=== PATIENT | male | born 1950 | race Caucasian/White ===

== ENCOUNTER 2018-05-16 00:39 | Inpatient (IN) ==
[2018-05-16 01:00] LABS: ABG Base Excess 6.7 mmol/L (-2.4-2.3); ABG HCO3 32.4 mmhg (22.0-26.0); ABG Oxygen Saturation 97 % (90-100); ABG PH 7.35 mmol/L (7.35-7.45); ABG TCO2 34.2 mmhg (23-27)
[2018-05-16 01:01] LABS: ABG PCO2 60.7 mmhg (35.0-45.0)
[2018-05-16 01:14] LABS: Basophils % 0.6 % (0.1-2.0); Eosinophils # 0.1 K/mm3 (0.0-0.4); Eosinophils % 1.1 % (0.1-12.0); Hematocrit 45.2 % (42.0-52.0); Hemoglobin 14.6 g/dL (14.1-18.0); Lymphocytes # 0.7 K/mm3 (0.7-4.5); Lymphocytes % 9.7 K/mm3 (10-50); Mean Corpuscular HGB Conc 32.3 g/dL (31.8-35.4); Mean Corpuscular Hemoglobin 30.6 pg (27.0-31.2); Mean Corpuscular Volume 94.8 fl (80-94); Mean Platelet Volume 6.6 fl (7.4-10.4); Monocytes # 0.5 K/mm3 (0.1-1.0); Monocytes % 7.5 % (1.7-9.3); Neutrophils # 5.7 K/mm3 (1.8-7.8); Neutrophils % 81.2 % (37.0-80.0); Platelet Count 259 K/mm3 (142-424); Red Blood Count 4.76 M/mm3 (4.60-6.20); Red Cell Distribution Width 16.3 % (11.5-17.5)
[2018-05-16 01:33] LABS: Anion Gap 1.8 mEq/L (5-15); Calcium 8.7 mg/dL (8.5-10.1); Potassium 3.8 mmoL/L (3.5-5.1)
--- NOTE | 2018-05-16 02:26 | Emergency Department Note ---
ED Disposition Clinical Impression: Acute exacerbation of chronic obstructive airways disease, Bronchitis Disposition: Admitted as Observation Condition on Discharge: Good Referrals: Dami Finch MD [Primary Care Provider] - - Critical Care Critical Care Time: No Attestation: On 05/16/18, the high probability of a clinically significant, sudden or life threatening deterioration of the following system(s) required my full and direct attention, intervention and personal management. The time I documented below is in addition to time spent performing reported procedures but includes the following listed in this critical care notation. Medical Decision Making - Medical Records Medical records reviewed: Yes: I reviewed the patient's medical records. - Carlos Inquiry Pt receiving controlled substance: No Vital Signs: 05/16/18 00:41 05/16/18 01:00 05/16/18 01:10 Temperature 98.9 F Temperature Source Oral Pulse Rate 89 83 Pulse Rate [Right Brachial] 100 H Respiratory Rate 22 Blood Pressure [Right Arm] 166/109 Blood Pressure Mean [Right Arm] 128 Blood Pressure Source [Right Arm] Automatic Cuff Blood Pressure Position [Right Arm] Sitting 02 Sat by Pulse Oximetry 93 L 96 Oxygen Delivery Method Nasal Cannula Nasal Cannula Oxygen Flow Rate (LPM) 2 6 05/16/18 01:28 05/16/18 01:30 Temperature Temperature Source Pulse Rate Pulse Rate [Right Brachial] 90 92 H Respiratory Rate 20 16 Blood Pressure [Right Arm] 168/94 150/98 Blood Pressure Mean [Right Arm] 118 115 Blood Pressure Source [Right Arm] Automatic Cuff Blood Pressure Position [Right Arm] Sitting 02 Sat by Pulse Oximetry 96 92 L Oxygen Delivery Method Nasal Cannula Nasal Cannula Oxygen Flow Rate (LPM) 2 2 - Lab Data Lab results reviewed: Yes: I reviewed the patient's lab results. Lab Results 05/16/18 00:45: WBC 7.0, RBC 4.76, Hgb 14.6, Hct 45.2, MCV 94.8 H, MCH 30.6, MCHC 32.3, RDW 16.3, Plt Count 259, MPV 6.6 L, Neut % (Auto) 81.2 H, Lymph % (Auto) 9.7 L, [place] % (Auto) 7.5, Eos % (Auto) 1.1, Baso % (Auto) 0.6, Neut # (Auto) 5.7, Lymph # (Auto) 0.7, [place] # (Auto) 0.5, Eos # (Auto) 0.1, Baso # (Auto) 0.0 05/16/18 00:45: Sodium 143, Potassium 3.8, Chloride 105, Carbon Dioxide 40 H, Anion Gap 1.8 L, BUN 16, Creatinine 1.02, Estimated Creat Clear 137, Estimated GFR 73, Est GFR ( Amer) 88, Glucose 161 H, Calcium 8.7, Troponin I 0.03 05/16/18 00:45: Lactate 0.9 05/16/18 00:59: ABG pH 7.35, ABG pCO2 60.7 H, ABG pO2 85.0, ABG HCO3 32.4 H, ABG Total CO2 34.2 H, ABG O2 Saturation 97, ABG Base Excess 6.7 H Result diagrams: 05/16/18 00:45 05/16/18 00:45 Orders (Tests/Meds): ED MEDICATIONS Generic Name Dose Route Start Last Admin Trade Name Freq PRN Reason Stop Dose Admin Sodium Chloride 3 ml 05/16/18 00:57 Sodium Chloride 3% 15ml [facility] 06/15/18 00:56 ONCE PRN INDUCE SPUTUM COLLECTION Discontinued Medications Generic Name Dose Route Start Last Admin Trade Name Freq PRN Reason Stop Dose Admin Albuterol/Ipratropium 3 ml 05/16/18 00:56 05/16/18 00:58 Duoneb 3ml [facility] 05/16/18 00:57 3 ml ONCE ONE Administration Furosemide 40 mg 05/16/18 02:28 Lasix 40mg/4ml Vial IV 05/16/18 02:29 ONCE ONE Sodium Chloride 1,000 mls @ 999 mls/hr 05/16/18 01:00 05/16/18 00:58 Sod Chlor 0.9% 1000ml Bag IV 05/16/18 02:00 999 mls/hr .Q1H1M OFELIA Administration Methylprednisolone Sodium Succinate 125 mg 05/16/18 00:56 05/16/18 00:58 Solu-Medrol 125mg/2ml Vial IV 05/16/18 00:57 125 mg ONCE ONE Administration ORDERS Category Date Time Status XR chest 2V Stat Exams 05/16/18 00:56 Taken BNP [B-Type Natriuretic Peptide] Stat Lab 05/16/18 02:28 Ordered T4 (Thyroxine) Stat Lab 05/16/18 02:31 Ordered TSH [Thyroid Stimulating Hormone] Stat Lab 05/16/18 02:31 Ordered Urinalysis-Acute [Urinalysis and Microscopic] Stat Lab 05/16/18 01:00 Ordered Blood Culture Stat Micro 05/16/18 00:56 Ordered Sputum Culture & Gram Stain Stat Micro 05/16/18 00:57 Ordered Arterial Blood Gas Stat RT 05/16/18 00:56 Ordered ECG Request by /Zayda Stat Y 05/16/18 00:56 Ordered - Radiology Data #1 Image(s): Chest Image Reviewed: Yes I reviewed the patient's radiology image Preliminary Findings: Abnormal (chronic changes ) - ECG Data Tracing #1 Arrhythmias present: other (mat) Ischemic changes: non-specific ST-T wave changes Resp/SOB HPI - General Chief Complaint: Shortness of Breath/Dyspnea Stated Complaint: SHORT OF BREATH Time Seen by Provider: 05/16/18 00:55 Mode of Arrival: EMS Source of Information: Patient, EMS, Medical Record Limitations: Physical Limitations Description of Symptoms (Recalled from ER Triage Doc. by RN): HX OF COPD; DIFFICULTY WITH ADL'S BASELINE - History of Present Illness pt with sob with hx of o2 ep copd and cpap with no fever or chest pain MD Complaint: shortness of breath Onset (ago): day(s) Severity: moderate Consistency/Duration: constant Known history of: COPD Associated symptoms: denies other symptoms Treatment prior to arrival: none - Related Data Home oxygen amount: 2 liters Home Medications Medication Instructions Recorded Confirmed Unobtainable 05/16/18 05/16/18 Allergies Allergy/AdvReac Type Severity Reaction Status Date / Time morphine Allergy Unknown hallucinati Verified 05/16/18 00:58 ons [facility] History I have reviewed the patient's past medical history: Yes Medical History: Reports:: Cancer (SKIN), Diabetes Mellitus Type 2 Denies:: Internal Pacemaker, MRSA Laterality Cases: Left: Arthroscopy Shoulder Other Surgeries: No: Pacemaker Amputation: No Fractures: Yes - Social History Educational Level: Completed High School Smoking Status: Former smoker Tobacco Type: cigarettes #Yrs smoked (if former smoker): 1 Alcohol Intake: never - Psychiatric History Expresses thoughts of harming self/others: None Suicide Plan Description: No Plan ROS Obtained: Yes All systems reviewed & no additional complaints - Constitutional Constitutional: Denies fever(s) - Eyes Eyes: Denies change in vision - ENT Ears, Nose, Mouth, and Throat: Denies sinus pressure - Cardiovascular Cardiovascular: Denies chest pain, Reports dyspnea - Respiratory Respiratory: No cough, No dyspnea - Gastrointestinal Gastrointestingal: Denies: abdominal pain - Genitourinary Male Genitourinary: Denies hematuria - Musculoskeletal Musculoskeletal: Denies joint pain, Denies joint swelling - Integumentary/Breasts Skin/Breast: Denies rash - Neurologic Neurologic: Denies seizure-like activity Physical Exam - General General appearance: in no apparent distress, obese - Head Head exam: normocephalic - Eye Eye exam: Present: PERRL, EOMI - ENT ENT exam: Present: mucous membranes dry - Neck Neck exam: Present: trachea midline - Respiratory Respiratory exam: Present: wheezes, other (dec bs bilat ). Absent: respiratory distress - Cardiovascular Cardiovascular exam: Present: regular rate, systolic murmur, +S4 - Abdominal Exam Abdominal exam: Present: soft - Extremities Exam Extremities exam: Absent: calf tenderness - Neurological Exam Neurological exam: Present: alert, CN II-XII intact - Psychiatric Psychiatric exam: Present: normal affect - Skin Skin exam: Absent: rash
[2018-05-16 03:04] LABS: T4 (Thyroxine) 8.4 ug/dl (4.7-13.3); Thyroid Stimulating Hormone 0.5 uIU/ml (0.358-3.740)
[2018-05-16 03:09] LABS: Microscopic, Urine URINE MICROSCOPIC (MICROSCOPIC)
[2018-05-16 03:13] LABS: Appearance,Urine CLEAR (Clear); Bilirubin,Urine Negative (Negative); Blood, Urine Negative (Negative); Color,Urine YELLOW (Yellow); Glucose,Urine (UA) Negative (Negative); Ketones,Urine 1+ (Negative); Leukocyte Esterase,Urine Negative (Negative); PH,Urine 7.5 (5.0-8.5); Protein,Urine Negative (Negative); Specific Gravity, Urine 1.015 (1.005-1.030)
[2018-05-16 06:29] LABS: Basophils % 0.1 % (0.1-2.0); Eosinophils # 0.1 K/mm3 (0.0-0.4); Eosinophils % 0.7 % (0.1-12.0); Hematocrit 48.7 % (42.0-52.0); Hemoglobin 14.9 g/dL (14.1-18.0); Lymphocytes # 0.2 K/mm3 (0.7-4.5); Lymphocytes % 2.7 K/mm3 (10-50); Mean Corpuscular HGB Conc 30.6 g/dL (31.8-35.4); Mean Corpuscular Hemoglobin 28.9 pg (27.0-31.2); Mean Corpuscular Volume 94.5 fl (80-94); Mean Platelet Volume 6.8 fl (7.4-10.4); Monocytes # 0.3 K/mm3 (0.1-1.0); Monocytes % 4.3 % (1.7-9.3); Neutrophils # 6.2 K/mm3 (1.8-7.8); Neutrophils % 92.3 % (37.0-80.0); Platelet Count 303 K/mm3 (142-424); Red Blood Count 5.15 M/mm3 (4.60-6.20); Red Cell Distribution Width 16.5 % (11.5-17.5); White Blood Count 6.8 K/mm3 (4.8-10.8)
[2018-05-16 06:37] LABS: Calcium 9.1 mg/dL (8.5-10.1)
--- NOTE | 2018-05-16 07:20 | History & Physical Report ---
*Admission Date: 05/16/18 *Chief complaint: Shortness of air and fall *History of present illness: 67-year-old white male with long history of COPD that is oxygen requiring, as well as chronic systolic and diastolic congestive heart failure who is disabled from his disease and uses chronic CPAP at night because of chronic respiratory failure. He states that he awoke in the middle of the night and was very dyspneic, went to the bathroom and fell down. His found him with blood coming from his arms "I was agitated and scratched myself." He states that he still very "stressed" and points to his leg where he has some muscle fasciculations in the right calf that are currently ongoing. Reports that he has been increasingly afflicted with shortness of air and cough, reports that "I do not know what is wrong with me." He was brought to the emergency department, where workup showed evidence of COPD exacerbation with worsening hypercapnia-acute on chronic-he was admitted for COPD exacerbation, enhanced pulmonary toilet and further diagnostic testing. [facility] History I have reviewed the patient's past medical history: Yes Medical History: Reports:: Cancer (skin cancer - neck and nose), Cardiomyopathy, Congestive Heart Failure (Acute on chronic systolic and diastolic failure), Chronic Obstructive Pulmonary Disease (COPD) (Oxygen requiring, uses CPAP/BiPAP at night), Diabetes Mellitus Type 2, Hyperlipidemia, Hypertension Denies:: Internal Pacemaker, MRSA Laterality Cases: Left: Arthroscopy Shoulder Other Surgeries: Yes: Cancer Surgery (skin removal), Skin Cancer Excision. No: Pacemaker Amputation: No Fractures: Yes - *Social History Educational Level: Completed High School Smoking Status: Former smoker Tobacco Type: cigarettes # Packs/Day (cigarettes): 1 #Yrs smoked (if former smoker): 47 Smoking End Date: last year Alcohol Intake: former Alcohol Intake Frequency:: other Occupational Status: retired Housing: house Household Members: spouse, children - Psychiatric History Expresses thoughts of harming self/others: None Suicide Plan Description: No Plan *Family Hx:: Unable to obtain Review of Systems - Review of Systems Review of systems:: pertinent systems reviewed and negative unless documented below - Constitutional Reports fatigue, Reports lack of energy - Eyes Denies blind spots, Denies blurry vision, Denies change in vision - ENT Denies abnormal hearing, Denies bleeding gums - *Cardiovascular Reports shortness of breath, Reports shortness of breath with activity, Reports leg swelling, Reports shortness of breath when lying down, Denies chest pain, Denies rapid, pounding, or irregular heartbeat - *Respiratory Reports change in phlegm color, Reports chest congestion, Reports cough - *Gastrointestinal Denies abdominal pain, Denies belching - *Genitourinary Denies difficulty urinating - *Musculoskeletal Reports abnormal walking, Reports muscle cramps - *Neurologic Denies abnormal walking, Denies seizure-like activity Meds Home Medications Medication Instructions Recorded Confirmed Type Unobtainable 05/16/18 05/16/18 History Allergies Allergy/AdvReac Type Severity Reaction Status Date / Time morphine Allergy Unknown hallucinati Verified 05/16/18 00:58 ons Exam Vital signs and Labs for Last 24 Hours: Temp Pulse Resp BP Pulse Ox 98.5 F 84 42 H 164/101 93 L 05/16/18 03:14 05/16/18 06:16 05/16/18 05:42 05/16/18 05:42 05/16/18 06:16 Laboratory Results - last 24 hr 05/16/18 00:45: WBC 7.0, RBC 4.76, Hgb 14.6, Hct 45.2, MCV 94.8 H, MCH 30.6, MCHC 32.3, RDW 16.3, Plt Count 259, MPV 6.6 L, Neut % (Auto) 81.2 H, Lymph % (Auto) 9.7 L, [place] % (Auto) 7.5, Eos % (Auto) 1.1, Baso % (Auto) 0.6, Neut # (Auto) 5.7, Lymph # (Auto) 0.7, [place] # (Auto) 0.5, Eos # (Auto) 0.1, Baso # (Auto) 0.0 05/16/18 00:45: Sodium 143, Potassium 3.8, Chloride 105, Carbon Dioxide 40 H, Anion Gap 1.8 L, BUN 16, Creatinine 1.02, Estimated Creat Clear 137, Estimated GFR 73, Est GFR ( Amer) 88, Glucose 161 H, Calcium 8.7, Troponin I 0.03 05/16/18 00:45: Lactate 0.9 05/16/18 00:45: B-Natriuretic Peptide 32 05/16/18 00:45: TSH 0.50, Thyroxine (T4) 8.4 05/16/18 00:59: ABG pH 7.35, ABG pCO2 60.7 H, ABG pO2 85.0, ABG HCO3 32.4 H, ABG Total CO2 34.2 H, ABG O2 Saturation 97, ABG Base Excess 6.7 H 05/16/18 02:48: Urine Color Yellow, Urine Appearance Clear, Urine pH 7.5, Ur Specific [place] 1.015, Urine Protein Negative, Urine Glucose (UA) Negative, Urine Ketones 1+, Urine Blood Negative, Urine Nitrate Negative, Urine Bilirubin Negative, Urine Urobilinogen 4.0, Ur Leukocyte Esterase Negative, Urine WBC 3-5 05/16/18 06:05: WBC 6.8, RBC 5.15, Hgb 14.9, Hct 48.7, MCV 94.5 H, MCH 28.9, MCHC 30.6 L, RDW 16.5, Plt Count 303, MPV 6.8 L, Neut % (Auto) 92.3 H, Lymph % (Auto) 2.7 L, [place] % (Auto) 4.3, Eos % (Auto) 0.7, Baso % (Auto) 0.1, Neut # (Auto) 6.2, Lymph # (Auto) 0.2 L, [place] # (Auto) 0.3, Eos # (Auto) 0.1, Baso # (Auto) 0.0 05/16/18 06:05: Sodium 145, Potassium 4.0, Chloride 102, Carbon Dioxide 37 H, Anion Gap 10.0, BUN 18, Creatinine 1.14, Estimated Creat Clear 79, Estimated GFR 64, Est GFR ( Amer) 78, Glucose 205 H D, Calcium 9.1, Magnesium 2.2, Troponin I 0.02 05/16/18 06:15: POC Glucose 187 H I & O for Last 24 hours: Intake & Output 05/13/18 05/14/18 05/15/18 05/16/18 11:59 11:59 11:59 11:59 Intake Total 300 / 300 Balance 300 / 300 Weight 194 lb 3 oz Narrative: Patient is awake oriented 3. Patient is resting on oxygen, does have to take a breath after couple of sentences because of baseline dyspnea. Oropharynx clear. No JVD morning. Lungs have rhonchi throughout, fairly symmetric air entry. Heart regular. Exam compromised abnormal lung sounds. No edema in extremities. Does have muscle fasciculations in the right calf. Able to move all extremities well. Cranial nerves intact. Assessment and Plan (1) Acute on chronic respiratory failure with hypoxia Current visit: Yes Status: Acute Category: Medical Code(s): J96.21 - Acute and chronic respiratory failure with hypoxia Patient is alert. Seems more comfortable. Hold off on BiPAP at this point. Increased pulmonary toilet continue nebulizer treatment levofloxacin and steroids. (2) Diabetes mellitus type 2 in nonobese Current visit: Yes Status: Acute Category: Medical Code(s): E11.9 - Type 2 diabetes mellitus without complications Sliding scale insulin therapy. Try to obtain home medication list (3) Anxiety disorder Current visit: Yes Status: Acute Category: Medical Code(s): F41.9 - Anxiety disorder, unspecified Patient seems afflicted with significant anxiety disorder and this may have caused his fall and shortness of air last night. Low-dose Prn Ativan this morning. (4) Fasciculation of lower extremity Current visit: Yes Status: Acute Category: Medical Code(s): R25.3 - Fasciculation (5) Acute exacerbation of chronic obstructive airways disease Current visit: Yes Status: Acute Category: Medical Code(s): J44.1 - Chronic obstructive pulmonary disease with (acute) exacerbation (6) Bronchitis Current visit: Yes Status: Acute Category: Medical Code(s): J40 - Bronchitis, not specified as acute or chronic
--- NOTE | 2018-05-16 07:26 | Pharmacy Consult Notes ---
[facility] Pharmacy VTE Monitoring - Patient Demographics Admission date: 05/16/18 Report Date: 05/16/18 Time: 07:26 Allergies/Adverse Reactions: Patient Allergies morphine Allergy (Unknown, Verified 05/16/18 00:58) hallucinations Height: 1.83 m Weight: 88.082 kg Patient Problems: Current Active Problems Acute exacerbation of chronic obstructive airways disease (Acute) Bronchitis (Acute) Acute on chronic respiratory failure with hypoxia (Acute) Diabetes mellitus type 2 in nonobese (Acute) Anxiety disorder (Acute) Fasciculation of lower extremity (Acute) - VTE Risk Labs: VTE Related Lab Results Hgb 14.9 g/dL (14.1-18.0) 05/16/18 06:05 Hct 48.7 % (42.0-52.0) 05/16/18 06:05 Plt Count 303 K/mm3 (142-424) 05/16/18 06:05 BUN 18 mg/dL (7-18) 05/16/18 06:05 Creatinine 1.14 mg/dL (0.70-1.30) 05/16/18 06:05 Estimated Creat Clear 79 mL/min (0-300) 05/16/18 06:05 Was VTE Risk Assessment Performed: Yes VTE Score: 7 VTE Risk Level: Moderate Risk - Prophylaxis VTE Prophylaxis Ordered?: Yes Types of VTE Prophylaxis: TEDS Knee High Location of Applied Device: Bilateral Lower Extremeties - VTE Diagnosis Confirmed Treatment or plan recommended: Continue Current Treatment
[2018-05-16 09:30] LABS: Lymphocytes % 1 % (10-50); Monocytes % 1 % (2-9); Neutrophils % 98 % (42-76); Total Cells Counted 100
[2018-05-16 09:31] LABS: Hypochromasia 1+
--- NOTE | 2018-05-16 17:52 | Progress Note ---
Internal Medicine - PN: Subj *Date: 05/16/18 *Time: 17:50 Interval history: Through the day patient has made some progress with his breathing. Has been maintained on 3 L of nasal cannula. Seems a little bit less anxious this morning. Has had periods of some confusion although he does have some baseline aberrant behavior, such as urinating in his bed and dumping out his urinal. I discussed CT scan of chest with him today. Exam Vital signs and Labs for Last 24 Hours: Temp Pulse Resp BP Pulse Ox 98.4 F 115 H 32 H 146/86 94 L 05/16/18 15:29 05/16/18 15:29 05/16/18 15:29 05/16/18 15:29 05/16/18 15:29 Laboratory Results - last 24 hr 05/16/18 00:45: WBC 7.0, RBC 4.76, Hgb 14.6, Hct 45.2, MCV 94.8 H, MCH 30.6, MCHC 32.3, RDW 16.3, Plt Count 259, MPV 6.6 L, Neut % (Auto) 81.2 H, Lymph % (Auto) 9.7 L, [place] % (Auto) 7.5, Eos % (Auto) 1.1, Baso % (Auto) 0.6, Neut # (Auto) 5.7, Lymph # (Auto) 0.7, [place] # (Auto) 0.5, Eos # (Auto) 0.1, Baso # (Auto) 0.0 05/16/18 00:45: Sodium 143, Potassium 3.8, Chloride 105, Carbon Dioxide 40 H, Anion Gap 1.8 L, BUN 16, Creatinine 1.02, Estimated Creat Clear 137, Estimated GFR 73, Est GFR ( Amer) 88, Glucose 161 H, Calcium 8.7, Troponin I 0.03 05/16/18 00:45: Lactate 0.9 05/16/18 00:45: B-Natriuretic Peptide 32 05/16/18 00:45: TSH 0.50, Thyroxine (T4) 8.4 05/16/18 00:45: Magnesium 2.4 H 05/16/18 00:59: ABG pH 7.35, ABG pCO2 60.7 H, ABG pO2 85.0, ABG HCO3 32.4 H, ABG Total CO2 34.2 H, ABG O2 Saturation 97, ABG Base Excess 6.7 H 05/16/18 02:48: Urine Color Yellow, Urine Appearance Clear, Urine pH 7.5, Ur Specific [place] 1.015, Urine Protein Negative, Urine Glucose (UA) Negative, Urine Ketones 1+, Urine Blood Negative, Urine Nitrate Negative, Urine Bilirubin Negative, Urine Urobilinogen 4.0, Ur Leukocyte Esterase Negative, Urine WBC 3-5 05/16/18 06:05: WBC 6.8, RBC 5.15, Hgb 14.9, Hct 48.7, MCV 94.5 H, MCH 28.9, MCHC 30.6 L, RDW 16.5, Plt Count 303, MPV 6.8 L, Neut % (Auto) 92.3 H, Lymph % (Auto) 2.7 L, [place] % (Auto) 4.3, Eos % (Auto) 0.7, Baso % (Auto) 0.1, Neut # (Auto) 6.2, Lymph # (Auto) 0.2 L, [place] # (Auto) 0.3, Eos # (Auto) 0.1, Baso # (Auto) 0.0, Total Counted 100, Neutrophils % (Manual) 98 H, Lymphocytes % (Manual) 1 L, Monocytes % (Manual) 1 L, Platelet Estimate Normal, Hypochromasia 1+ 05/16/18 06:05: Sodium 145, Potassium 4.0, Chloride 102, Carbon Dioxide 37 H, Anion Gap 10.0, BUN 18, Creatinine 1.14, Estimated Creat Clear 79, Estimated GFR 64, Est GFR ( Amer) 78, Glucose 205 H D, Calcium 9.1, Magnesium 2.2, Troponin I 0.02 05/16/18 06:15: POC Glucose 187 H 05/16/18 08:35: Troponin I < 0.02 05/16/18 12:37: POC Glucose 146 H 05/16/18 17:20: POC Glucose 138 H I & O for Last 24 hours: Intake & Output 05/14/18 05/15/18 05/16/18 05/17/18 11:59 11:59 11:59 11:59 Intake Total 540 / 540 420 / 420 Output Total 300 / 300 Balance 240 / 240 420 / 420 Weight 194 lb 3 oz Narrative: ENT exam remains clear. Poor dentition. Lungs are slightly improved with rhonchorous sounds throughout. Symmetric air entry. No edema or clubbing. Assessment and Plan (1) Acute on chronic respiratory failure with hypoxia Current visit: Yes Status: Acute Category: Medical Code(s): J96.21 - Acute and chronic respiratory failure with hypoxia Respiratory status seems improving. Labs tomorrow morning. Patient does not really seem that far from his baseline in regards to his lung exam. (2) Diabetes mellitus type 2 in nonobese Current visit: Yes Status: Acute Category: Medical Code(s): E11.9 - Type 2 diabetes mellitus without complications (3) Anxiety disorder Current visit: Yes Status: Acute Category: Medical Code(s): F41.9 - Anxiety disorder, unspecified (4) Fasciculation of lower extremity Current visit: Yes Status: Acute Category: Medical Code(s): R25.3 - Fasciculation (5) Acute exacerbation of chronic obstructive airways disease Current visit: Yes Status: Acute Category: Medical Code(s): J44.1 - Chronic obstructive pulmonary disease with (acute) exacerbation (6) Bronchitis Current visit: Yes Status: Acute Category: Medical Code(s): J40 - Bronchitis, not specified as acute or chronic (7) Renal mass Current visit: Yes Status: Acute Category: Medical Code(s): N28.89 - Other specified disorders of kidney and ureter Given appearance on CT of chest we will image CT of abdomen today. Urology consult tomorrow. Patient does report lots of hematuria over the past 3 or 4 months although he states "my would know more about that and she keeps track of that."
[2018-05-17 06:14] LABS: Eosinophils # 0.1 K/mm3 (0.0-0.4); Eosinophils % 0.8 % (0.1-12.0); Hematocrit 46.9 % (42.0-52.0); Hemoglobin 14.6 g/dL (14.1-18.0); Lymphocytes # 0.3 K/mm3 (0.7-4.5); Lymphocytes % 2.1 K/mm3 (10-50); Mean Corpuscular HGB Conc 31.2 g/dL (31.8-35.4); Mean Corpuscular Hemoglobin 29.1 pg (27.0-31.2); Mean Corpuscular Volume 93.1 fl (80-94); Mean Platelet Volume 6.9 fl (7.4-10.4); Monocytes % 6.9 % (1.7-9.3); Neutrophils # 12.6 K/mm3 (1.8-7.8); Neutrophils % 90.2 % (37.0-80.0); Platelet Count 314 K/mm3 (142-424); Red Blood Count 5.04 M/mm3 (4.60-6.20); Red Cell Distribution Width 16.8 % (11.5-17.5)
[2018-05-17 06:18] LABS: Albumin Level 3.2 gm/dL (3.4-5.0); Albumin/Globulin Ratio 0.9 (1.1-1.8); Anion Gap 11.1 mEq/L (5-15); Bilirubin,Total 0.6 mg/dL (0.2-1.0); Calcium 8.8 mg/dL (8.5-10.1); Globulin 3.4 gm/dl (1.3-3.2); Potassium 4.1 mmoL/L (3.5-5.1); Total Protein,Serum 6.6 gm/dL (6.4-8.2)
[2018-05-17 08:37] LABS: Lymphocytes % 1 % (10-50); Monocytes % 3 % (2-9); Neutrophils % 94 % (42-76); Total Cells Counted 100
[2018-05-17 08:38] LABS: Stomatocytes 1+
[2018-05-17 08:42] LABS: Hypochromasia 1+
--- NOTE | 2018-05-17 16:29 | Consult Report ---
*Admission Date: 05/16/18 *History of present illness: 67-year-old white male with long history of COPD that is oxygen requiring, as we ll as chronic systolic and diastolic congestive heart failure who is disabled from his disease and uses chronic CPAP at night because of chronic respiratory failure. He states that he awoke in the middle of the night and was very dyspneic, went to the bathroom and fell down. His found him with blood coming from his arms "I was agitated and scratched myself." He states that he still very "stressed" and points to his leg where he has some muscle fasciculations in the right calf that are currently ongoing. Reports that he has been increasingly afflicted with shortness of air and cough, reports that "I do not know what is wrong with me." He was brought to the emergency department, where workup showed evidence of COPD exacerbation with worsening hypercapnia-acute on chronic-he was admitted for COPD exacerbation, enhanced pulmonary toilet and further diagnostic testing. I have been asked to see the above patient with above complaints with recently noted right upper pole renal mass as well as right renal hilar mass/renal vein thrombus. He was admitted with severe shortness of breath which has improved slightly but he is still on BiPAP. CT scan of the chest revealed a mass upper pole right kidney which look to be solid and enhancing. It was about 3-1/2 cm in diameter. He also had a mass in the hilum of the right kidney. Repeat CT scan of the kidney which showed no other lesions. It was difficult to discern whether this hilar mass was in fact a large dilated renal vein full of clot/tumor. He has had some gross hematuria. Reviewed all available images. I discussed the results with the patient. I also reviewed the CT scans with Dr. Reina the radiologist. I recommend that we obtain a MRI with and without contrast to try to determine whether there is thrombus within the renal vein. I did inform the patient that if he is a surgical candidate his best option would be to consider right total nephrectomy. He will follow-up with me in 1 week. Looks to be at this time a very poor surgical candidate but I believe we should further stage his renal anatomy. Review of Systems - *Neurologic Denies abnormal walking, Denies abnormal hearing, Denies seizure-like activity [facility] History Medical History: Reports:: Cancer (skin cancer - neck and nose), Cardiomyopathy, Congestive Heart Failure (Acute on chronic systolic and diastolic failure), Chronic Obstructive Pulmonary Disease (COPD) (Oxygen requiring, uses CPAP/BiPAP at night), Diabetes Mellitus Type 2, Hyperlipidemia, Hypertension Denies:: Internal Pacemaker, MRSA Laterality Cases: Left: Arthroscopy Shoulder Other Surgeries: Yes: Cancer Surgery (skin removal), Skin Cancer Excision. No: Pacemaker Amputation: No Fractures: Yes - *Social History Educational Level: Completed High School Smoking Status: Former smoker Tobacco Type: cigarettes # Packs/Day (cigarettes): 1 #Yrs smoked (if former smoker): 47 Smoking End Date: last year Alcohol Intake: former Alcohol Intake Frequency:: other Occupational Status: retired Housing: house Household Members: spouse, children - Psychiatric History Expresses thoughts of harming self/others: None Suicide Plan Description: No Plan *Family Hx:: Unable to obtain Meds Home Medications Medication Instructions Recorded Confirmed Type Aspirin [Aspirin 81mg EC Tab] 81 mg PO DAILY 05/16/18 05/16/18 History Furosemide [Furosemide 40MG tAB] 40 mg PO DAILY 05/16/18 05/16/18 History Lisinopril [Lisinopril 10mg Tab] 10 mg PO DAILY 05/16/18 05/16/18 History Metformin HCl [Glucophage] 1,000 mg PO BID 05/16/18 05/16/18 History Verapamil HCl [Calan SR 120mg 120 mg PO DAILY 05/16/18 05/16/18 History tablet] Allergies Allergy/AdvReac Type Severity Reaction Status Date / Time morphine Allergy Unknown hallucinati Verified 05/16/18 00:58 ons Exam Vital signs and Labs for Last 24 Hours: Temp Pulse Resp BP Pulse Ox 97.1 F L 130 H 22 106/63 99 05/17/18 12:00 05/17/18 15:41 05/17/18 12:00 05/17/18 12:00 05/17/18 12:00 Laboratory Results - last 24 hr 05/16/18 17:20: POC Glucose 138 H 05/16/18 20:09: POC Glucose 217 H 05/17/18 01:02: POC Glucose 128 H 05/17/18 05:50: WBC 14.0 H D, RBC 5.04, Hgb 14.6, Hct 46.9, MCV 93.1, MCH 29.1, MCHC 31.2 L, RDW 16.8, Plt Count 314, MPV 6.9 L, Neut % (Auto) 90.2 H, Lymph % (Auto) 2.1 L, [place] % (Auto) 6.9, Eos % (Auto) 0.8, Baso % (Auto) 0.0 L, Neut # (Auto) 12.6 H, Lymph # (Auto) 0.3 L, [place] # (Auto) 1.0, Eos # (Auto) 0.1, Baso # (Auto) 0.0, Total Counted 100, Neutrophils % (Manual) 94 H, Band Neutrophils % 2.0, Lymphocytes % (Manual) 1 L, Monocytes % (Manual) 3, Platelet Estimate Normal, Hypochromasia 1+, Stomatocytes 1+ 05/17/18 05:50: Sodium 144, Potassium 4.1, Chloride 102, Carbon Dioxide 35 H, Anion Gap 11.1, BUN 35 H D, Creatinine 2.37 H D, Estimated Creat Clear 49, Estimated GFR 28 L, Est GFR ( Amer) 33 L D, Glucose 153 H D, Calcium 8.8, Total Bilirubin 0.6, AST 18, ALT 22, Alkaline Phosphatase 106, Total Protein 6.6, Albumin 3.2 L, Globulin 3.4 H, Albumin/Globulin Ratio 0.9 L 05/17/18 05:57: POC Glucose 132 H 05/17/18 12:20: POC Glucose 124 H I & O for Last 24 hours: Intake & Output 05/14/18 05/15/18 05/16/18 05/17/18 23:59 23:59 23:59 23:59 Intake Total 1380 / 1380 600 / 600 Output Total 600 / 600 Balance 780 / 780 600 / 600 Weight 88.082 kg 112.066 kg Results - Labs 05/17/18 05:50 05/17/18 05:50 Laboratory Results - last 24 hr 05/16/18 17:20: POC Glucose 138 H 05/16/18 20:09: POC Glucose 217 H 05/17/18 01:02: POC Glucose 128 H 05/17/18 05:50: WBC 14.0 H D, RBC 5.04, Hgb 14.6, Hct 46.9, MCV 93.1, MCH 29.1, MCHC 31.2 L, RDW 16.8, Plt Count 314, MPV 6.9 L, Neut % (Auto) 90.2 H, Lymph % (Auto) 2.1 L, [place] % (Auto) 6.9, Eos % (Auto) 0.8, Baso % (Auto) 0.0 L, Neut # (Auto) 12.6 H, Lymph # (Auto) 0.3 L, [place] # (Auto) 1.0, Eos # (Auto) 0.1, Baso # (Auto) 0.0, Total Counted 100, Neutrophils % (Manual) 94 H, Band Neutrophils % 2.0, Lymphocytes % (Manual) 1 L, Monocytes % (Manual) 3, Platelet Estimate Normal, Hypochromasia 1+, Stomatocytes 1+ 05/17/18 05:50: Sodium 144, Potassium 4.1, Chloride 102, Carbon Dioxide 35 H, Anion Gap 11.1, BUN 35 H D, Creatinine 2.37 H D, Estimated Creat Clear 49, Estimated GFR 28 L, Est GFR ( Amer) 33 L D, Glucose 153 H D, Calcium 8.8, Total Bilirubin 0.6, AST 18, ALT 22, Alkaline Phosphatase 106, Total Protein 6.6, Albumin 3.2 L, Globulin 3.4 H, Albumin/Globulin Ratio 0.9 L 05/17/18 05:57: POC Glucose 132 H 05/17/18 12:20: POC Glucose 124 H Assessment and Plan (1) Acute on chronic respiratory failure with hypoxia Current visit: Yes Status: Acute Category: Medical Code(s): J96.21 - Acute and chronic respiratory failure with hypoxia (2) Diabetes mellitus type 2 in nonobese Current visit: Yes Status: Acute Category: Medical Code(s): E11.9 - Type 2 diabetes mellitus without complications (3) Anxiety disorder Current visit: Yes Status: Acute Category: Medical Code(s): F41.9 - Anxiety disorder, unspecified (4) Fasciculation of lower extremity Current visit: Yes Status: Acute Category: Medical Code(s): R25.3 - Fasciculation (5) Acute exacerbation of chronic obstructive airways disease Current visit: Yes Status: Acute Category: Medical Code(s): J44.1 - Chronic obstructive pulmonary disease with (acute) exacerbation (6) Bronchitis Current visit: Yes Status: Acute Category: Medical Code(s): J40 - Bronchitis, not specified as acute or chronic (7) Renal mass Current visit: Yes Status: Acute Category: Medical Code(s): N28.89 - Other specified disorders of kidney and ureter
--- NOTE | 2018-05-17 17:54 | Progress Note ---
Internal Medicine - PN: Subj *Date: 05/17/18 *Time: 08:45 Interval history: Patient continued to be dyspneic overnight. Did not wear BiPAP throughout the evening. Continues to be worried this morning getting up to go to the bathroom the patient was in atrial fibrillation and when he returned to his bed appeared to have transition to A. fib with RVR. EKG obtained this morning showing sustained rapid ventricular rhythm. Patient felt fatigued but was hemodynamically stable with blood pressures in the normal range. Denied nausea, vomiting, syncope, diarrhea. Worried about his grandkids this morning. Exam Vital signs and Labs for Last 24 Hours: Temp Pulse Resp BP Pulse Ox 97.9 F 96 H 24 128/58 97 05/17/18 16:00 05/17/18 16:00 05/17/18 16:00 05/17/18 16:00 05/17/18 16:00 Laboratory Results - last 24 hr 05/16/18 20:09: POC Glucose 217 H 05/17/18 01:02: POC Glucose 128 H 05/17/18 05:50: WBC 14.0 H D, RBC 5.04, Hgb 14.6, Hct 46.9, MCV 93.1, MCH 29.1, MCHC 31.2 L, RDW 16.8, Plt Count 314, MPV 6.9 L, Neut % (Auto) 90.2 H, Lymph % (Auto) 2.1 L, [place] % (Auto) 6.9, Eos % (Auto) 0.8, Baso % (Auto) 0.0 L, Neut # (Auto) 12.6 H, Lymph # (Auto) 0.3 L, [place] # (Auto) 1.0, Eos # (Auto) 0.1, Baso # (Auto) 0.0, Total Counted 100, Neutrophils % (Manual) 94 H, Band Neutrophils % 2.0, Lymphocytes % (Manual) 1 L, Monocytes % (Manual) 3, Platelet Estimate Normal, Hypochromasia 1+, Stomatocytes 1+ 05/17/18 05:50: Sodium 144, Potassium 4.1, Chloride 102, Carbon Dioxide 35 H, Anion Gap 11.1, BUN 35 H D, Creatinine 2.37 H D, Estimated Creat Clear 49, Estimated GFR 28 L, Est GFR ( Amer) 33 L D, Glucose 153 H D, Calcium 8.8, Total Bilirubin 0.6, AST 18, ALT 22, Alkaline Phosphatase 106, Total Protein 6.6, Albumin 3.2 L, Globulin 3.4 H, Albumin/Globulin Ratio 0.9 L 05/17/18 05:57: POC Glucose 132 H 05/17/18 12:20: POC Glucose 124 H 05/17/18 16:26: POC Glucose 126 H I & O for Last 24 hours: Intake & Output 05/14/18 05/15/18 05/16/18 05/17/18 23:59 23:59 23:59 23:59 Intake Total 1380 / 1380 840 / 840 Output Total 600 / 600 Balance 780 / 780 840 / 840 Weight 88.082 kg 112.066 kg - Constitutional mild distress, morbidly obese - *Routine HEENT Exam Head: Present: normocephalic, atraumatic Eye: Present: EOMI, PERRL ENT: Present: mucous membranes moist - *Routine Neck Exam Present: supple, full ROM, JVD. Absent: lymphadenopathy - *Routine Respiratory Exam Present: accessory muscle use, prolonged expiratory phase, wheezes, distant breath sounds. Absent: rales - *Routine Cardiovascular Exam Present: Normal S1, Normal S2, tachycardia, irregularly irregular - *Routine Abdominal Exam Present: soft, normoactive bowel sounds - *Routine Rectal Exam Patient deferred: visual exam - *Routine Exam Patient deferred: penile exam - *Routine Extremities Exam Present: edema (Trace). Absent: cyanosis, clubbing - *Routine Skin Exam Present: intact, ecchymosis. Absent: cyanosis, erythema - *Routine Neurological Exam Present: alert Poor historian, response to medical history questions is "my keeps track of that" Assessment and Plan (1) Acute on chronic respiratory failure with hypoxia Current visit: Yes Status: Acute Category: Medical Code(s): J96.21 - Acute and chronic respiratory failure with hypoxia Continue respiratory support with supplemental oxygen as needed goal greater than 92% while awake, greater than 88% while asleep -Patient benefits from BiPAP, use while asleep as long as he -Any breathing treatments as ordered (2) Diabetes mellitus type 2 in nonobese Current visit: Yes Status: Acute Category: Medical Code(s): E11.9 - Type 2 diabetes mellitus without complications (3) Anxiety disorder Current visit: Yes Status: Acute Category: Medical Code(s): F41.9 - Anxiety disorder, unspecified (4) Fasciculation of lower extremity Current visit: Yes Status: Acute Category: Medical Code(s): R25.3 - Fasciculation (5) Acute exacerbation of chronic obstructive airways disease Current visit: Yes Status: Acute Category: Medical Code(s): J44.1 - Chronic obstructive pulmonary disease with (acute) exacerbation Continue antibiotics and steroids -Wean oxygen as tolerated (6) Bronchitis Current visit: Yes Status: Acute Category: Medical Code(s): J40 - Bronchitis, not specified as acute or chronic (7) Renal mass Current visit: Yes Status: Acute Category: Medical Code(s): N28.89 - Other specified disorders of kidney and ureter (8) Atrial fibrillation with RVR Current visit: Yes Status: Acute Category: Medical Code(s): I48.91 - Unspecified atrial fibrillation A. fib appears to have been chronic, transition to RVR today -Initiated diltiazem IV 1 with subsequent oral initiation of diltiazem -Goal rate less than 110 bpm -Required one-time dose of 5 mg of metoprolol -Currently tolerating 60 mg diltiazem every 6 hours with rate between 90 and 110, if maintained hemodynamic stability transition to 240 mg extended release tomorrow -[id number] VASc: 5 giving 7.2% risk of Stroke yearly -Hasbled: 2 (ASA, Age >65) with 4.2% risk of bleed yearly - echo in the morning to assess for valvular etiology, no clear record of previous bleed, given chads vasc score patient would benefit from anticoagulation with either warfarin or a Noac. Consider initiation pending echo -Prophylactic heparin at this
[2018-05-18 05:14] LABS: Eosinophils # 0.1 K/mm3 (0.0-0.4); Eosinophils % 0.6 % (0.1-12.0); Hematocrit 42.5 % (42.0-52.0); Lymphocytes # 0.3 K/mm3 (0.7-4.5); Lymphocytes % 1.9 K/mm3 (10-50); Mean Corpuscular HGB Conc 30.8 g/dL (31.8-35.4); Mean Corpuscular Hemoglobin 28.8 pg (27.0-31.2); Mean Corpuscular Volume 93.6 fl (80-94); Mean Platelet Volume 7.1 fl (7.4-10.4); Monocytes # 0.8 K/mm3 (0.1-1.0); Monocytes % 5.4 % (1.7-9.3); Neutrophils # 13.3 K/mm3 (1.8-7.8); Neutrophils % 92.1 % (37.0-80.0); Platelet Count 321 K/mm3 (142-424); Red Blood Count 4.54 M/mm3 (4.60-6.20); Red Cell Distribution Width 17.3 % (11.5-17.5); White Blood Count 14.4 K/mm3 (4.8-10.8)
[2018-05-18 05:20] LABS: Hemoglobin 13.2 g/dL (14.1-18.0)
[2018-05-18 05:24] LABS: Anion Gap 10.6 mEq/L (5-15); Calcium 8.5 mg/dL (8.5-10.1); Potassium 4.6 mmoL/L (3.5-5.1)
[2018-05-18 06:19] LABS: Anisocytosis 1+; Neutrophils % 100 % (42-76); Stomatocytes 1+; Total Cells Counted 100
--- NOTE | 2018-05-18 08:05 | Progress Note ---
Internal Medicine - PN: Subj *Date: 05/18/18 *Time: 08:02 Interval history: Overnight patient has slept comfortably on BiPAP, nurses report no incidence of pain or significant dyspnea. Pulse rate has been in the low 70 range --tolerating diltiazem well. Blood pressure is been slightly lower. Urology consultation reviewed and appreciated. Exam Vital signs and Labs for Last 24 Hours: Temp Pulse Resp BP Pulse Ox 97.7 F 97 H 22 100/60 97 05/18/18 07:25 05/18/18 07:25 05/18/18 07:25 05/18/18 07:25 05/18/18 07:25 Laboratory Results - last 24 hr 05/17/18 05:50: Total Counted 100, Neutrophils % (Manual) 94 H, Band Neutrophils % 2.0, Lymphocytes % (Manual) 1 L, Monocytes % (Manual) 3, Platelet Estimate Normal, Hypochromasia 1+, Stomatocytes 1+ 05/17/18 12:20: POC Glucose 124 H 05/17/18 16:26: POC Glucose 126 H 05/17/18 21:10: POC Glucose 130 H 05/18/18 05:03: WBC 14.4 H, RBC 4.54 L, Hgb 13.2 L, Hct 42.5, MCV 93.6, MCH 28.8, MCHC 30.8 L, RDW 17.3, Plt Count 321, MPV 7.1 L, Neut % (Auto) 92.1 H, Lymph % (Auto) 1.9 L, [place] % (Auto) 5.4, Eos % (Auto) 0.6, Baso % (Auto) 0.0 L, Neut # (Auto) 13.3 H, Lymph # (Auto) 0.3 L, [place] # (Auto) 0.8, Eos # (Auto) 0.1, Baso # (Auto) 0.0, Total Counted 100, Neutrophils % (Manual) 100 H, Platelet Estimate Normal, RBC Morphology Not Reportable, Anisocytosis 1+, Stomatocytes 1+ 05/18/18 05:03: Sodium 141, Potassium 4.6, Chloride 102, Carbon Dioxide 33 H, Anion Gap 10.6, BUN 59 H D, Creatinine 4.46 H D, Estimated Creat Clear 27, Estimated GFR 13 L*, Est GFR ( Amer) 16 L* D, Glucose 176 H, Calcium 8.5, Magnesium 2.3 H I & O for Last 24 hours: Intake & Output 05/15/18 05/16/18 05/17/18 05/18/18 11:59 11:59 11:59 11:59 Intake Total 540 / 540 1200 / 1200 480 / 480 Output Total 300 / 300 300 / 300 Balance 240 / 240 900 / 900 480 / 480 Weight 194 lb 3 oz 247 lb 1 oz 255 lb 8 oz Microbiology Reports for the Last 24 Hours: Microbiology 05/16/18 00:56 Blood Blood Culture - Preliminary NO GROWTH AFTER 48 HOURS 05/16/18 00:56 Blood Blood Culture - Preliminary NO GROWTH AFTER 48 HOURS Narrative: Patient wearing BiPAP. Oropharynx otherwise clear and moist. No JVD. Lungs with diffuse rhonchi. Symmetric air entry. Heart rate irregular, exam is difficult because of lung sounds. Abdomen soft. Extremities are warm and well-perfused. Able to move all extremities well. Assessment and Plan (1) Acute on chronic respiratory failure with hypoxia Current visit: Yes Status: Acute Category: Medical Code(s): J96.21 - Acute and chronic respiratory failure with hypoxia Currently on BiPAP. Patient is stable from a respiratory standpoint. Given his significant COPD I do not see significant improvement in the next 12- 24 hours. Continue antibiotics and steroids. (2) Diabetes mellitus type 2 in nonobese Current visit: Yes Status: Acute Category: Medical Code(s): E11.9 - Type 2 diabetes mellitus without complications (3) Anxiety disorder Current visit: Yes Status: Acute Category: Medical Code(s): F41.9 - Anxiety disorder, unspecified (4) Fasciculation of lower extremity Current visit: Yes Status: Acute Category: Medical Code(s): R25.3 - Fasciculation (5) Acute exacerbation of chronic obstructive airways disease Current visit: Yes Status: Acute Category: Medical Code(s): J44.1 - Chronic obstructive pulmonary disease with (acute) exacerbation (6) Bronchitis Current visit: Yes Status: Acute Category: Medical Code(s): J40 - Bronchitis, not specified as acute or chronic (7) Renal mass Current visit: Yes Status: Acute Category: Medical Code(s): N28.89 - Other specified disorders of kidney and ureter Dr. Brooks consult reviewed. Patient is certainly not a surgical candidate at this point. At this point we will not be able to get MRI because of his reliance on BiPAP. This will be done when able (8) Atrial fibrillation with RVR Current visit: Yes Status: Acute Category: Medical Code(s): I48.91 - Unspecified atrial fibrillation Echo pending today. Start treatment dose Lovenox. Lower dose of diltiazem today because of hypotension. (9) Acute on chronic renal failure Current visit: Yes Status: Acute Category: Medical Code(s): N17.9 - Acute kidney failure, unspecified; N18.9 - Chronic kidney disease, unspecified Creatinine worsened overnight. Low-dose IV fluid bolus through the day. Check creatinine tomorrow.
[2018-05-18 16:03] LABS: Microscopic, Urine URINE MICROSCOPIC (MICROSCOPIC)
[2018-05-18 16:06] LABS: Appearance,Urine SL CLOUDY (Clear); Bilirubin,Urine Negative (Negative); Blood, Urine 3+ (Negative); Color,Urine DK YELLOW (Yellow); Glucose,Urine (UA) Negative (Negative); Ketones,Urine Negative (Negative); Leukocyte Esterase,Urine TRACE (Negative); PH,Urine 5.5 (5.0-8.5); Protein,Urine Negative (Negative); Urobilinogen,Urine 0.2 EU/dl (0.2)
[2018-05-18 16:37] LABS: Bacteria,Urine Trace /lpf; RBC,Urine TNTC #/hpf (0-3)
[2018-05-19 06:06] LABS: Eosinophils # 0.3 K/mm3 (0.0-0.4); Eosinophils % 1.6 % (0.1-12.0); Hematocrit 41.8 % (42.0-52.0); Hemoglobin 12.9 g/dL (14.1-18.0); Lymphocytes # 0.3 K/mm3 (0.7-4.5); Lymphocytes % 1.7 K/mm3 (10-50); Mean Corpuscular HGB Conc 30.8 g/dL (31.8-35.4); Mean Corpuscular Hemoglobin 28.8 pg (27.0-31.2); Mean Corpuscular Volume 93.4 fl (80-94); Mean Platelet Volume 7.8 fl (7.4-10.4); Monocytes # 0.7 K/mm3 (0.1-1.0); Monocytes % 4.4 % (1.7-9.3); Neutrophils # 15.5 K/mm3 (1.8-7.8); Neutrophils % 92.4 % (37.0-80.0); Platelet Count 291 K/mm3 (142-424); Red Blood Count 4.47 M/mm3 (4.60-6.20); Red Cell Distribution Width 17.5 % (11.5-17.5); White Blood Count 16.8 K/mm3 (4.8-10.8)
[2018-05-19 06:53] LABS: Albumin Level 2.7 gm/dL (3.4-5.0); Albumin/Globulin Ratio 0.9 (1.1-1.8); Anion Gap 13.7 mEq/L (5-15); Bilirubin,Total 0.5 mg/dL (0.2-1.0); Calcium 8.3 mg/dL (8.5-10.1); Globulin 3.1 gm/dl (1.3-3.2); Potassium 4.7 mmoL/L (3.5-5.1); Total Protein,Serum 5.8 gm/dL (6.4-8.2)
[2018-05-19 07:19] LABS: Lymphocytes % 2 % (10-50); Monocytes % 2 % (2-9); Neutrophils % 95 % (42-76); RBC Morphology Normal; Total Cells Counted 100
--- NOTE | 2018-05-19 08:13 | Progress Note ---
Internal Medicine - PN: Subj *Date: 05/19/18 *Time: 07:30 Interval history: Patient is resting in bed, on Bi-pap. Hematuria is less concentrated this morning. Alert and oriented x3. Lung sounds with diffuse rhonchi. Irregularly irregular, rate 70's. Abdomen soft and nontender. No LE edema Exam Vital signs and Labs for Last 24 Hours: Temp Pulse Resp BP Pulse Ox 97.9 F 93 H 24 122/67 97 05/19/18 07:53 05/19/18 07:53 05/19/18 07:53 05/19/18 07:53 05/19/18 07:53 Laboratory Results - last 24 hr 05/18/18 05:57: POC Glucose 170 H 05/18/18 11:10: POC Glucose 174 H 05/18/18 15:30: Urine Color Dk yellow, Urine Appearance Sl cloudy, Urine pH 5.5, Ur Specific [place] 1.020, Urine Protein Negative, Urine Glucose (UA) Negative, Urine Ketones Negative, Urine Blood 3+, Urine Nitrate Negative, Urine Bilirubin Negative, Urine Urobilinogen 0.2, Ur Leukocyte Esterase Trace, Urine RBC Tntc, Urine WBC None, Ur Squamous Epith Cells None, Urine Bacteria Trace 05/18/18 16:34: POC Glucose 158 H 05/18/18 20:26: POC Glucose 193 H 05/19/18 05:48: WBC 16.8 H, RBC 4.47 L, Hgb 12.9 L, Hct 41.8 L, MCV 93.4, MCH 28.8, MCHC 30.8 L, RDW 17.5, Plt Count 291, MPV 7.8, Neut % (Auto) 92.4 H, Lymph % (Auto) 1.7 L, [place] % (Auto) 4.4, Eos % (Auto) 1.6, Baso % (Auto) 0.0 L, Neut # (Auto) 15.5 H, Lymph # (Auto) 0.3 L, [place] # (Auto) 0.7, Eos # (Auto) 0.3, Baso # (Auto) 0.0, Total Counted 100, Neutrophils % (Manual) 95 H, Band Neutrophils % 1.0, Lymphocytes % (Manual) 2 L, Monocytes % (Manual) 2, Platelet Estimate N ormal, RBC Morphology Normal 05/19/18 05:48: Sodium 143, Potassium 4.7, Chloride 106, Carbon Dioxide 28, Anion Gap 13.7, BUN 72 H, Creatinine 2.77 H D, Estimated Creat Clear 43, Estimated GFR 23 L, Est GFR ( Amer) 28 L D, Glucose 149 H, Calcium 8.3 L, Total Bilirubin 0.5, AST 47 H D, ALT 20, Alkaline Phosphatase 81, Total Protein 5.8 L, Albumin 2.7 L, Globulin 3.1, Albumin/Globulin Ratio 0.9 L 05/19/18 06:04: POC Glucose 151 H I & O for Last 24 hours: Intake & Output 05/16/18 05/17/18 05/18/18 05/19/18 11:59 11:59 11:59 11:59 Intake Total 540 / 540 1200 / 1200 480 / 480 1575 / 1575 Output Total 300 / 300 300 / 300 1900 / 1900 Balance 240 / 240 900 / 900 480 / 480 -325 / -325 Weight 194 lb 3 oz 247 lb 1 oz 255 lb 8 oz 254 lb 4 oz Assessment and Plan (1) Acute on chronic respiratory failure with hypoxia Current visit: Yes Status: Acute Category: Medical Code(s): J96.21 - Acute and chronic respiratory failure with hypoxia (2) Diabetes mellitus type 2 in nonobese Current visit: Yes Status: Acute Category: Medical Code(s): E11.9 - Type 2 diabetes mellitus without complications (3) Anxiety disorder Current visit: Yes Status: Acute Category: Medical Code(s): F41.9 - Anxiety disorder, unspecified (4) Fasciculation of lower extremity Current visit: Yes Status: Acute Category: Medical Code(s): R25.3 - Fasciculation (5) Acute exacerbation of chronic obstructive airways disease Current visit: Yes Status: Acute Category: Medical Code(s): J44.1 - Chronic obstructive pulmonary disease with (acute) exacerbation (6) Bronchitis Current visit: Yes Status: Acute Category: Medical Code(s): J40 - Bronchitis, not specified as acute or chronic (7) Renal mass Current visit: Yes Status: Acute Category: Medical Code(s): N28.89 - Other specified disorders of kidney and ureter (8) Atrial fibrillation with RVR Current visit: Yes Status: Acute Category: Medical Code(s): I48.91 - Unspecified atrial fibrillation (9) Acute on chronic renal failure Current visit: Yes Status: Acute Category: Medical Code(s): N17.9 - Acute kidney failure, unspecified; N18.9 - Chronic kidney disease, unspecified - Assessment and plan all Dx Assessment and Plan for all problems:: Creatinine is improving, noted at 2.77 this morning. Rate remains controlled. Out of bed to chair today on nasal cannula. Aggressive pulmonary toilet. D/C steroids as air movement has improved and it is likely the cause of his leukocytosis. PT consult. Plan for MRI abdomen later this afternoon if patient patient is able to remain off bi-pap through the morning.
--- NOTE | 2018-05-19 15:59 | Cardiology Report ---
PROCEDURE: 2-D M-mode and color Doppler study INDICATIONS FOR THE TEST: Chest pain COPD Heart Murmur Tobacco Smoking Palpitations Fatigue Syncope Edema Hypertension+Diabetes Mellitus+ Rheumatic Fever SOB LOGAN Obesity+Hyperlipidemia+ Family History HD Additional History RENAL MASS, CM, CHF, LIMITED IMAGES D/T POOR ULTRASOUND WINDOWS HEIGHT: 72 WEIGHT:247 GENDER: Male B/P:106/63 2-D/M-MODE INTERPRETATION: 2-D MEASUREMENTS OBSERVED VALUES IN CMS Right Ventricular Dimension (RVDd) Interventricular Septum (Thickness)(IVsd) Left Ventricular Internal Dimensions(LVIDd) Left Ventricular Posterior Wall (Thickness)(LVPWd) Aortic Root 3.6 Aortic Cusp Separation 2.1 Left Atrial Dimensions (LAD) 4.8 2D 1. Technically difficult study because of the patient's factor and poor acoustic windows. 2. Left atrium is mildly enlarged, left ventricle is normal size, mild concentric left ventricular hypertrophy, visually estimated ejection fraction 55% with no regional wall motion abnormality. 3. The right atrium and right ventricle are mildly enlarged with normal contractility. 4. The aortic valve is minimally thickened fibrosed. 5. The mitral and tricuspid valve leaflets are minimally thickened. 6. The pulmonic valve is poorly visualized. 7. Small pericardial effusion noted. DOPPLER INTERROGATION: Doppler interrogation of the aortic, mitral and tricuspid valvular presence of mild mitral and tricuspid regurgitation, tricuspid regurgitation jet velocity is insufficient for calculation of the right ventricular systolic pressure, diastolic parameters are inconclusive. CONCLUSION: 1. Technically difficult study because of patient's factor and poor acoustic windows 2. Biatrial enlargement, normal left ventricular size, mild concentric left ventricular hypertrophy, visually estimated ejection fraction of 55% with no regional wall motion abnormality. Diastolic parameters are inconclusive. 3. Mildly enlarged right ventricle with normal contractility. 4. Mild mitral and tricuspid regurgitation 5. Small pericardial effusion noted.
[2018-05-20 06:27] LABS: Basophils % 0.1 % (0.1-2.0); Eosinophils # 0.2 K/mm3 (0.0-0.4); Eosinophils % 1.1 % (0.1-12.0); Hematocrit 41.7 % (42.0-52.0); Hemoglobin 12.9 g/dL (14.1-18.0); Lymphocytes # 0.3 K/mm3 (0.7-4.5); Lymphocytes % 2.3 K/mm3 (10-50); Mean Corpuscular Hemoglobin 29.2 pg (27.0-31.2); Mean Corpuscular Volume 94.2 fl (80-94); Mean Platelet Volume 7.3 fl (7.4-10.4); Monocytes # 0.9 K/mm3 (0.1-1.0); Monocytes % 5.9 % (1.7-9.3); Neutrophils # 13.5 K/mm3 (1.8-7.8); Neutrophils % 90.6 % (37.0-80.0); Platelet Count 279 K/mm3 (142-424); Red Blood Count 4.42 M/mm3 (4.60-6.20); Red Cell Distribution Width 17.4 % (11.5-17.5); White Blood Count 14.8 K/mm3 (4.8-10.8)
[2018-05-20 06:35] LABS: Calcium 8.3 mg/dL (8.5-10.1)
[2018-05-20 07:15] LABS: Lymphocytes % 2 % (10-50); Monocytes % 10 % (2-9); Neutrophils % 88 % (42-76); RBC Morphology Normal; Total Cells Counted 100
--- NOTE | 2018-05-20 08:41 | Progress Note ---
Internal Medicine - PN: Subj *Date: 05/20/18 *Time: 08:30 Interval history: Used BiPAP overnight. Continues to not want to be very mobile and ambulate. No acute events. Creatinine improved morning. Ordering regular diet, heart rate controlled at goal less than 110, afebrile, normotensive Exam Vital signs and Labs for Last 24 Hours: Temp Pulse Resp BP Pulse Ox 98.2 F 107 H 22 129/70 94 L 05/20/18 07:48 05/20/18 07:48 05/20/18 07:48 05/20/18 07:48 05/20/18 07:48 Laboratory Results - last 24 hr 05/19/18 18:02: POC Glucose 140 H 05/19/18 20:32: POC Glucose 200 H 05/20/18 05:20: POC Glucose 126 H 05/20/18 06:18: WBC 14.8 H, RBC 4.42 L, Hgb 12.9 L, Hct 41.7 L, MCV 94.2 H, MCH 29.2, MCHC 31.0 L, RDW 17.4, Plt Count 279, MPV 7.3 L, Neut % (Auto) 90.6 H, Lymph % (Auto) 2.3 L, [place] % (Auto) 5.9, Eos % (Auto) 1.1, Baso % (Auto) 0.1, Neut # (Auto) 13.5 H, Lymph # (Auto) 0.3 L, [place] # (Auto) 0.9, Eos # (Auto) 0.2, Baso # (Auto) 0.0, Total Counted 100, Neutrophils % (Manual) 88 H, Lymphocytes % (Manual) 2 L, Monocytes % (Manual) 10 H, Platelet Estimate Normal, RBC Morpho logy Normal 05/20/18 06:18: Sodium 146 H, Potassium 4.0, Chloride 108 H, Carbon Dioxide 33 H , Anion Gap 9.0, BUN 73 H, Creatinine 2.28 H, Estimated Creat Clear 51, Estimated GFR 29 L, Est GFR ( Amer) 35 L D, Glucose 118 H, Calcium 8.3 L I & O for Last 24 hours: Intake & Output 05/17/18 05/18/18 05/19/18 05/20/18 23:59 23:59 23:59 23:59 Intake Total 840 / 840 1455 / 1455 1742 / 1742 1455 / 1455 Output Total 900 / 900 1999 / 1999 600 / 600 Balance 840 / 840 555 / 555 -258 / -258 855 / 855 Weight 112.066 kg 115.893 kg 115.326 kg 113.058 kg Assessment and Plan (1) Acute on chronic respiratory failure with hypoxia Current visit: Yes Status: Acute Category: Medical Code(s): J96.21 - Acute and chronic respiratory failure with hypoxia (2) Diabetes mellitus type 2 in nonobese Current visit: Yes Status: Acute Category: Medical Code(s): E11.9 - Type 2 diabetes mellitus without complications (3) Anxiety disorder Current visit: Yes Status: Acute Category: Medical Code(s): F41.9 - Anxiety disorder, unspecified (4) Fasciculation of lower extremity Current visit: Yes Status: Acute Category: Medical Code(s): R25.3 - Fasciculation (5) Acute exacerbation of chronic obstructive airways disease Current visit: Yes Status: Acute Category: Medical Code(s): J44.1 - Chronic obstructive pulmonary disease with (acute) exacerbation (6) Bronchitis Current visit: Yes Status: Acute Category: Medical Code(s): J40 - Bronchitis, not specified as acute or chronic (7) Renal mass Current visit: Yes Status: Acute Category: Medical Code(s): N28.89 - Other specified disorders of kidney and ureter (8) Atrial fibrillation with RVR Current visit: Yes Status: Acute Category: Medical Code(s): I48.91 - Unspecified atrial fibrillation (9) Acute on chronic renal failure Current visit: Yes Status: Acute Category: Medical Code(s): N17.9 - Acute kidney failure, unspecified; N18.9 - Chronic kidney disease, unspecified
--- NOTE | 2018-05-20 10:56 | Discharge Summary ---
General - General Admission date:: 05/17/18 Discharge date: 05/20/18 HPI HPI: 67-year-old white male with long history of COPD that is oxygen requiring, as well as chronic systolic and diastolic congestive heart failure who is disabled from his disease and uses chronic CPAP at night because of chronic respiratory failure. He states that he awoke in the middle of the night and was very dyspneic, went to the bathroom and fell down. His found him with blood coming from his arms "I was agitated and scratched myself." He states that he still very "stressed" and points to his leg where he has some muscle fasciculations in the right calf that are currently ongoing. Reports that he has been increasingly afflicted with shortness of air and cough, reports that "I do not know what is wrong with me." He was brought to the emergency department, where workup showed evidence of COPD exacerbation with worsening hypercapnia-acute on chronic-he was admitted for COPD exacerbation, enhanced pulmonary toilet and further diagnostic testing. Hospital Course Hospital Course: Patient admitted for acute on chronic hypercarbic and hypoxemic respiratory failure. Found to have COPD exacerbation. Imaging performed during admission looking for pulmonary pathology did not show significant pneumonia or pulmonary logic findings however did find large renal mass necessitating further workup. Treated with course of antibiotics and steroids for COPD exacerbation. Patient underwent CT image and MRI imaging of abdominal mass. Urology was consulted for further recommendations. Plan to follow up in outpatient setting. Additionally, during admission patient developed atrial fibrillation with RVR necessitating treatment. He was initiated on diltiazem with goal rate control achieved with 30 mg every 6 hours of short acting. On day of just discharge transition to 120 mg daily extended for ease of dosing. Patient was not initiated on anticoagulant therapy as he was having bleeding from his renal mass , is a high risk for additional bleeding due to falls, and had worsening renal function due to TARN during admission complicating anticoagulation. Currently continuing aspirin therapy only even in setting of elevated CHADsVASc and HASBled scores. Patient returned to baseline respiratory function and oxygen requirement. Tolerating regular diet. Ambulating at baseline. Assessed by physical therapy. Plan to discharge home with home health for physical therapy, occupational therapy, and residential with plan for repeat labs in 3 days and follow-up in 4. Medically stable for discharge home with home health. Objective Vital signs: Temp Pulse Resp BP Pulse Ox 98.2 F 115 H 22 129/70 96 05/20/18 07:48 05/20/18 10:20 05/20/18 07:48 05/20/18 07:48 05/20/18 10:20 mild distress, morbidly obese, chronically ill appearing, disheveled - *Routine HEENT Exam Head: Present: normocephalic, atraumatic Eye: Present: EOMI, PERRL ENT: Present: mucous membranes moist. Absent: dentition normal Comments: Nasal cannula in place - *Routine Neck Exam Present: supple, full ROM. Absent: JVD, carotid bruit, lymphadenopathy, thyromegaly - *Routine Respiratory Exam Present: CTA bilaterally, prolonged expiratory phase, distant breath sounds, diminished air movement. Absent: rales, wheezes, crackles - *Routine Cardiovascular Exam Present: Normal S1, Normal S2, irregularly irregular. Absent: murmur, gallop - *Routine Abdominal Exam Present: soft, normoactive bowel sounds. Absent: tenderness - *Routine Rectal Exam Patient deferred: visual exam - *Routine Exam Patient deferred: penile exam - *Routine Extremities Exam Present: edema (Trace). Absent: cyanosis, clubbing - *Routine Skin Exam Present: intact. Absent: cyanosis, erythema - *Routine Neurological Exam Present: alert, oriented X3, CN II-XII intact - Routine Psychiatric Exam Present: normal affect, cooperative, unable to assess. Absent: good insight, good judgment Results Labs on day of discharge: Labs from last 24 hours 05/20/18 05/20/18 05/20/18 06:18 06:18 05:20 WBC 14.8 H RBC 4.42 L Hgb 12.9 L Hct 41.7 L MCV 94.2 H MCH 29.2 MCHC 31.0 L RDW 17.4 Plt Count 279 MPV 7.3 L Neut % (Auto) 90.6 H Lymph % (Auto) 2.3 L [place] % (Auto) 5.9 Eos % (Auto) 1.1 Baso % (Auto) 0.1 Neut # (Auto) 13.5 H Lymph # (Auto) 0.3 L [place] # (Auto) 0.9 Eos # (Auto) 0.2 Baso # (Auto) 0.0 Total Counted 100 Neutrophils % (Manual) 88 H Lymphocytes % (Manual) 2 L Monocytes % (Manual) 10 H Platelet Estimate Normal RBC Morphology Normal Sodium 146 H Potassium 4.0 Chloride 108 H Carbon Dioxide 33 H Anion Gap 9.0 BUN 73 H Creatinine 2.28 H Estimated Creat Clear 51 Estimated GFR 29 L Est GFR ( Amer) 35 L D Glucose 118 H POC Glucose 126 H Calcium 8.3 L 05/19/18 05/19/18 20:32 18:02 WBC RBC Hgb Hct MCV MCH MCHC RDW Plt Count MPV Neut % (Auto) Lymph % (Auto) [place] % (Auto) Eos % (Auto) Baso % (Auto) Neut # (Auto) Lymph # (Auto) [place] # (Auto) Eos # (Auto) Baso # (Auto) Total Counted Neutrophils % (Manual) Lymphocytes % (Manual) Monocytes % (Manual) Platelet Estimate RBC Morphology Sodium Potassium Chloride Carbon Dioxide Anion Gap BUN Creatinine Estimated Creat Clear Estimated GFR Est GFR ( Amer) Glucose POC Glucose 200 H 140 H Calcium Preliminary micro results at discharge 05/16/18 00:56 Blood Culture - Preliminary Blood NO GROWTH AFTER 48 HOURS 05/16/18 00:56 Blood Culture - Preliminary Blood NO GROWTH AFTER 48 HOURS DS: Diagnosis - Discharge Diagnosis (1) Acute on chronic respiratory failure with hypoxia Status: Acute Problem details: Due to renal impairment, finished antibiotics during admission, continue steroids for additional day (2) Diabetes mellitus type 2 in nonobese Status: Chronic Problem details: Resume home regimen at discharge (3) Anxiety disorder Status: Chronic Problem details: Continue home medications at discharge (4) Fasciculation of lower extremity Status: Chronic (5) Acute exacerbation of chronic obstructive airways disease Status: Acute (6) Bronchitis Status: Chronic (7) Renal mass Status: Acute Problem details: The diagnosis, follow-up with Dr. Brooks (8) Atrial fibrillation with RVR Status: Acute Problem details: Continue diltiazem transition to long-acting 120 mg daily -Reevaluate anticoagulation during follow-up (9) Acute on chronic renal failure Status: Acute Problem details: Labs in 3 days, avoid nephrotoxic's Discharge Plan - Patient Discharge Instructions ACTIVITY: Ambulate as tolerated DIET: continue same diet - Follow up Plan Follow up with: Dami Finch MD [Primary Care Provider] - 1 week Daniel Brooks MD [Staff Physician] - 2 weeks Disposition: Home Health Service Home Medications: Home Medications Medication Instructions Recorded Confirmed Type Aspirin [Aspirin 81mg EC Tab] 81 mg PO DAILY 05/16/18 05/16/18 History Furosemide [Furosemide 40MG tAB] 40 mg PO DAILY 05/16/18 05/16/18 History Lisinopril [Lisinopril 10mg Tab] 10 mg PO DAILY 05/16/18 05/16/18 History Metformin HCl [Glucophage] 1,000 mg PO BID 05/16/18 05/16/18 History Verapamil HCl [Calan SR 120mg 120 mg PO DAILY 05/16/18 05/16/18 History tablet] Prescriptions/Medication Reconciliation: New Tamsulosin HCl [Flomax 0.4mg capsule] 0.4 mg PO DAILY 30 Days #30 cap.er.24h LORazepam [Ativan 0.5mg tablet] 0.5 mg PO TIDP PRN tablet PRN Reason: Anxiety Pantoprazole Sodium [Protonix 40mg tablet] 40 mg PO HS tablet. predniSONE [Prednisone 20mg Tab] 40 mg PO DAILY 1 Days #2 tab dilTIAZem HCl [Diltiazem 24Hr ER] 120 mg PO DAILY 30 Days #30 cap.er.24h Ipratropium/Albuterol Sulfate [Duoneb 3mL neb] 3 ml QIDRT ampul.neb Continue Verapamil HCl [Calan SR 120mg tablet] 120 mg PO DAILY Metformin HCl [Glucophage] 1,000 mg PO BID Lisinopril [Lisinopril 10mg Tab] 10 mg PO DAILY Aspirin [Aspirin 81mg EC Tab] 81 mg PO DAILY Discontinued Furosemide [Furosemide 40MG tAB] 40 mg PO DAILY
== END 2018-05-20 18:00 | disposition home health service (06) ==
LOC: 2ND 00:39 → ER 00:39 → 2ND 03:04
PROVIDERS: ADMIT Internal Medicine Adolescent Medicine; ATTEND Internal Medicine Adolescent Medicine

== ENCOUNTER 2018-05-21 07:50 | Inpatient (IN) ==
--- NOTE | 2018-05-21 08:08 | Emergency Department Note ---
ED Disposition Clinical Impression: Atrial fibrillation with rapid ventricular response, Chronic kidney disease, stage III (moderate) Disposition: Admitted as Observation Condition on Discharge: Fair Additional Instructions: I discussed this patient with Dr. Malagon who is covering for Dr. Brooks he is being admitted to continue all of his home meds except for diltiazem and verapamil and continue his Cardizem drip Referrals: Dami Finch MD [Primary Care Provider] - Time of Disposition: 11:57 - Critical Care Critical Care Time: No Attestation: On 05/21/18, the high probability of a clinically significant, sudden or life threatening deterioration of the following system(s) required my full and direct attention, intervention and personal management. The time I documented below is in addition to time spent performing reported procedures but includes the following listed in this critical care notation. Medical Decision Making - Medical Records Medical records reviewed: Yes: I reviewed the patient's medical records. - Carlos Inquiry Pt receiving controlled substance: No Carlos was queried for this patient: No Vital Signs: 05/21/18 07:51 05/21/18 08:14 05/21/18 08:22 Temperature 97.1 F L Temperature Source Temporal Artery Scan Pulse Rate [Apical] 130 H 140 H 130 H Respiratory Rate 24 24 26 H Blood Pressure [Left Arm] 115/58 115/58 Blood Pressure [Right Arm] 120/91 Blood Pressure Mean [Left Arm] 77 77 Blood Pressure Mean [Right Arm] 100 Blood Pressure Source [Left Arm] Automatic Cuff Automatic Cuff Blood Pressure Source [Right Arm] Automatic Cuff Blood Pressure Position [Left Arm] Sitting Sitting Blood Pressure Position [Right Arm] Sitting 02 Sat by Pulse Oximetry 100 96 94 L Oxygen Delivery Method Non-Rebreather BiPAP BiPAP Oxygen Flow Rate (LPM) 05/21/18 08:38 05/21/18 09:01 05/21/18 09:08 Temperature Temperature Source Pulse Rate [Apical] 121 H 134 H 115 H Respiratory Rate 28 H 26 H 26 H Blood Pressure [Left Arm] 121/77 129/57 106/72 Blood Pressure [Right Arm] Blood Pressure Mean [Left Arm] 91 81 83 Blood Pressure Mean [Right Arm] Blood Pressure Source [Left Arm] Automatic Cuff Automatic Cuff Automatic Cuff Blood Pressure Source [Right Arm] Blood Pressure Position [Left Arm] Sitting Sitting Sitting Blood Pressure Position [Right Arm] 02 Sat by Pulse Oximetry 94 L 96 96 Oxygen Delivery Method BiPAP BiPAP BiPAP Oxygen Flow Rate (LPM) 05/21/18 09:35 05/21/18 10:07 05/21/18 10:26 Temperature Temperature Source Pulse Rate [Apical] 117 H 109 H 111 H Respiratory Rate 24 Blood Pressure [Left Arm] Blood Pressure [Right Arm] 114/67 141/78 116/79 Blood Pressure Mean [Left Arm] Blood Pressure Mean [Right Arm] 82 99 91 Blood Pressure Source [Left Arm] Blood Pressure Source [Right Arm] Automatic Cuff Automatic Cuff Automatic Cuff Blood Pressure Position [Left Arm] Blood Pressure Position [Right Arm] Sitting Sitting Sitting 02 Sat by Pulse Oximetry 96 Oxygen Delivery Method BiPAP Oxygen Flow Rate (LPM) 05/21/18 10:30 05/21/18 11:00 05/21/18 11:30 Temperature Temperature Source Pulse Rate [Apical] 107 H 113 H 114 H Respiratory Rate 24 26 H 24 Blood Pressure [Left Arm] Blood Pressure [Right Arm] 122/72 136/69 126/70 Blood Pressure Mean [Left Arm] Blood Pressure Mean [Right Arm] 88 91 88 Blood Pressure Source [Left Arm] Blood Pressure Source [Right Arm] Automatic Cuff Automatic Cuff Automatic Cuff Blood Pressure Position [Left Arm] Blood Pressure Position [Right Arm] Sitting Sitting Sitting 02 Sat by Pulse Oximetry 96 97 97 Oxygen Delivery Method BiPAP Room Air BiPAP Oxygen Flow Rate (LPM) 05/21/18 11:50 Temperature Temperature Source Pulse Rate [Apical] 115 H Respiratory Rate 26 H Blood Pressure [Left Arm] Blood Pressure [Right Arm] 130/70 Blood Pressure Mean [Left Arm] Blood Pressure Mean [Right Arm] 90 Blood Pressure Source [Left Arm] Blood Pressure Source [Right Arm] Automatic Cuff Blood Pressure Position [Left Arm] Blood Pressure Position [Right Arm] Sitting 02 Sat by Pulse Oximetry 97 Oxygen Delivery Method BiPAP Oxygen Flow Rate (LPM) - Lab Data Lab results reviewed: Yes: I reviewed the patient's lab results. Lab Results 05/21/18 07:58: ABG pH 7.42 05/21/18 08:07: WBC 14.6 H, RBC 4.82, Hgb 13.9 L, Hct 46.0, MCV 95.3 H, MCH 28.8, MCHC 30.3 L, RDW 17.5, Plt Count 273, MPV 7.3 L, Neut % (Auto) 90.9 H, Lymph % (Auto) 1.9 L, [place] % (Auto) 6.4, Eos % (Auto) 0.7, Baso % (Auto) 0.0 L, Neut # (Auto) 13.3 H, Lymph # (Auto) 0.3 L, [place] # (Auto) 0.9, Eos # (Auto) 0.1, Baso # (Auto) 0.0, Total Counted 100, Neutrophils % (Manual) 97 H, Lymphocytes % (Manual) 3 L, Platelet Estimate Normal, RBC Morphology Normal 05/21/18 08:07: Sodium 147 H, Potassium 4.3, Chloride 111 H, Carbon Dioxide 32, Anion Gap 8.3, BUN 65 H, Creatinine 2.36 H, Estimated Creat Clear 42, Estimated GFR 28 L, Est GFR ( Amer) 34 L, Glucose 107 H, Calcium 8.3 L, Total Bilirubin 0.6, AST 38 H, ALT 30 D, Alkaline Phosphatase 82, Troponin I 0.04, Total Protein 6.5, Albumin 3.0 L, Globulin 3.5 H, Albumin/Globulin Ratio 0.9 L 05/21/18 08:07: Lactate 0.6 05/21/18 08:07: D-Dimer 409 H* 05/21/18 08:07: B-Natriuretic Peptide 117 H 05/21/18 11:27: Urine Color Yellow, Urine Appearance Clear, Urine pH 6.0, Ur Specific [place] 1.010, Urine Protein Negative, Urine Glucose (UA) Negative, Urine Ketones Negative, Urine Blood 1+, Urine Nitrate Negative, Urine Bilirubin Negative, Urine Urobilinogen 0.2, Ur Leukocyte Esterase Negative, Urine RBC 3-5, Urine WBC Occasional, Ur Squamous Epith Cells None, Urine Bacteria Trace Result diagrams: 05/21/18 08:07 05/21/18 08:07 Orders (Tests/Meds): ED MEDICATIONS Generic Name Dose Route Start Last Admin Trade Name Freq PRN Reason Stop Dose Admin Diltiazem HCl 100 mg/ Sodium 100 mls @ 5 mls/hr 05/21/18 08:45 05/21/18 09:01 Chloride IV 06/20/18 08:44 5 mls/hr .Q20H OFELIA Administration Protocol Sodium Chloride 1,000 mls @ 150 mls/hr 05/21/18 10:00 Sod Chlor 0.9% 1000ml Bag IV 05/21/18 16:39 .Q6H40M OFELIA Discontinued Medications Generic Name Dose Route Start Last Admin Trade Name Alverto PRN Reason Stop Dose Admin Diltiazem HCl 20 mg 05/21/18 08:10 05/21/18 08:19 Cardizem 100mg Adv IV 05/21/18 08:11 20 mg ONCE ONE Administration Sodium Chloride 1,000 mls @ 999 mls/hr 05/21/18 09:15 05/21/18 09:22 Sod Chlor 0.9% 1000ml Bag IV 05/21/18 10:15 999 mls/hr .Q1H1M OFELIA Administration ORDERS Category Date Time Status Urinalysis and Microscopic Stat Lab 05/21/18 11:27 Ordered Blood Culture Stat Micro 05/21/18 08:07 Ordered - Radiology Data #1 Image(s): Chest Image Reviewed: Yes I reviewed the patient's radiology results, Yes I discussed the image results w/the radiologist, Yes I have reviewed radiologist's interpretation Preliminary Findings: Normal/NAD - ECG Data Tracing #1 I reviewed this ECG and interpreted as documented below: Atrial fibrillation with rapid ventricular response with rate of 140 Normal Sinus Rhythm: No (Atrial fibrillation long-standing but now with rapid ventricular response) Arrhythmias present: afib/aflutter Conduction abnormalities present: other (Atrial Fibrillation with RVR) Resp/SOB HPI - General Chief Complaint: Shortness of Breath/Dyspnea Stated Complaint: SOA Time Seen by Provider: 05/21/18 08:00 Mode of Arrival: EMS Limitations: No Limitations Description of Symptoms (Recalled from ER Triage Doc. by RN): Per report from EMS pt got up in the middle of the night and began feeling SOA, pt reports he wears CPAP at home at night. 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 He has a history of chronic atrial fibrillation but the only anticoagulant he is taking at this point in time is aspirin. The family says that he wants placed on subcu heparin while in the hospital. He is also been using a CPAP at home with only 36% oxygen and over the last couple of days he has become more short of breath got up in the middle of the night last night with shortness of breath and having some chest pain and leg pain he was brought to the emergency room by EMS on a CPAP with 10 L of oxygen and was converted to a 100% nonrebreather when he got to the emergency room he is currently on his CPAP with 30% oxygen and is satting 94-95%. He is also in atrial fibrillation with rapid ventricular response with a heart rate up around 140 times. He is scheduled to see Dr. Brooks to discuss treatment of this right renal tumor later this coming week. He came back to the emergency room today because he woke up in the middle the night feeling more short of breath and came back for further evaluation MD Complaint: shortness of breath, chest pain Onset (ago): hour(s) Context: recent illness Severity: moderate - Related Data Home Medications Medication Instructions Recorded Confirmed Lisinopril [Lisinopril 10mg Tab] 10 mg PO DAILY 05/16/18 05/21/18 Metformin HCl [Glucophage] 1,000 mg PO BID 05/16/18 05/21/18 Verapamil HCl [Calan SR 120mg 180 mg PO DAILY 05/16/18 05/21/18 tablet] Furosemide [Furosemide 40MG tAB] 40 mg PO DAILY 05/21/18 05/21/18 Tamsulosin HCl [Flomax 0.4mg 0.4 mg PO DAILY 05/21/18 05/21/18 capsule] dilTIAZem HCl [Diltiazem 24Hr ER] 120 mg PO DAILY 05/21/18 05/21/18 predniSONE [Prednisone 20mg 40 mg PO DAILY 05/21/18 05/21/18 Tab] Allergies Allergy/AdvReac Type Severity Reaction Status Date / Time morphine Allergy Unknown hallucinati Verified 05/21/18 08:00 ons [facility] History I have reviewed the patient's past medical history: Yes Medical History: Reports:: Cancer (skin cancer - neck and nose), Cardiomyopathy, Congestive Heart Failure (Acute on chronic systolic and diastolic failure), Chronic Obstructive Pulmonary Disease (COPD) (Oxygen requiring, uses CPAP/BiPAP at night), Diabetes Mellitus Type 2, Hyperlipidemia, Hypertension Denies:: Internal Pacemaker, MRSA Laterality Cases: Left: Arthroscopy Shoulder Other Surgeries: Yes: Cancer Surgery (skin removal), Skin Cancer Excision. No: Pacemaker Amputation: No Fractures: Yes - Social History Smoking Status: Former smoker Tobacco Type: cigarettes # Packs/Day (cigarettes): 1 #Yrs smoked (if former smoker): 47 Alcohol Intake: former Alcohol Intake Frequency:: other Occupational Status: retired Housing: house Household Members: spouse, children Family Hx:: Unable to obtain ROS Obtained: Yes All systems reviewed & no additional complaints - Constitutional Constitutional: Reports system reviewed and no additional complaints, except as docu, Reports as per HPI - Cardiovascular Cardiovascular: Reports system reviewed and no additional complaints, except as docu, Reports as per HPI - Respiratory Respiratory: Yes system reviewed and no additional complaints, except as docu, Yes as per HPI - Neurologic Neurologic: Reports system reviewed and no additional complaints, except as docu, Reports as per HPI Physical Exam - General General appearance: alert Comment: Patient does appear to be in some respiratory distress but his O2 sats are 94- 95% on 30% CPAP - Head Head exam: atraumatic - Eye Eye exam: Present: normal appearance - ENT ENT exam: Present: normal exam - Chest Chest inspection: Present: normal inspection - Respiratory Respiratory exam: Present: wheezes - Cardiovascular Cardiovascular exam: Present: tachycardia, irregular rhythm - Abdominal Exam Abdominal exam: Present: soft - Neurological Exam Neurological exam: Present: alert, oriented X3
[2018-05-21 08:23] LABS: Eosinophils # 0.1 K/mm3 (0.0-0.4); Eosinophils % 0.7 % (0.1-12.0); Hemoglobin 13.9 g/dL (14.1-18.0); Lymphocytes # 0.3 K/mm3 (0.7-4.5); Lymphocytes % 1.9 K/mm3 (10-50); Mean Corpuscular HGB Conc 30.3 g/dL (31.8-35.4); Mean Corpuscular Hemoglobin 28.8 pg (27.0-31.2); Mean Corpuscular Volume 95.3 fl (80-94); Mean Platelet Volume 7.3 fl (7.4-10.4); Monocytes # 0.9 K/mm3 (0.1-1.0); Monocytes % 6.4 % (1.7-9.3); Neutrophils # 13.3 K/mm3 (1.8-7.8); Neutrophils % 90.9 % (37.0-80.0); Platelet Count 273 K/mm3 (142-424); Red Blood Count 4.82 M/mm3 (4.60-6.20); Red Cell Distribution Width 17.5 % (11.5-17.5); White Blood Count 14.6 K/mm3 (4.8-10.8)
[2018-05-21 08:37] LABS: Albumin/Globulin Ratio 0.9 (1.1-1.8); Anion Gap 8.3 mEq/L (5-15); Bilirubin,Total 0.6 mg/dL (0.2-1.0); Calcium 8.3 mg/dL (8.5-10.1); Globulin 3.5 gm/dl (1.3-3.2); Potassium 4.3 mmoL/L (3.5-5.1); Total Protein,Serum 6.5 gm/dL (6.4-8.2)
[2018-05-21 08:46] LABS: Lymphocytes % 3 % (10-50); Neutrophils % 97 % (42-76); Total Cells Counted 100
[2018-05-21 08:47] LABS: RBC Morphology Normal
[2018-05-21 11:34] LABS: Microscopic, Urine URINE MICROSCOPIC (MICROSCOPIC)
[2018-05-21 11:35] LABS: Appearance,Urine CLEAR (Clear); Bilirubin,Urine Negative (Negative); Blood, Urine 1+ (Negative); Color,Urine YELLOW (Yellow); Glucose,Urine (UA) Negative (Negative); Ketones,Urine Negative (Negative); Leukocyte Esterase,Urine Negative (Negative); Protein,Urine Negative (Negative); Urobilinogen,Urine 0.2 EU/dl (0.2)
[2018-05-21 11:43] LABS: Bacteria,Urine Trace /lpf; WBC,Urine Occasional #/hpf (0-3)
--- NOTE | 2018-05-21 13:55 | Pharmacy Consult Notes ---
[facility] Pharmacy VTE Monitoring - Patient Demographics Admission date: 05/21/18 Report Date: 05/21/18 Time: 13:54 Allergies/Adverse Reactions: Patient Allergies morphine Allergy (Unknown, Verified 05/21/18 08:00) hallucinations Height: 1.83 m Weight: 97.522 kg Patient Problems: Current Active Problems Atrial fibrillation with RVR (Acute) Chronic kidney disease, stage III (moderate) (Acute) - VTE Risk Labs: VTE Related Lab Results Hgb 13.9 g/dL (14.1-18.0) L 05/21/18 08:07 Hct 46.0 % (42.0-52.0) 05/21/18 08:07 Plt Count 273 K/mm3 (142-424) 05/21/18 08:07 BUN 65 mg/dL (7-18) H 05/21/18 08:07 Creatinine 2.36 mg/dL (0.70-1.30) H 05/21/18 08:07 Estimated Creat Clear 42 mL/min (0-300) 05/21/18 08:07 - Prophylaxis VTE Prophylaxis Ordered?: Yes Types of VTE Prophylaxis: TEDS Knee High Location of Applied Device: Bilateral Lower Extremeties - VTE Diagnosis Confirmed Treatment or plan recommended: Continue Current Treatment
[2018-05-22 06:35] LABS: Eosinophils # 0.2 K/mm3 (0.0-0.4); Eosinophils % 1.7 % (0.1-12.0); Hematocrit 42.9 % (42.0-52.0); Hemoglobin 12.9 g/dL (14.1-18.0); Lymphocytes # 0.3 K/mm3 (0.7-4.5); Lymphocytes % 2.2 K/mm3 (10-50); Mean Corpuscular HGB Conc 30.1 g/dL (31.8-35.4); Mean Corpuscular Volume 96.3 fl (80-94); Mean Platelet Volume 7.7 fl (7.4-10.4); Monocytes # 0.6 K/mm3 (0.1-1.0); Monocytes % 5.2 % (1.7-9.3); Neutrophils # 10.7 K/mm3 (1.8-7.8); Neutrophils % 90.9 % (37.0-80.0); Platelet Count 241 K/mm3 (142-424); Red Blood Count 4.46 M/mm3 (4.60-6.20); Red Cell Distribution Width 17.5 % (11.5-17.5); White Blood Count 11.8 K/mm3 (4.8-10.8)
[2018-05-22 06:42] LABS: INR 1.13 (0.9-1.1); Prothrombin Time 11.6 seconds (9.4-11.8)
[2018-05-22 06:47] LABS: Albumin Level 2.5 gm/dL (3.4-5.0); Albumin/Globulin Ratio 0.7 (1.1-1.8); Anion Gap 11.2 mEq/L (5-15); Bilirubin,Total 0.6 mg/dL (0.2-1.0); Calcium 8.2 mg/dL (8.5-10.1); Globulin 3.5 gm/dl (1.3-3.2); Potassium 4.2 mmoL/L (3.5-5.1)
[2018-05-22 06:50] LABS: Lymphocytes % 2 % (10-50); Monocytes % 6 % (2-9); Neutrophils % 92 % (42-76); RBC Morphology Normal; Total Cells Counted 100
[2018-05-22 07:02] LABS: ABG Base Excess 3.5 mmol/L (-2.4-2.3); ABG HCO3 28.6 mmhg (22.0-26.0); ABG Oxygen Saturation 99 % (90-100); ABG PCO2 49.4 mmhg (35.0-45.0); ABG PH 7.38 mmol/L (7.35-7.45); ABG PO2 139.8 mmhg (80-100); ABG TCO2 30.1 mmhg (23-27)
[2018-05-22 07:05] LABS: Allen's Test Acceptable; Oxygen 34 %
--- NOTE | 2018-05-22 07:22 | History & Physical Report ---
*Admission Date: 05/21/18 *Chief complaint: Shortness of breath *History of present illness: 67-year-old male with recent hospitalization at [facility] discharged May 20 presented to the emergency department on the morning of May 21 with complaints of shortness of breath. Patient was found to be in atrial fibrillation with rapid ventricular response with heart rate reaching the 140s and 150s. He was placed on a Cardizem drip in the emergency department which brought his heart rate down to the low 100s. Patient was admitted on a Cardizem drip. He has medical history of chronic respiratory failure for which he wears CPAP at home at night and is oxygen dependent. He has history of chronic diastolic dysfunction. Echocardiogram performed during last admission showed ejection fraction of 55%. Patient is not a candidate for anticoagulant due to falls and a renal mass which has caused some hematuria. Since admission patient's heart rate has been in the high 90s to low 100s on Cardizem drip. ABG performed on admission s not reveal any acute respiratory failure. Patient was stable throughout the day. This morning nursing staff became concerned as patient seemed a little bit more confused and breathing was slightly labored. He has received Xopenex nebs. Patient himself admits to slight increase in shortness of breath. He denies chest pain. He had mild abdominal pain. He denies fevers or chills. [facility] History I have reviewed the patient's past medical history: Yes Medical History: Reports:: Cancer (skin), Cardiomyopathy, Congestive Heart Failure (Acute on chronic systolic and diastolic failure), Chronic Obstructive Pulmonary Disease (COPD) (Oxygen requiring, uses CPAP/BiPAP at night), Diabetes Mellitus Type 1, Hyperlipidemia, Hypertension Denies:: Diabetes Mellitus Type 2, Internal Pacemaker, MRSA Laterality Cases: Left: Arthroscopy Shoulder Other Surgeries: Yes: Cancer Surgery (skin removal), Cholecystectomy, Skin Cancer Excision. No: Pacemaker Amputation: No Fractures: Yes - *Social History Educational Level: Completed High School Smoking Status: Former smoker Tobacco Type: cigarettes # Packs/Day (cigarettes): 1 #Yrs smoked (if former smoker): 42 Smoking End Date: 09/06/2013 Alcohol Intake: never Alcohol Intake Frequency:: other Occupational Status: retired Housing: house Household Members: spouse, children - Psychiatric History Expresses thoughts of harming self/others: None Suicide Plan Description: No Plan *Family Hx:: Hypertension Review of Systems - Constitutional Reports fatigue, Denies body ache(s), Denies chills, Denies daytime sleepiness - *Cardiovascular Denies chest pain, Denies chest pain at rest - *Respiratory Reports chest congestion, Reports cough, Reports shortness of breath - *Gastrointestinal Reports abdominal pain, Denies belching, Denies bloating, Denies change in bowel habits, Denies change in stools - *Genitourinary Reports blood in urine - *Musculoskeletal Reports muscle weakness - *Neurologic Reports abnormal walking (Requires assistance) Meds Home Medications Medication Instructions Recorded Confirmed Type Lisinopril [Lisinopril 10mg Tab] 10 mg PO DAILY 05/16/18 05/21/18 History Metformin HCl [Glucophage] 1,000 mg PO BID 05/16/18 05/21/18 History Verapamil HCl [Calan SR 120mg 180 mg PO DAILY 05/16/18 05/21/18 History tablet] Furosemide [Furosemide 40MG tAB] 40 mg PO DAILY 05/21/18 05/21/18 History Tamsulosin HCl [Flomax 0.4mg 0.4 mg PO DAILY 05/21/18 05/21/18 History capsule] dilTIAZem HCl [Diltiazem 24Hr ER] 120 mg PO DAILY 05/21/18 05/21/18 History predniSONE [Prednisone 20mg 40 mg PO DAILY 05/21/18 05/21/18 History Tab] Allergies Allergy/AdvReac Type Severity Reaction Status Date / Time morphine Allergy Unknown hallucinati Verified 05/21/18 08:00 ons Exam Vital signs and Labs for Last 24 Hours: Temp Pulse Resp BP Pulse Ox 97.4 F L 96 H 24 162/73 97 05/22/18 05:52 05/22/18 06:49 05/21/18 19:01 05/22/18 06:30 05/22/18 06:49 Laboratory Results - last 24 hr 05/21/18 07:58: ABG pH 7.42 05/21/18 08:07: WBC 14.6 H, RBC 4.82, Hgb 13.9 L, Hct 46.0, MCV 95.3 H, MCH 28.8, MCHC 30.3 L, RDW 17.5, Plt Count 273, MPV 7.3 L, Neut % (Auto) 90.9 H, Lymph % (Auto) 1.9 L, [place] % (Auto) 6.4, Eos % (Auto) 0.7, Baso % (Auto) 0.0 L, Neut # (Auto) 13.3 H, Lymph # (Auto) 0.3 L, [place] # (Auto) 0.9, Eos # (Auto) 0.1, Baso # (Auto) 0.0, Total Counted 100, Neutrophils % (Manual) 97 H, Lymphocytes % (Manual) 3 L, Platelet Estimate Normal, RBC Morphology Normal 05/21/18 08:07: Sodium 147 H, Potassium 4.3, Chloride 111 H, Carbon Dioxide 32, Anion Gap 8.3, BUN 65 H, Creatinine 2.36 H, Estimated Creat Clear 42, Estimated GFR 28 L, Est GFR ( Amer) 34 L, Glucose 107 H, Calcium 8.3 L, Total Bilirubin 0.6, AST 38 H, ALT 30 D, Alkaline Phosphatase 82, Troponin I 0.04, T otal Protein 6.5, Albumin 3.0 L, Globulin 3.5 H, Albumin/Globulin Ratio 0.9 L 05/21/18 08:07: Lactate 0.6 05/21/18 08:07: D-Dimer 409 H* 05/21/18 08:07: B-Natriuretic Peptide 117 H 05/21/18 11:27: Urine Color Yellow, Urine Appearance Clear, Urine pH 6.0, Ur Specific [place] 1.010, Urine Protein Negative, Urine Glucose (UA) Negative, Urine Ketones Negative, Urine Blood 1+, Urine Nitrate Negative, Urine Bilirubin Negative, Urine Urobilinogen 0.2, Ur Leukocyte Esterase Negative, Urine RBC 3-5, Urine WBC Occasional, Ur Squamous Epith Cells None, Urine Bacteria Trace 05/21/18 15:00: Troponin I 0.02 05/21/18 16:41: POC Glucose 115 H 05/21/18 20:38: POC Glucose 95 05/21/18 21:20: Troponin I 0.02 05/22/18 05:49: POC Glucose 117 H 05/22/18 06:15: WBC 11.8 H, RBC 4.46 L, Hgb 12.9 L, Hct 42.9, MCV 96.3 H, MCH 29.0, MCHC 30.1 L, RDW 17.5, Plt Count 241, MPV 7.7, Neut % (Auto) 90.9 H, Lymph % (Auto) 2.2 L, [place] % (Auto) 5.2, Eos % (Auto) 1.7, Baso % (Auto) 0.0 L, Neut # (Auto) 10.7 H, Lymph # (Auto) 0.3 L, [place] # (Auto) 0.6, Eos # (Auto) 0.2, Baso # (Auto) 0.0, Total Counted 100, Neutrophils % (Manual) 92 H, Lymphocytes % (Manual) 2 L, Monocytes % (Manual) 6, Platelet Estimate Normal, RBC Morphology Normal 05/22/18 06:15: PT 11.6, INR 1.13 H 05/22/18 06:15: Sodium 155 H*, Potassium 4.2, Chloride 116 H, Carbon Dioxide 32, Anion Gap 11.2, BUN 52 H, Creatinine 1.59 H D, Estimated Creat Clear 70, Estimated GFR 44 L, Est GFR ( Amer) 53 L D, Glucose 102, Calcium 8.2 L, Phosphorus 4.0, Magnesium 2.4 H, Total Bilirubin 0.6, AST 26 D, ALT 30, Alkaline Phosphatase 67, Total Protein 6.0 L, Albumin 2.5 L D, Globulin 3.5 H, Albumin/Globulin Ratio 0.7 L 05/22/18 06:37: Specimen Source Rt radial, O2 % 34, ABG pH 7.38, ABG pCO2 49.4 H , ABG pO2 139.8 H, ABG HCO3 28.6 H, ABG Total CO2 30.1 H, ABG O2 Saturation 99, ABG Base Excess 3.5 H, Maximiliano Test Acceptable I & O for Last 24 hours: Intake & Output 05/19/18 05/20/18 05/21/18 05/22/18 11:59 11:59 11:59 11:59 Intake Total 340 / 340 Output Total 2400 / 2400 Balance -2059 / -2059 Weight 215 lb 239 lb 4 oz Narrative: Patient was sleeping when I entered the room but awakened easily. He was oriented to person and place but not year. Upon awakening his respiratory rate was noticed automatically increase. HEENT exam revealed intact extraocular movements with reactive pupils. Oropharynx was slightly dry. Neck did not have any carotid bruits or lymphadenopathy. Lungs are distant throughout without rales, rhonchi, wheezes. Heart rate was irregularly irregular. Abdomen is soft and nontender. Extremity exam reveals trace lower extremity edema. Assessment and Plan (1) Atrial fibrillation with RVR Problem details: Continue diltiazem transition to long-acting 120 mg daily -Reevaluate anticoagulation during follow-up Current visit: Yes Status: Acute Category: Medical Code(s): I48.91 - Unspecified atrial fibrillation (2) Hypernatremia Current visit: Yes Status: Acute Category: Medical Code(s): E87.0 - Hyperosmolality and hypernatremia (3) Chronic kidney disease, stage III (moderate) Current visit: Yes Status: Chronic Category: Medical Code(s): N18.3 - Chronic kidney disease, stage 3 (moderate) (4) Renal mass Problem details: The diagnosis, follow-up with Dr. Brooks Current visit: No Status: Acute Category: Medical Code(s): N28.89 - Other specified disorders of kidney and ureter - Assessment and plan all Dx Assessment and Plan for all problems:: Attempt to wean from Cardizem drip today by starting p.o. Cardizem at a dose of 180 mg. We will also add on bisoprolol 5 mg. Start D5 half-normal saline with potassium due to patient's hypernatremia. Repeat BMP in a.m. Patient to use CPAP at night
[2018-05-23 06:01] LABS: Eosinophils # 0.3 K/mm3 (0.0-0.4); Eosinophils % 2.1 % (0.1-12.0); Hematocrit 39.1 % (42.0-52.0); Hemoglobin 11.8 g/dL (14.1-18.0); Lymphocytes # 0.4 K/mm3 (0.7-4.5); Mean Corpuscular HGB Conc 30.2 g/dL (31.8-35.4); Mean Corpuscular Hemoglobin 29.5 pg (27.0-31.2); Mean Corpuscular Volume 97.8 fl (80-94); Mean Platelet Volume 7.4 fl (7.4-10.4); Monocytes # 0.9 K/mm3 (0.1-1.0); Monocytes % 6.6 % (1.7-9.3); Neutrophils # 11.4 K/mm3 (1.8-7.8); Neutrophils % 88.2 % (37.0-80.0); Platelet Count 232 K/mm3 (142-424); Red Cell Distribution Width 17.1 % (11.5-17.5)
[2018-05-23 06:17] LABS: Anion Gap 7.1 mEq/L (5-15); Calcium 8.2 mg/dL (8.5-10.1); Potassium 4.1 mmoL/L (3.5-5.1)
[2018-05-23 07:46] LABS: Eosinophils % 1 % (0-3); Lymphocytes % 3 % (10-50); Monocytes % 7 % (2-9); Neutrophils % 89 % (42-76); Total Cells Counted 100
[2018-05-23 07:48] LABS: Stomatocytes 2+
--- NOTE | 2018-05-23 13:43 | Progress Note ---
Internal Medicine - PN: Subj *Date: 05/23/18 *Time: 13:44 Interval history: Overnight patient remained on nasal cannula oxygen, Polo catheter was removed this morning the patient has been able to urinate. Patient remains unconcerned/disoriented about his current medical condition. I spoke with 1 of his daughters this morning. Exam Vital signs and Labs for Last 24 Hours: Temp Pulse Resp BP Pulse Ox 98.2 F 90 18 98/69 97 05/23/18 11:44 05/23/18 13:18 05/23/18 11:44 05/23/18 11:44 05/23/18 11:44 Laboratory Results - last 24 hr 05/22/18 16:36: POC Glucose 170 H 05/22/18 21:15: POC Glucose 163 H 05/23/18 05:45: POC Glucose 121 H 05/23/18 05:50: WBC 13.0 H, RBC 4.00 L, Hgb 11.8 L, Hct 39.1 L, MCV 97.8 H, MCH 29.5, MCHC 30.2 L, RDW 17.1, Plt Count 232, MPV 7.4, Neut % (Auto) 88.2 H, Lymph % (Auto) 3.0 L, [place] % (Auto) 6.6, Eos % (Auto) 2.1, Baso % (Auto) 0.0 L, Neut # (Auto) 11.4 H, Lymph # (Auto) 0.4 L, [place] # (Auto) 0.9, Eos # (Auto) 0.3, Baso # (Auto) 0.0, Total Counted 100, Neutrophils % (Manual) 89 H, Lymphocytes % (Manual) 3 L, Monocytes % (Manual) 7, Eosinophils % (Manual) 1, Platelet Estimate Normal, Poikilocytosis 2+, Stomatocytes 2+ 05/23/18 05:50: Sodium 154 H*, Potassium 4.1, Chloride 115 H, Carbon Dioxide 36 H, Anion Gap 7.1, BUN 39 H, Creatinine 1.46 H, Estimated Creat Clear 77, Estimated GFR 48 L, Est GFR ( Amer) 58 L, Glucose 134 H D, Calcium 8.2 L 05/23/18 11:07: POC Glucose 134 H I & O for Last 24 hours: Intake & Output 05/21/18 05/22/18 05/23/18 05/24/18 11:59 11:59 11:59 11:59 Intake Total 340 / 340 2615 / 2615 Output Total 2400 / 2400 5550 / 5550 Balance -2060 / -206 -2935 / -2935 Weight 215 lb 239 lb 4 oz 241 lb 5 oz Microbiology Reports for the Last 24 Hours: Microbiology 05/21/18 08:07 Blood Blood Culture - Preliminary NO GROWTH AFTER 48 HOURS 05/21/18 08:07 Blood Blood Culture - Preliminary NO GROWTH AFTER 48 HOURS Narrative: Patient will follow commands but unable/unwilling to give much of a history or to report any pain issues. Lungs have rhonchi in both lung ford. Poor air movement. Heart rate regular. He has no edema. Polo catheter is been removed. Abdomen is protuberant. Pain noted in abdomen diffusely with exam. Assessment and Plan (1) Atrial fibrillation with RVR Problem details: Continue diltiazem transition to long-acting 120 mg daily -Reevaluate anticoagulation during follow-up Current visit: Yes Status: Acute Category: Medical Code(s): I48.91 - Unspecified atrial fibrillation (2) Hypernatremia Current visit: Yes Status: Acute Category: Medical Code(s): E87.0 - Hyperosmolality and hypernatremia (3) Chronic kidney disease, stage III (moderate) Current visit: Yes Status: Chronic Category: Medical Code(s): N18.3 - Chronic kidney disease, stage 3 (moderate) (4) Renal mass Problem details: The diagnosis, follow-up with Dr. Brooks Current visit: No Status: Acute Category: Medical Code(s): N28.89 - Other specified disorders of kidney and ureter - Assessment and plan all Dx Assessment and Plan for all problems:: Extremely sick man with multiple medical problems and the ominous presence of a right renal mass. Currently he is unable to tolerate workup/biopsy of the renal mass. Currently unable to tolerate blood thinners. Currently oxygenation is stable but I do not think he would be able to go home without 24/nursing care given his significant instability, confusion and other medical problems. I discussed hospice care with family and they will think about this.
[2018-05-23 18:56] LABS: Eosinophils # 0.3 K/mm3 (0.0-0.4); Eosinophils % 1.8 % (0.1-12.0); Hematocrit 41.2 % (42.0-52.0); Hemoglobin 12.4 g/dL (14.1-18.0); Lymphocytes # 0.4 K/mm3 (0.7-4.5); Lymphocytes % 2.5 K/mm3 (10-50); Mean Corpuscular Volume 96.8 fl (80-94); Mean Platelet Volume 7.5 fl (7.4-10.4); Monocytes # 1.1 K/mm3 (0.1-1.0); Monocytes % 7.9 % (1.7-9.3); Neutrophils # 12.7 K/mm3 (1.8-7.8); Neutrophils % 87.7 % (37.0-80.0); Platelet Count 241 K/mm3 (142-424); Red Blood Count 4.25 M/mm3 (4.60-6.20); Red Cell Distribution Width 17.4 % (11.5-17.5); White Blood Count 14.5 K/mm3 (4.8-10.8)
[2018-05-23 19:02] LABS: Anion Gap 7.2 mEq/L (5-15); Potassium 4.2 mmoL/L (3.5-5.1)
[2018-05-23 19:10] LABS: Eosinophils % 1 % (0-3); Lymphocytes % 1 % (10-50); Monocytes % 7 % (2-9); Neutrophils % 91 % (42-76); RBC Morphology Normal; Total Cells Counted 100
--- NOTE | 2018-05-24 07:33 | Progress Note ---
Internal Medicine - PN: Subj *Date: 05/24/18 *Time: 08:00 Interval history: No acute events overnight. Not wearing BiPAP at night. BP and HR stable and at goal with rate control. Denies [place], N/V, Abdominal pain. Trying to be in urinal on exam. Has poor appetite. Exam Vital signs and Labs for Last 24 Hours: Temp Pulse Resp BP Pulse Ox 98.0 F 95 H 18 110/62 97 05/24/18 04:00 05/24/18 06:02 05/24/18 04:00 05/24/18 04:00 05/24/18 06:02 Laboratory Results - last 24 hr 05/22/18 21:15: POC Glucose 163 H 05/23/18 05:50: Total Counted 100, Neutrophils % (Manual) 89 H, Lymphocytes % (Manual) 3 L, Monocytes % (Manual) 7, Eosinophils % (Manual) 1, Platelet Estimate Normal, Poikilocytosis 2+, Stomatocytes 2+ 05/23/18 11:07: POC Glucose 134 H 05/23/18 16:26: POC Glucose 216 H 05/23/18 18:33: WBC 14.5 H, RBC 4.25 L, Hgb 12.4 L, Hct 41.2 L, MCV 96.8 H, MCH 29.0, MCHC 30.0 L, RDW 17.4, Plt Count 241, MPV 7.5, Neut % (Auto) 87.7 H, Lymph % (Auto) 2.5 L, [place] % (Auto) 7.9, Eos % (Auto) 1.8, Baso % (Auto) 0.0 L, Neut # (Auto) 12.7 H, Lymph # (Auto) 0.4 L, [place] # (Auto) 1.1 H, Eos # (Auto) 0.3, Baso # (Auto) 0.0, Total Counted 100, Neutrophils % (Manual) 91 H, Lymphocytes % (Manual) 1 L, Monocytes % (Manual) 7, Eosinophils % (Manual) 1, Platelet Estimate Normal, RBC Morphology Normal 05/23/18 18:33: Sodium 148 H, Potassium 4.2, Chloride 111 H, Carbon Dioxide 34 H , Anion Gap 7.2, BUN 37 H, Creatinine 1.63 H, Estimated Creat Clear 69, Estimated GFR 43 L, Est GFR ( Amer) 51 L, Glucose 145 H, Calcium 8.0 L 05/23/18 20:03: POC Glucose 117 H 05/24/18 05:29: POC Glucose 112 H I & O for Last 24 hours: Intake & Output 05/21/18 05/22/18 05/23/18 05/24/18 23:59 23:59 23:59 23:59 Intake Total 0 / 0 1432 / 1432 2002 2378 / 2378 Output Total 6550 / 6550 2800 / 2800 375 / 375 Balance 0 / 0 -5118 / -5118 -797 / -797 2002 Weight 97.522 kg 108.522 kg 109.458 kg 108.04 kg Microbiology Reports for the Last 24 Hours: Microbiology 05/21/18 08:07 Blood Blood Culture - Preliminary NO GROWTH AFTER 48 HOURS 05/21/18 08:07 Blood Blood Culture - Preliminary NO GROWTH AFTER 48 HOURS - *Routine HEENT Exam Head: Present: normocephalic, atraumatic Eye: Present: EOMI, PERRL ENT: Present: mucous membranes moist. Absent: dentition normal - *Routine Neck Exam Present: supple, full ROM, JVD. Absent: lymphadenopathy, thyromegaly - *Routine Respiratory Exam Present: prolonged expiratory phase, diminished air movement. Absent: rales, crackles - *Routine Cardiovascular Exam Present: irregularly irregular. Absent: murmur, gallop - *Routine Abdominal Exam Present: soft, normoactive bowel sounds - *Routine Rectal Exam Patient deferred: visual exam - *Routine Exam Patient deferred: penile exam - *Routine Extremities Exam Present: edema. Absent: cyanosis, clubbing - *Routine Skin Exam Present: intact, warm. Absent: cyanosis, erythema - *Routine Neurological Exam Present: alert, oriented X3 - Routine Psychiatric Exam Present: depressed. Absent: normal affect Assessment and Plan (1) Atrial fibrillation with RVR Problem details: Continue diltiazem transition to long-acting 120 mg daily -Reevaluate anticoagulation during follow-up Current visit: Yes Status: Acute Category: Medical Code(s): I48.91 - Unspecified atrial fibrillation (2) Hypernatremia Current visit: Yes Status: Acute Category: Medical Code(s): E87.0 - Hyperosmolality and hypernatremia (3) Chronic kidney disease, stage III (moderate) Current visit: Yes Status: Chronic Category: Medical Code(s): N18.3 - Chronic kidney disease, stage 3 (moderate) (4) Renal mass Problem details: The diagnosis, follow-up with Dr. Brooks Current visit: No Status: Acute Category: Medical Code(s): N28.89 - Other specified disorders of kidney and ureter - Assessment and plan all Dx Assessment and Plan for all problems:: Patient is a 67-year-old man with multiple comorbidities including end-stage emphysema, A. fib, new diagnosis of renal mass, and chronic kidney disease. Given tenuous health status, discussions with family have revolved around possibility of transferring to intermediate for skilled care due to debility versus hospice. Family wishes to nursing care at this time. Physical therapy and Occupational Therapy consulted for assessment and recommendations. Otherwise continue current level of care. No changes to diltiazem, oxygen therapy, or other medications. Discontinue IV fluids with goal of encouraging oral intake. Repeat labs in the morning.
--- NOTE | 2018-05-24 08:46 | Discharge Summary ---
General - General Admission date:: 05/21/18 Discharge date: 05/24/18 HPI HPI: 67-year-old male with recent hospitalization at [facility] discharged May 20 presented to the emergency department on the morning of May 21 with complaints of shortness of breath. Patient was found to be in atrial fibrillation with rapid ventricular response with heart rate reaching the 140s and 150s. He was placed on a Cardizem drip in the emergency department which brought his heart rate down to the low 100s. Patient was admitted on a Cardizem drip. He has medical history of chronic respiratory failure for which he wears CPAP at home at night and is oxygen dependent. He has history of chronic diastolic dysfunction. Echocardiogram performed during last admission showed ejection fraction of 55%. Patient is not a candidate for anticoagulant due to falls and a renal mass which has caused some hematuria. Since admission patient's heart rate has been in the high 90s to low 100s on Cardizem drip. ABG performed on admission s not reveal any acute respiratory failure. Patient was stable throughout the day. This morning nursing staff became concerned as patient seemed a little bit more confused and breathing was slightly labored. He has received Xopenex nebs. Patient himself admits to slight increase in shortness of breath. He denies chest pain. He had mild abdominal pain. He denies fevers or chills. Hospital Course Hospital Course: Rate better controlled after [id number] of Drp and transition to 180 Dilt ER. Stable vitals. Discussion on GOC with family. DC To correction with possible hospice. Objective Vital signs: Temp Pulse Resp BP Pulse Ox 98.0 F 95 H 18 110/62 97 05/24/18 04:00 05/24/18 06:02 05/24/18 04:00 05/24/18 04:00 05/24/18 06:02 - *Routine HEENT Exam Head: Present: normocephalic, atraumatic Eye: Present: EOMI, PERRL ENT: Present: mucous membranes moist. Absent: dentition normal Comments: arcus senilis - *Routine Neck Exam Present: supple, JVD. Absent: lymphadenopathy, thyromegaly - *Routine Respiratory Exam Present: prolonged expiratory phase, diminished air movement. Absent: CTA bilaterally, rales, crackles - *Routine Cardiovascular Exam Present: irregular rhythm. Absent: murmur - *Routine Abdominal Exam Present: soft, normoactive bowel sounds. Absent: tenderness - *Routine Rectal Exam Patient deferred: visual exam - *Routine Exam Patient deferred: penile exam - *Routine Extremities Exam Present: edema. Absent: cyanosis, clubbing - *Routine Skin Exam Present: intact. Absent: cyanosis, erythema - *Routine Neurological Exam Present: alert, oriented X3. Absent: altered mental status - Routine Psychiatric Exam Present: depressed. Absent: normal affect Results Labs on day of discharge: Labs from last 24 hours 05/24/18 05/23/18 05/23/18 05:29 20:03 18:33 WBC RBC Hgb Hct MCV MCH MCHC RDW Plt Count MPV Neut % (Auto) Lymph % (Auto) [place] % (Auto) Eos % (Auto) Baso % (Auto) Neut # (Auto) Lymph # (Auto) [place] # (Auto) Eos # (Auto) Baso # (Auto) Total Counted Neutrophils % (Manual) Lymphocytes % (Manual) Monocytes % (Manual) Eosinophils % (Manual) Platelet Estimate RBC Morphology Sodium 148 H Potassium 4.2 Chloride 111 H Carbon Dioxide 34 H Anion Gap 7.2 BUN 37 H Creatinine 1.63 H Estimated Creat Clear 69 Estimated GFR 43 L Est GFR ( Amer) 51 L Glucose 145 H POC Glucose 112 H 117 H Calcium 8.0 L 05/23/18 05/23/18 05/23/18 18:33 16:26 11:07 WBC 14.5 H RBC 4.25 L Hgb 12.4 L Hct 41.2 L MCV 96.8 H MCH 29.0 MCHC 30.0 L RDW 17.4 Plt Count 241 MPV 7.5 Neut % (Auto) 87.7 H Lymph % (Auto) 2.5 L [place] % (Auto) 7.9 Eos % (Auto) 1.8 Baso % (Auto) 0.0 L Neut # (Auto) 12.7 H Lymph # (Auto) 0.4 L [place] # (Auto) 1.1 H Eos # (Auto) 0.3 Baso # (Auto) 0.0 Total Counted 100 Neutrophils % (Manual) 91 H Lymphocytes % (Manual) 1 L Monocytes % (Manual) 7 Eosinophils % (Manual) 1 Platelet Estimate Normal RBC Morphology Normal Sodium Potassium Chloride Carbon Dioxide Anion Gap BUN Creatinine Estimated Creat Clear Estimated GFR Est GFR ( Amer) Glucose POC Glucose 216 H 134 H Calcium Preliminary micro results at discharge 05/21/18 08:07 Blood Culture - Preliminary Blood NO GROWTH AFTER 48 HOURS 05/21/18 08:07 Blood Culture - Preliminary Blood NO GROWTH AFTER 48 HOURS DS: Diagnosis - Discharge Diagnosis (1) Atrial fibrillation with RVR Status: Acute Problem details: Continue diltiazem transition to long-acting 120 mg daily -Reevaluate anticoagulation during follow-up (2) Hypernatremia Status: Acute (3) Chronic kidney disease, stage III (moderate) Status: Chronic (4) Renal mass Status: Acute Problem details: The diagnosis, follow-up with Dr. Brooks Discharge Plan - Patient Discharge Instructions Patient Instructions: Chronic Obstructive Pulmonary Disease, Atrial Fibrillation, Chronic Renal Failure, Hypernatremia-Adult - Follow up Plan Home Medications: Home Medications Medication Instructions Recorded Confirmed Type Lisinopril [Lisinopril 10mg Tab] 10 mg PO DAILY 05/16/18 05/21/18 History Metformin HCl [Glucophage] 1,000 mg PO BID 05/16/18 05/21/18 History Verapamil HCl [Calan SR 120mg 180 mg PO DAILY 05/16/18 05/21/18 History tablet] Furosemide [Furosemide 40MG tAB] 40 mg PO DAILY 05/21/18 05/21/18 History Tamsulosin HCl [Flomax 0.4mg 0.4 mg PO DAILY 05/21/18 05/21/18 History capsule] dilTIAZem HCl [Diltiazem 24Hr ER] 120 mg PO DAILY 05/21/18 05/21/18 History predniSONE [Prednisone 20mg 40 mg PO DAILY 05/21/18 05/21/18 History Tab] Prescriptions/Medication Reconciliation: No Action Verapamil HCl [Calan SR 120mg tablet] 180 mg PO DAILY Metformin HCl [Glucophage] 1,000 mg PO BID Furosemide [Furosemide 40MG tAB] 40 mg PO DAILY dilTIAZem HCl [Diltiazem 24Hr ER] 120 mg PO DAILY Lisinopril [Lisinopril 10mg Tab] 10 mg PO DAILY predniSONE [Prednisone 20mg Tab] 40 mg PO DAILY Tamsulosin HCl [Flomax 0.4mg capsule] 0.4 mg PO DAILY
[2018-05-24 12:05] LABS: ABG Base Excess 4.3 mmol/L (-2.4-2.3); ABG HCO3 29.6 mmhg (22.0-26.0); ABG Oxygen Saturation 97 % (90-100); ABG PH 7.37 mmol/L (7.35-7.45); ABG PO2 90.9 mmhg (80-100); ABG TCO2 31.2 mmhg (23-27)
[2018-05-24 12:28] LABS: Alanine Aminotransferase 113 U/L (12-78); Albumin Level 2.4 gm/dL (3.4-5.0); Albumin/Globulin Ratio 0.6 (1.1-1.8); Alkaline Phosphatase 152 U/L (46-116); Anion Gap 9.7 mEq/L (5-15); Aspartate Amino Transferase 75 U/L (15-37); Bilirubin,Total 0.6 mg/dL (0.2-1.0); Blood Urea Nitrogen 39 mg/dL (7-18); Calcium 8.4 mg/dL (8.5-10.1); Carbon Dioxide 31 mmol/L (21.0-32.0); Chloride 112 mmol/L (98-107); Globulin 3.7 gm/dl (1.3-3.2); Glucose 108 mg/dL (74-106); Potassium 4.7 mmoL/L (3.5-5.1); Sodium 148 mmol/L (136-145); Total Protein,Serum 6.1 gm/dL (6.4-8.2)
[2018-05-24 12:32] LABS: Eosinophils # 0.3 K/mm3 (0.0-0.4); Eosinophils % 2.1 % (0.1-12.0); Hematocrit 44.9 % (42.0-52.0); Hemoglobin 13.5 g/dL (14.1-18.0); Lymphocytes # 0.5 K/mm3 (0.7-4.5); Lymphocytes % 3.1 K/mm3 (10-50); Mean Corpuscular HGB Conc 30.1 g/dL (31.8-35.4); Mean Corpuscular Hemoglobin 29.2 pg (27.0-31.2); Mean Corpuscular Volume 97.2 fl (80-94); Mean Platelet Volume 7.4 fl (7.4-10.4); Monocytes # 1.3 K/mm3 (0.1-1.0); Monocytes % 9.1 % (1.7-9.3); Neutrophils # 12.6 K/mm3 (1.8-7.8); Neutrophils % 85.7 % (37.0-80.0); Platelet Count 236 K/mm3 (142-424); Red Blood Count 4.62 M/mm3 (4.60-6.20); Red Cell Distribution Width 17.1 % (11.5-17.5); White Blood Count 14.7 K/mm3 (4.8-10.8)
[2018-05-24 13:16] LABS: Allen's Test ACCEPTABLE; Oxygen 3LPM %
[2018-05-24 13:17] LABS: ABG PCO2 52.1 mmhg (35.0-45.0)
[2018-05-24 13:58] LABS: Microscopic, Urine URINE MICROSCOPIC (MICROSCOPIC)
[2018-05-24 13:59] LABS: Appearance,Urine CLEAR (Clear); Bilirubin,Urine Negative (Negative); Blood, Urine 2+ (Negative); Color,Urine YELLOW (Yellow); Glucose,Urine (UA) Negative (Negative); Ketones,Urine Negative (Negative); Leukocyte Esterase,Urine Negative (Negative); Protein,Urine Negative (Negative); Urobilinogen,Urine 0.2 EU/dl (0.2)
[2018-05-24 14:12] LABS: Bacteria,Urine Trace /lpf; WBC,Urine Occasional #/hpf (0-3)
[2018-05-24 14:32] LABS: Eosinophils % 3 % (0-3); Lymphocytes % 1 % (10-50); Monocytes % 9 % (2-9); Neutrophils % 85 % (42-76); RBC Morphology Normal; Total Cells Counted 100
--- NOTE | 2018-05-24 19:34 | Progress Note ---
Critical Care Event Note Code activated: Yes Narrative: This case had a high probability of a clinically significant, sudden, or life threatening deterioration of this patient's condition which required my full and direct attention, intervention and personal management. Attending was contacted while in clinic the patient had significant decline. Patient became hypotensive and unresponsive after assessment by physical therapy. IV bolus was initiated. Rapid response was called and ER doctor came to bedside. Labs were obtained. Patient responded to fluid bolus however remained hypotensive with MAPs in high 50s. Patient necessitated further resuscitative measures. Unable to obtain consent for CODE STATUS from patient due to altered mental status. Spoke to patient's who expressed she wanted everything done. Initiated vasopressors, Levophed, to maintain goal mean arterial pressure greater than 65. Patient clinically responded with increased blood pressure however remained tenuous. After arrival of patient's family at bedside, long discussion with family and led to decision to make patient DNR. He has consistently been clear that he did not want life support, or to be reliant on machines to stay alive. Given comorbidities of end-stage emphysema, atrial fibrillation, and renal mass, doc wood is contemplating comfort measures. They were not comfortable withdrawing vasopressor support this time however understands that if patient does not improve in the next 24 hours, will consider withdrawing vasopressors at that time and allowing "nature to take its course". Family specific they do not pursue ACLS, intubation, chest compressions, electric shock. Patient remains stable though tenuous on levo fed drip and IV fluids. Family declined placement of central lines or arterial lines at this time. Polo catheter placed Critical care time: 30 - 74 mins [facility] Critical Care Exam Vital signs: Temp Pulse Resp BP Pulse Ox 99.0 F 103 H 24 99/57 90 L 05/24/18 16:00 05/24/18 18:00 05/24/18 14:44 05/24/18 18:00 05/24/18 18:00 Narrative: Chronically ill-appearing, nasal cannula in place. Heart irregular. Pulses palpable radially, weak and thready in feet. Abdomen soft nondistended, suprapubic tenderness present. Lungs coarse with distant breath sounds and prolonged expiratory phase. Breathing intermittent and shallow. Waxing and waning alertness.
[2018-05-25 05:41] LABS: Basophils % 0.1 % (0.1-2.0); Eosinophils # 0.5 K/mm3 (0.0-0.4); Eosinophils % 5.3 % (0.1-12.0); Hematocrit 41.6 % (42.0-52.0); Hemoglobin 12.4 g/dL (14.1-18.0); Lymphocytes # 0.5 K/mm3 (0.7-4.5); Lymphocytes % 5.7 K/mm3 (10-50); Mean Corpuscular HGB Conc 29.8 g/dL (31.8-35.4); Mean Corpuscular Hemoglobin 29.8 pg (27.0-31.2); Mean Corpuscular Volume 99.9 fl (80-94); Mean Platelet Volume 7.5 fl (7.4-10.4); Monocytes # 0.9 K/mm3 (0.1-1.0); Monocytes % 9.3 % (1.7-9.3); Neutrophils # 7.5 K/mm3 (1.8-7.8); Neutrophils % 79.5 % (37.0-80.0); Platelet Count 198 K/mm3 (142-424); Red Blood Count 4.17 M/mm3 (4.60-6.20); Red Cell Distribution Width 16.8 % (11.5-17.5); White Blood Count 9.4 K/mm3 (4.8-10.8)
[2018-05-25 05:45] LABS: Anion Gap 5.3 mEq/L (5-15); Potassium 4.3 mmoL/L (3.5-5.1)
--- NOTE | 2018-05-25 07:59 | Progress Note ---
Internal Medicine - PN: Subj *Date: 05/25/18 *Time: 07:57 Interval history: Patient slept on BiPAP through the night. This morning he is awake, responsive. Denies pain. Remains on BiPAP ventilation. and daughters and other relatives are in the room. Discussed once again end-of-life / treatment goals. Exam Vital signs and Labs for Last 24 Hours: Temp Pulse Resp BP Pulse Ox 98.0 F 82 15 123/41 99 05/25/18 04:00 05/25/18 07:00 05/25/18 07:00 05/25/18 07:00 05/25/18 07:00 Laboratory Results - last 24 hr 05/24/18 11:55: POC Glucose 97 05/24/18 12:00: WBC 14.7 H, RBC 4.62, Hgb 13.5 L, Hct 44.9, MCV 97.2 H, MCH 29.2, MCHC 30.1 L, RDW 17.1, Plt Count 236, MPV 7.4, Neut % (Auto) 85.7 H, Lymph % (Auto) 3.1 L, Gove % (Auto) 9.1, Eos % (Auto) 2.1, Baso % (Auto) 0.0 L, Neut # (Auto) 12.6 H, Lymph # (Auto) 0.5 L, Gove # (Auto) 1.3 H, Eos # (Auto) 0.3, Baso # (Auto) 0.0, Total Counted 100, Neutrophils % (Manual) 85 H, Lymphocytes % (Manual) 1 L, Monocytes % (Manual) 9, Eosinophils % (Manual) 3, Basophils % (Manual) 1.0, Metamyelocytes % 1.0, Platelet Estimate Normal, RBC Morphology Normal 05/24/18 12:00: Sodium 148 H, Potassium 4.7, Chloride 112 H, Carbon Dioxide 31, Anion Gap 9.7, BUN 39 H, Creatinine 1.87 H, Estimated Creat Clear 59, Estimated GFR 36 L, Est GFR ( Amer) 44 L, Glucose 108 H D, Calcium 8.4 L, Magnesium 1.8 D, Total Bilirubin 0.6, AST 75 H D, ALT 113 H D, Alkaline Phosphatase 152 H , Troponin I < 0.02, Total Protein 6.1 L, Albumin 2.4 L, Globulin 3.7 H, Albumin/Globulin Ratio 0.6 L 05/24/18 12:01: Specimen Source R radial, O2 % 3lpm, ABG pH 7.37, ABG pCO2 52.1 H, ABG pO2 90.9, ABG HCO3 29.6 H, ABG Total CO2 31.2 H, ABG O2 Saturation 97, ABG Base Excess 4.3 H, Maximiliano Test Acceptable 05/24/18 12:45: Urine Color Yellow, Urine Appearance Clear, Urine pH 6.0, Ur Specific [place] 1.010, Urine Protein Negative, Urine Glucose (UA) Negative, Urine Ketones Negative, Urine Blood 2+, Urine Nitrate Negative, Urine Bilirubin Negative, Urine Urobilinogen 0.2, Ur Leukocyte Esterase Negative, Urine RBC 3-5, Urine WBC Occasional, Ur Squamous Epith Cells None, Urine Bacteria Trace 05/24/18 16:29: POC Glucose 151 H 05/24/18 21:22: POC Glucose 151 H 05/25/18 02:44: POC Glucose 91 05/25/18 05:19: WBC 9.4 D, RBC 4.17 L, Hgb 12.4 L, Hct 41.6 L, MCV 99.9 H, MCH 29.8, MCHC 29.8 L, RDW 16.8, Plt Count 198, MPV 7.5, Neut % (Auto) 79.5, Lymph % (Auto) 5.7 L, Gove % (Auto) 9.3, Eos % (Auto) 5.3, Baso % (Auto) 0.1, Neut # (Auto) 7.5, Lymph # (Auto) 0.5 L, Gove # (Auto) 0.9, Eos # (Auto) 0.5 H, Baso # (Auto) 0.0 05/25/18 05:19: Sodium 147 H, Potassium 4.3, Chloride 115 H, Carbon Dioxide 31, Anion Gap 5.3, BUN 34 H, Creatinine 1.55 H, Estimated Creat Clear 76, Estimated GFR 45 L, Est GFR ( Amer) 55 L D, Glucose 125 H, Calcium 8.0 L 05/25/18 05:54: POC Glucose 108 I & O for Last 24 hours: Intake & Output 09/16/18 09/17/18 09/18/18 09/19/18 11:59 11:59 11:59 11:59 Intake Total 340 / 340 2615 / 2615 2978 / 2978 4721 / 4721 Output Total 2400 / 2400 5550 / 5550 1775 / 1775 1350 / 1350 Balance -2060 / -2060 -2935 / -2935 1203 / 1203 3371 / 3371 Weight 239 lb 4 oz 241 lb 5 oz 238 lb 3 oz 254 lb 5 oz Narrative: Blood pressure remains under 100 systolic even on Levophed drip. Perfusion seems adequate, mentation is baseline. Lungs have rhonchi but otherwise clear. Severely diminished air movement as previously noted Heart rate irregular. Rate controlled. Abdomen is soft and nontender. Assessment and Plan (1) Atrial fibrillation with RVR Problem details: Continue diltiazem transition to long-acting 120 mg daily -Reevaluate anticoagulation during follow-up Current visit: Yes Status: Acute Category: Medical Code(s): I48.91 - Unspecified atrial fibrillation (2) Hypernatremia Current visit: Yes Status: Acute Category: Medical Code(s): E87.0 - Hyperosmolality and hypernatremia (3) Chronic kidney disease, stage III (moderate) Current visit: Yes Status: Chronic Category: Medical Code(s): N18.3 - Chronic kidney disease, stage 3 (moderate) (4) Renal mass Problem details: The diagnosis, follow-up with Dr. Brooks Current visit: No Status: Acute Category: Medical Code(s): N28.89 - Other specified disorders of kidney and ureter (5) Acute on chronic respiratory failure with hypoxia Problem details: Due to renal impairment, finished antibiotics during admission, continue steroids for additional day Current visit: No Status: Acute Category: Medical Code(s): J96.21 - Acute and chronic respiratory failure with hypoxia Continue BiPAP therapy. Previous notes reviewed. Agree with plan outlined from yesterday's notes. Reviewed this with family again. Plan will be to wean off Levophed today. Fluid bolus this morning. Patient indicated last night and again this morning does not wish artificial ventilation. Family is aware and agrees with this decision.
--- NOTE | 2018-05-26 09:09 | Progress Note ---
Internal Medicine - PN: Subj *Date: 05/26/18 *Time: 07:50 Interval history: Patient is resting comfortably in bed visiting with family on nasal cannula. He is in good spirits. He has no complaints. Alert and oriented x3. Irregularly irregular. Rhonchi thoughout all lung ford, poor air movement. Abdomen soft and nontender. Exam Vital signs and Labs for Last 24 Hours: Temp Pulse Resp BP Pulse Ox 98.7 F 91 H 20 119/59 95 05/26/18 08:00 05/26/18 08:00 05/26/18 08:00 05/26/18 08:00 05/26/18 08:00 Laboratory Results - last 24 hr 05/25/18 11:42: POC Glucose 97 05/25/18 16:04: POC Glucose 255 H 05/25/18 21:11: POC Glucose 199 H 05/26/18 06:33: POC Glucose 132 H I & O for Last 24 hours: Intake & Output 05/23/18 05/24/18 05/25/18 05/26/18 11:59 11:59 11:59 11:59 Intake Total 2615 / 2615 2978 / 2978 4721 / 4721 2052.093 / 205.093 Output Total 5550 / 5550 1775 / 1775 2750 / 2750 4950 / 4950 Balance -2935 / -2935 1203 / 1203 1970 / 1970 -2897.907 / -2897.907 Weight 241 lb 5 oz 238 lb 3 oz 254 lb 5 oz 257 lb 4 oz Microbiology Reports for the Last 24 Hours: Microbiology 05/21/18 08:07 Blood Blood Culture - Final NO GROWTH AFTER 5 DAYS 05/21/18 08:07 Blood Blood Culture - Final NO GROWTH AFTER 5 DAYS Assessment and Plan (1) Atrial fibrillation with RVR Problem details: Continue diltiazem transition to long-acting 120 mg daily -Reevaluate anticoagulation during follow-up Current visit: Yes Status: Acute Category: Medical Code(s): I48.91 - Unspecified atrial fibrillation (2) Hypernatremia Current visit: Yes Status: Acute Category: Medical Code(s): E87.0 - Hyperosmolality and hypernatremia (3) Chronic kidney disease, stage III (moderate) Current visit: Yes Status: Chronic Category: Medical Code(s): N18.3 - Chronic kidney disease, stage 3 (moderate) (4) Renal mass Problem details: The diagnosis, follow-up with Dr. Brooks Current visit: No Status: Acute Category: Medical Code(s): N28.89 - Other specified disorders of kidney and ureter (5) Acute on chronic respiratory failure with hypoxia Problem details: Due to renal impairment, finished antibiotics during admission, continue steroids for additional day Current visit: No Status: Acute Category: Medical Code(s): J96.21 - Acute and chronic respiratory failure with hypoxia - Assessment and plan all Dx Assessment and Plan for all problems:: Dr. Finch had extensive conversation with patient/family regarding his multiple terminal conditions. Dr. Finch discussed results of MRI with Dr. 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 This would require an extensive surgery for removal which patient would not tolerate due to his poor CV and pulmonary status. Patient and family verbalize understanding and are in agreement to hospice consultation today. Plan to d/c to [facility] with Hospice tomorrow.
--- NOTE | 2018-05-27 07:39 | Discharge Summary ---
General - General Admission date:: 05/24/18 <Dami Finch - 05/27/18 08:37> 05/24/18 <Teofilo Ascencio - 05/27/18 07:39> Discharge date: 05/27/18 <Teofilo Ascencio - 05/27/18 07:39> HPI HPI: 67-year-old male with recent hospitalization at [facility] discharged May 20 presented to the emergency department on the morning of May 21 with complaints of shortness of breath. Patient was found to be in atrial fibrillation with rapid ventricular response with heart rate reaching the 140s and 150s. He was placed on a Cardizem drip in the emergency department wh ich brought his heart rate down to the low 100s. Patient was admitted on a Cardizem drip. He has medical history of chronic respiratory failure for which he wears CPAP at home at night and is oxygen dependent. He has history of chronic diastolic dysfunction. Echocardiogram performed during last admission showed ejection fraction of 55%. Patient is not a candidate for anticoagulant due to falls and a renal mass which has caused some hematuria. Since admission patient's heart rate has been in the high 90s to low 100s on Cardizem drip. ABG performed on admission s not reveal any acute respiratory failure. Patient was stable throughout the day. This morning nursing staff became concerned as patient seemed a little bit more confused and breathing was slightly labored. He has received Xopenex nebs. Patient himself admits to slight increase in shortness of breath. He denies chest pain. He had mild abdominal pain. He denies fevers or chills. <Teofilo Ascencio - 05/27/18 07:40> Hospital Course Hospital Course: In addition to above outline of hospital stay, patient was noted to have ongoing hematuria, based presumptively on his right renal mass. I discussed the case with urology, Dr. Brooks, who noted that given tumor invasion into the vena cava patient would required open resection of what appears to be a renal cell carcinoma. Obviously patient is not a date for that at this point given his significant lung disease. Multiple discussions with the patient, his and children were held, they are in agreement that patient would not benefit from mechanical ventilation or aggressive cardiopulmonary resuscitation measures if needed, and hospice consultation was entertained, however with medication adjustment, namely cessation of diltiazem and lisinopril, patient's blood pressures improved and he was able to be taken off the Levophed drip. He did well over the next 36 hours and responded to physical therapy treatments. As a result, he will be able to be transferred to the [facility] for senior care care, physical therapy, occupational therapy and restorative care. He will be on the medication as noted. Minimal blood pressure medication will be given with metoprolol for blood pressure and rate control of his atrial fibrillation and his Polo catheter will continue because of hematuria and risk for urinary obstruction. The patient remains in atrial fibrillation is not a candidate for anticoagulation given his fall risk and ongoing hematuria with what appears to be an active renal cell carcinoma. Long-range plans will be dependent upon his response to skilled care. Should his respiratory status worsen and/or disease worsen hospice will be considered, if he improves to an extent that he could be considered for resection of the renal mass this will be considered. <Dami Finch - 05/27/18 08:37> Complicated course, patient required Levophed drip. Transitioned A. fib management to metoprolol. Pressures improved. Met criteria for senior care. Discharge to [facility] for senior care care. Patient remains tenuous at time of discharge. <Teofilo Ascencio - 05/27/18 07:40> Objective Vital signs: Temp Pulse Resp BP Pulse Ox 97.6 F 112 H 20 99/64 98 05/27/18 04:00 05/27/18 06:10 05/27/18 04:00 05/27/18 04:00 05/27/18 06:10 <Dami Finch - 05/27/18 08:37> Temp Pulse Resp BP Pulse Ox 97.6 F 112 H 20 99/64 98 05/27/18 04:00 05/27/18 06:10 05/27/18 04:00 05/27/18 04:00 05/27/18 06:10 <Teofilo Ascencio - 05/27/18 07:39> Narrative: This morning patient is awake, oriented 2. Responsive. Cranial nerves are intact oropharynx dry but clear. Poor dentition noted. No JVD. Anterior lung ford have rhonchi but at his baseline. Heart rate irregular in the high 90 range. Soft 2/6 holosystolic murmur noted. Abdomen soft and nontender. No edema or clubbing, move all extremity as well but he is exceedingly weak. Polo catheter draining blood-tinged urine. <StefDami - 05/27/18 08:37> Results Labs on day of discharge: Labs from last 24 hours 05/27/18 05/26/18 05/26/18 05:32 20:42 17:16 POC Glucose 87 216 H 244 H 05/26/18 12:35 POC Glucose 117 H <John Finchhen - 05/27/18 08:37> Labs from last 24 hours 05/27/18 05/26/18 05/26/18 05:32 20:42 17:16 POC Glucose 87 216 H 244 H 05/26/18 12:35 POC Glucose 117 H <SilvaTeofilo - 05/27/18 07:39> DS: Diagnosis - Discharge Diagnosis (1) Atrial fibrillation with RVR Status: Acute Problem details: Continue diltiazem transition to long-acting 120 mg daily -Reevaluate anticoagulation during follow-up (2) Hypernatremia Status: Acute (3) Chronic kidney disease, stage III (moderate) Status: Chronic (4) Renal mass Status: Acute Problem details: The diagnosis, follow-up with Dr. Brooks (5) Acute on chronic respiratory failure with hypoxia Status: Acute Problem details: Due to renal impairment, finished antibiotics during admission, continue steroids for additional day <SilvaTeofilo - 05/27/18 07:39> (1) Atrial fibrillation with RVR Status: Chronic Problem details: Continue diltiazem transition to long-acting 120 mg daily -Reevaluate anticoagulation during follow-up (2) Hypernatremia Status: Resolved (3) Chronic kidney disease, stage III (moderate) Status: Chronic (4) Renal mass Status: Chronic Problem details: The diagnosis, follow-up with Dr. Brooks (5) Acute on chronic respiratory failure with hypoxia Status: Chronic Problem details: Due to renal impairment, finished antibiotics during admission, continue steroids for additional day (6) Acute exacerbation of chronic obstructive airways disease Status: Acute <HipolitoeveDami - 05/27/18 08:37> Discharge Plan - Patient Discharge Instructions ACTIVITY: Continue current activity <Dami Finch 05/27/18 08:37> DIET: continue same diet <Dami Finch 05/27/18 08:37> Patient Instructions: Chronic Obstructive Pulmonary Disease, Atrial Fibrillation, Chronic Renal Failure, Hypernatremia-Adult <HipolitoeveDami - 05/27/18 08:37> Forms: <John Finchhen - 05/27/18 08:37> - Follow up Plan Follow up with: Maia Doan APRN [Nurse Practitioner] - 05/31/18 <Dami Finch - 05/27/18 08:37> Disposition: Xfer SNF <Dami Finch - 05/27/18 08:37> Home Medications: Home Medications Medication Instructions Recorded Confirmed Type Lisinopril [Lisinopril 10mg Tab] 10 mg PO DAILY 05/16/18 05/21/18 History Metformin HCl [Glucophage] 1,000 mg PO BID 05/16/18 05/21/18 History Verapamil HCl [Calan SR 120mg 180 mg PO DAILY 05/16/18 05/21/18 History tablet] Tamsulosin HCl [Flomax 0.4mg 0.4 mg PO DAILY 05/21/18 05/21/18 History capsule] dilTIAZem HCl [Diltiazem 24Hr ER] 120 mg PO DAILY 05/21/18 05/21/18 History <Dami Finch - 05/27/18 08:37> Prescriptions/Medication Reconciliation: New Acetaminophen [Tylenol 500mg tablet] 500 mg PO Q6HP PRN tablet PRN Reason: As Needed For Fever Or Pain Levalbuterol HCl [Xopenex 1.25mg/3mL neb] 1.25 mg IH TIDRT vial.neb Metoprolol Tartrate [Lopressor 50mg tablet] 50 mg PO BID tablet Polyethylene Glycol 3350 [Miralax 17gm Packet] 17 gm PO DAILY powd.pack Hydrocod/Acet 5/325 mg [[place] 5/325mg tablet] 1 tab PO Q6HP PRN #20 tab PRN Reason: Moderate Pain Insulin Lispro [HumaLOG 100 units/mL 3mL vial (SSI)] 0 unit SQ ACHS ml Gabapentin [Neurontin 100mg cap] 100 mg PO TID #90 cap Continue Tamsulosin HCl [Flomax 0.4mg capsule] 0.4 mg PO DAILY Changed Furosemide [Furosemide 40MG tAB] 20 mg PO DAILY #30 tablet predniSONE [Prednisone 20mg Tab] 20 mg PO DAILY #30 tablet Discontinued Verapamil HCl [Calan SR 120mg tablet] 180 mg PO DAILY Metformin HCl [Glucophage] 1,000 mg PO BID dilTIAZem HCl [Diltiazem 24Hr ER] 120 mg PO DAILY Lisinopril [Lisinopril 10mg Tab] 10 mg PO DAILY <Dami Finch - 05/27/18 08:37>
== END 2018-05-27 13:50 ==
LOC: 2ND 07:50 → ER 07:50 → 2ND 13:30
PROVIDERS: ADMIT Family Medicine; ATTEND Internal Medicine Adolescent Medicine

== ENCOUNTER 2018-10-24 08:04 | Inpatient (IN) ==
--- NOTE | 2018-10-24 08:03 | Emergency Department Note ---
ED Disposition Clinical Impression: Sepsis, Urinary tract infection, Pneumonia Disposition: Admitted As Inpatient Condition on Discharge: Fair Instructions: DI for Altered Mental Status Referrals: Dami Finch MD [Primary Care Provider] - Time of Disposition: 11:32 - Critical Care Critical Care Time: No Attestation: On , the high probability of a clinically significant, sudden or life threatening deterioration of the following system(s) required my full and direct attention, intervention and personal management. The time I documented below is in addition to time spent performing reported procedures but includes the following listed in this critical care notation. Medical Decision Making - Medical Records Medical records reviewed: Yes: I reviewed the patient's medical records. - Carlos Inquiry Pt receiving controlled substance: No Carlos was queried for this patient: No Vital Signs: 10/24/18 08:00 10/24/18 08:13 10/24/18 08:20 Temperature 98.3 F 98.3 F Temperature Source Rectal Rectal Pulse Rate [Left Radial] 136 H 136 H Respiratory Rate 22 22 Blood Pressure [Right Arm] 88/50 L 88/50 L 110/59 L Blood Pressure Mean [Right Arm] 62 62 76 Blood Pressure Source [Right Arm] Manual Cuff/ Auscultation Manual Cuff/ Auscultation Automatic Cuff Blood Pressure Position [Right Arm] Sitting Sitting Supine 02 Sat by Pulse Oximetry 90 L 90 L Oxygen Delivery Method Nasal Cannula Nasal Cannula Oxygen Flow Rate (LPM) 2 2 10/24/18 09:07 10/24/18 09:31 10/24/18 10:00 Temperature Temperature Source Pulse Rate [Left Radial] 130 H 123 H 144 H Respiratory Rate Blood Pressure [Right Arm] 93/58 L 87/58 L 76/52 L Blood Pressure Mean [Right Arm] 69 67 60 Blood Pressure Source [Right Arm] Automatic Cuff Automatic Cuff Automatic Cuff Blood Pressure Position [Right Arm] Sitting Supine Supine 02 Sat by Pulse Oximetry 100 100 Oxygen Delivery Method Oxygen Flow Rate (LPM) 10/24/18 10:53 10/24/18 11:06 Temperature Temperature Source Pulse Rate [Left Radial] 134 H Respiratory Rate 24 Blood Pressure [Right Arm] 106/53 L 104/59 L Blood Pressure Mean [Right Arm] 70 74 Blood Pressure Source [Right Arm] Automatic Cuff Blood Pressure Position [Right Arm] Supine 02 Sat by Pulse Oximetry 97 Oxygen Delivery Method Simple Mask Oxygen Flow Rate (LPM) 3 - Lab Data Lab Results 10/24/18 08:04: Specimen Source Right radial, O2 % 100%/ra, ABG pH 7.41, ABG pCO2 42.7, ABG pO2 53.6 L, ABG HCO3 26.3 H, ABG Total CO2 27.6 H, ABG O2 Saturation 89 L, ABG Base Excess 1.6, Maximiliano Test Patient unable 10/24/18 08:08: Urine Color Red, Urine Appearance Turbid, Urine pH 8.5, Ur Specific [place] <= 1.005, Urine Protein 2+, Urine Glucose (UA) Negative, Urine Ketones Negative, Urine Blood 3+, Urine Nitrate Negative, Urine Bilirubin Negative, Urine Urobilinogen 2.0, Ur Leukocyte Esterase Trace, Urine RBC Tntc, Urine WBC 10-20, Ur Squamous Epith Cells Occasional, Urine Bacteria 4+ 10/24/18 08:08: Influenza Type A Ag Negative, Influenza Type B Ag Negative 10/24/18 08:08: Group A Strep Rapid Negative 10/24/18 08:13: WBC 16.7 H, RBC 5.20, Hgb 15.5, Hct 49.4, MCV 94.9 H, MCH 29.9, MCHC 31.5 L, RDW 15.1, Plt Count 165, MPV 7.1 L, Neut % (Auto) 89.4 H, Lymph % (Auto) 0.7 L, [place] % (Auto) 9.4 H, Eos % (Auto) 0.2, Baso % (Auto) 0.3, Neut # (Auto) 14.9 H, Lymph # (Auto) 0.1 L, [place] # (Auto) 1.6 H, Eos # (Auto) 0.0, Baso # (Auto) 0.1, Total Counted 100, Neutrophils % (Manual) 82 H, Band Neutrophils % 8.0, Lymphocytes % (Manual) 1 L, Monocytes % (Manual) 7, Metamyelocytes % 2.0 H, Platelet Estimate Normal, RBC Morphology Not Reportable 10/24/18 08:13: Sodium 146 H, Potassium 3.8, Chloride 107, Carbon Dioxide 28, Anion Gap 14.8, BUN 29 H, Creatinine 2.22 H, Estimated Creat Clear 44, Estimated GFR 30 L, Est GFR ( Amer) 36 L, Glucose 152 H, Calcium 8.5, Total Bilirubin 1.1 H, AST 102 H, ALT 78, Alkaline Phosphatase 107, Total Protein 6.0 L, Albumin 2.6 L, Globulin 3.4 H, Albumin/Globulin Ratio 0.8 L 10/24/18 08:13: Lactate 6.1 H 10/24/18 08:13: Total Creatine Kinase 286, CK-MB (CK-2) 0.7, CK-MB (CK-2) Rel Index 0.2, Troponin I 0.03 10/24/18 08:13: TSH 1.76 D, Free T4 Index 2.4 L, Thyroxine (T4) 6.1, T3 Uptake 39 Result diagrams: 10/24/18 08:13 10/24/18 08:13 Orders (Tests/Meds): ED MEDICATIONS Generic Name Dose Route Start Last Admin Trade Name Freq PRN Reason Stop Dose Admin Ceftriaxone Sodium 2 gm/ 50 mls @ 100 mls/hr 10/24/18 09:15 10/24/18 09:36 Sodium Chloride IV 11/07/18 09:14 100 mls/hr Q24H OFELIA Administration Protocol Norepinephrine Bitartrate 8 mg 258 mls @ 15.48 mls/hr 10/24/18 10:15 10/24/18 10:31 / Dextrose IV 11/23/18 10:14 8 mcg/min .[id number] OFELIA 15.48 mls/hr Administration Protocol 8 MCG/MIN Levofloxacin/Dextrose 750 mg in 150 mls @ 100 mls/hr 10/24/18 11:00 Levofloxacin 750mg/150ml Premix IV 11/07/18 10:59 Q48H OFELIA Protocol Piperacillin Sod/Tazobactam 100 mls @ 200 mls/hr 10/24/18 13:00 Sod 4.5 gm/ Sodium Chloride IV 11/07/18 12:59 Q8H OFELIA Protocol Sodium Chloride 10 ml 10/24/18 08:16 Saline Flush 10ml Syringe IV 11/23/18 08:15 NEEDED PRN Maintain IV Site Discontinued Medications Generic Name Dose Route Start Last Admin Trade Name Freq PRN Reason Stop Dose Admin Acetaminophen 650 mg 10/24/18 11:21 Acetaminophen 650mg Suppository RC 10/24/18 11:22 ONCE ONE Sodium Chloride 1,000 mls @ 999 mls/hr 10/24/18 09:00 10/24/18 08:56 Sod Chlor 0.9% 1000ml Bag IV 10/24/18 10:00 999 mls/hr .Q1H1M OFELIA Administration Sodium Chloride 1,000 mls @ 999 mls/hr 10/24/18 09:00 10/24/18 08:56 Sod Chlor 0.9% 1000ml Bag IV 10/24/18 10:00 999 mls/hr .Q1H1M OFELIA Administration Sodium Chloride 2,860 mls @ 1,430 mls/hr 10/24/18 09:02 10/24/18 09:16 Sod Chlor 0.9% 1000ml Bag 30 ml/kg infuse over 2 hr (2860 ml) 10/24/18 11:01 1,430 mls/hr IV Administration .Q2H ONE ORDERS Category Date Time Status Type and Screen Stat BBK 10/24/18 10:56 Results Chest XR -- portable [XR chest portable] Stat Exams 10/24/18 07:59 Taken XR pelvis 1-2V Stat Exams 10/24/18 10:44 Taken Urinalysis and Microscopic Stat Lab 10/24/18 08:08 Ordered Blood Culture Stat Micro 10/24/18 08:04 Ordered Strep Screen Confirmation Stat Micro 10/24/18 08:08 Received Urine Culture Stat Micro 10/24/18 08:08 Received Arterial Blood Gas Stat RT 10/24/18 08:04 Ordered Altered Mental Status HPI - General Chief Complaint: Altered Mental Status Stated Complaint: ams Time Seen by Provider: 10/24/18 08:06 Mode of Arrival: EMS Source of Information: EMS, Medical Record (Came from [facility] [facility], altered mental status, marked decrease in alertness/responsiveness) - History of Present Illness MD complaint: altered mental status, confusion, decreased responsiveness Onset (ago): hour(s) (2-3) Timing confirmed by: other ([facility] home crew) Severity: severe Consistency of symptoms: unknown - Related Data Home Medications Medication Instructions Recorded Confirmed Aspirin 81 mg PO DAILY 10/24/18 10/24/18 Gabapentin [Neurontin 100mg 100 mg PO TID 10/24/18 10/24/18 cap] Insulin Lispro [HumaLOG 100 5 unit SQ HS 10/24/18 10/24/18 units/mL 3mL vial (SSI)] Levalbuterol HCl [Xopenex 1.25 mg IH TIDRT 10/24/18 10/24/18 1.25mg/3mL neb] Metoprolol Tartrate [Lopressor 50 mg PO BID 10/24/18 10/24/18 50mg tablet] Polyethylene Glycol 3350 [Miralax 17 gm PO DAILY 10/24/18 10/24/18 17gm Packet] Previous Rx's Medication Instructions Recorded Acetaminophen [Tylenol 500mg 500 mg PO Q6HP PRN tab 05/27/18 tablet] Furosemide [Furosemide 40MG tAB] 20 mg PO DAILY #30 tab 05/27/18 Hydrocod/Acet 5/325 mg [[place] 1 tab PO Q6HP PRN #20 tab 05/27/18 5/325mg tablet] Allergies Allergy/AdvReac Type Severity Reaction Status Date / Time morphine Allergy Unknown hallucinati Verified 08/23/18 15:14 ons [facility] History - Hepatitis A Screen Attestation statement:: This patient has been screened for Hepatitis A risk factors. I have reviewed the patient's past medical history: Yes Medical History: Reports:: Cancer, Cardiomyopathy, Congestive Heart Failure, Chronic Obstructive Pulmonary Disease (COPD), Diabetes Mellitus Type 1, Hyperlipidemia, Hypertension Denies:: Diabetes Mellitus Type 2, Internal Pacemaker, MRSA Laterality Cases: Left: Arthroscopy Shoulder Other Surgeries: Yes: Cancer Surgery (skin removal), Cholecystectomy, Skin Cancer Excision. No: Pacemaker Amputation: No Fractures: Yes - Social History Smoking Status: Former smoker Tobacco Type: cigarettes # Packs/Day (cigarettes): 1 #Yrs smoked (if former smoker): 42 Alcohol Intake: never Alcohol Intake Frequency:: other Occupational Status: retired Housing: house Household Members: spouse, children Family Hx:: Hypertension ROS Obtained: Yes All systems reviewed & no additional complaints, Yes unobtainable due to mental condition - Constitutional Constitutional: Reports fatigue, Reports fever(s), Reports lethargy, Reports weakness - Respiratory Respiratory: No chest congestion, No cough - Gastrointestinal Gastrointestingal: Reports: abdominal pain. Denies: diarrhea, vomiting - Genitourinary Male Genitourinary: Reports hematuria - Integumentary/Breasts Skin/Breast: Denies rash, Reports skin pain - Neurologic Neurologic: Reports system reviewed and no additional complaints, except as docu, Denies seizure-like activity, Reports weakness - Hematologic/Lymphatic Henatologic/Lymphatic: Denies easy bleeding, Denies easy bruising, Denies lymphadenopathy Physical Exam - General General appearance: obtunded - Head Head exam: atraumatic - Eye Eye exam: Present: normal appearance, PERRL, EOMI - ENT ENT exam: Present: normal exam, normal oropharynx, mucous membranes moist, TM's normal bilaterally, normal external ear exam - Chest Chest inspection: Present: normal inspection, symmetric chest wall rise. Abse nt: tenderness - Respiratory Respiratory exam: Present: normal lung sounds bilaterally. Absent: respiratory distress - Cardiovascular Cardiovascular exam: Present: tachycardia - Abdominal Exam Abdominal exam: Present: soft, tenderness, mass. Absent: distention, guarding, rebound, rigidity, pulsatile mass - exam: Present: other (gross hematuria since catheter exchange at [facility]. Balloon was inflated in prostated urethra) - Extremities Exam Extremities exam: Present: normal inspection, full ROM, normal capillary refill, other. Absent: calf tenderness - Neurological Exam Neurological exam: Present: other (responsive to pain, says yes in affirmative regarding painful stimuli). Absent: alert, oriented X3, CN II-XII intact - Skin Skin exam: Present: warm, dry, intact
[2018-10-24 08:12] LABS: ABG Base Excess 1.6 mmol/L (-2.4-2.3); ABG HCO3 26.3 mmhg (22.0-26.0); ABG Oxygen Saturation 89 % (90-100); ABG PCO2 42.7 mmhg (35.0-45.0); ABG PH 7.41 mmol/L (7.35-7.45); ABG PO2 53.6 mmhg (80-100); ABG TCO2 27.6 mmhg (23-27); Allen's Test Patient Unable; Oxygen 100%/RA %
[2018-10-24 08:21] LABS: Microscopic, Urine URINE MICROSCOPIC (MICROSCOPIC)
[2018-10-24 08:47] LABS: Basophils # 0.1 K/mm3 (0-0.2); Basophils % 0.3 % (0.1-2.0); Eosinophils % 0.2 % (0.1-12.0); Hematocrit 49.4 % (42.0-52.0); Hemoglobin 15.5 g/dL (14.1-18.0); Lymphocytes # 0.1 K/mm3 (0.7-4.5); Lymphocytes % 0.7 % (10-50); Mean Corpuscular HGB Conc 31.5 g/dL (31.8-35.4); Mean Corpuscular Hemoglobin 29.9 pg (27.0-31.2); Mean Corpuscular Volume 94.9 fl (80-94); Mean Platelet Volume 7.1 fl (7.4-10.4); Monocytes # 1.6 K/mm3 (0.1-1.0); Monocytes % 9.4 % (1.7-9.3); Neutrophils # 14.9 K/mm3 (1.8-7.8); Neutrophils % 89.4 % (37.0-80.0); Platelet Count 165 K/mm3 (142-424); Red Cell Distribution Width 15.1 % (11.5-17.5); White Blood Count 16.7 K/mm3 (4.8-10.8)
[2018-10-24 08:51] LABS: Appearance,Urine TURBID (Clear); Bilirubin,Urine Negative (Negative); Blood, Urine 3+ (Negative); Color,Urine RED (Yellow); Glucose,Urine (UA) Negative (Negative); Ketones,Urine Negative (Negative); Leukocyte Esterase,Urine TRACE (Negative); PH,Urine 8.5 (5.0-8.5); Protein,Urine 2+ (Negative); Specific Gravity, Urine <= 1.005 (1.005-1.030)
[2018-10-24 08:54] LABS: RBC,Urine TNTC #/hpf (0-3); Squamous Epithelial Cell,Urine Occasional #/hpf (0-5)
[2018-10-24 08:55] LABS: Bacteria,Urine 4+ /lpf
[2018-10-24 09:11] LABS: Albumin Level 2.6 gm/dL (3.4-5.0); Albumin/Globulin Ratio 0.8 (1.1-1.8); Anion Gap 14.8 mEq/L (5-15); Bilirubin,Total 1.1 mg/dL (0.2-1.0); Calcium 8.5 mg/dL (8.5-10.1); Globulin 3.4 gm/dl (1.3-3.2); Potassium 3.8 mmoL/L (3.5-5.1)
[2018-10-24 09:12] LABS: Free Thyroxine Index 2.4 ug/dL (5.93-13.13); Thyroid Stimulating Hormone 1.76 uIU/ml (0.358-3.740)
[2018-10-24 09:18] LABS: Lymphocytes % 1 % (10-50); Monocytes % 7 % (2-9); Neutrophils % 82 % (42-76); Total Cells Counted 100
--- NOTE | 2018-10-24 12:48 | Pharmacy Consult Notes ---
[facility] Pharmacy VTE Monitoring - Patient Demographics Admission date: 10/24/18 Report Date: 10/24/18 Time: 12:48 Allergies/Adverse Reactions: Patient Allergies morphine Allergy (Unknown, Verified 08/23/18 15:14) hallucinations Height: 1.83 m Weight: 95.254 kg Patient Problems: Current Active Problems Sepsis (Acute) Urinary tract infection (Acute) Pneumonia (Acute) - VTE Risk Labs: VTE Related Lab Results Hgb 15.5 g/dL (14.1-18.0) 10/24/18 08:13 Hct 49.4 % (42.0-52.0) 10/24/18 08:13 Plt Count 165 K/mm3 (142-424) 10/24/18 08:13 BUN 29 mg/dL (7-18) H 10/24/18 08:13 Creatinine 2.22 mg/dL (0.70-1.30) H 10/24/18 08:13 Estimated Creat Clear 44 mL/min (50-200) 10/24/18 08:13 - Prophylaxis VTE Prophylaxis Ordered?: Yes Types of VTE Prophylaxis: TEDS Knee High Location of Applied Device: Bilateral Lower Extremeties - VTE Diagnosis Confirmed Treatment or plan recommended: Continue Current Treatment
--- NOTE | 2018-10-24 13:55 | Sepsis Event Note ---
Tissue Perfusion Evaluation Sepsis Re-Evaluation Performed: Yes Date Performed: 10/24/18 Time Performed: 13:55 Sepsis Follow-Up: Yes: Respiratory exam, Cardiovascular exam, Capillary refill, Peripheral pulse strength, Peripheral pulse location, Skin exam, Vital Signs Most Recent Vital Signs: Temperature 100.5 F H 10/24/18 13:30 Temperature Source Oral 10/24/18 13:30 Pulse Rate 80 10/24/18 13:30 Respiratory Rate 24 10/24/18 13:30 Blood Pressure 100/42 L 10/24/18 13:30 Blood Pressure Mean 61 10/24/18 13:30 Blood Pressure Source Automatic Cuff 10/24/18 13:30 Blood Pressure Position Supine 10/24/18 13:30 02 Sat by Pulse Oximetry 97 10/24/18 13:30 Oxygen Delivery Method 10/24/18 13:47 Oxygen Flow Rate (LPM) 4 10/24/18 13:17
--- NOTE | 2018-10-24 14:12 | History & Physical Report ---
*Admission Date: 10/24/18 *Chief complaint: Fever/mental status changes/sepsis *History of present illness: 68-year-old white male with chronic lung disease, end-stage emphysema-chronic renal insufficiency and renal mass suspicious for carcinoma who [facility] the past [facility] months for strengthening/ongoing medical care who was in his normal state of compromised health until yesterday afternoon when he began to have some effusion and fevers. His noticed that his Polo catheter seem discolored and apparently the Polo catheter was replaced by nursing staff at the [facility] but this replacement was apparently secured in the urethra. Patient this morning became lethargic, obtunded, febrile and was brought to the emergency department here. Polo catheter was noted to be in the urethra and was placed, significant hematuria was observed, evidence of leukocytes and nitrates in urine dipstick was noted and patient had infiltrates on chest x-ray along with fever, tachycardia and low blood pressure as well as high lactic acid levels. Initial diagnosis of sepsis possibly from UTI versus pneumonia was entertained, patient has been placed on broad-spectrum antibiotics, fluid boluses and levofed and transition to floor bed. [facility] History I have reviewed the patient's past medical history: Yes Medical History: Reports:: Cancer, Cardiomyopathy, Congestive Heart Failure, Chronic Obstructive Pulmonary Disease (COPD) (Oxygen requiring,), Diabetes Mellitus Type 2 (Insulin requiring), Hyperlipidemia, Hypertension Denies:: Internal Pacemaker, MRSA *Have you ever received a pneumonia vaccine?: Yes *Have you received a flu vaccine this season?: No Laterality Cases: Left: Arthroscopy Shoulder Other Surgeries: Yes: Cancer Surgery (skin removal), Cholecystectomy, Skin Cancer Excision. No: Pacemaker Amputation: No Fractures: Yes - *Social History Smoking Status: Former smoker Tobacco Type: cigarettes # Packs/Day (cigarettes): 1 #Yrs smoked (if former smoker): 42 Alcohol Intake: never Alcohol Intake Frequency:: other *Occupational Status:: retired Housing: house Household Members: spouse, children *Travel in the last 8 weeks: None - Psychiatric History Expresses thoughts of harming self/others: None Suicide Plan Description: No Plan Family Hx:: Hypertension Review of Systems - Review of Systems Review of systems:: unable to obtain (Patient significantly obtunded) - *Neurologic Reports weakness, Denies seizure-like activity Meds Home Medications Medication Instructions Recorded Confirmed Type Acetaminophen [Tylenol 500mg 500 mg PO Q6HP PRN tab 05/27/18 10/24/18 Rx tablet] Hydrocod/Acet 5/325 mg [[place] 1 tab PO Q6HP PRN #20 tab 05/27/18 10/24/18 Rx 5/325mg tablet] Aspirin 81 mg PO DAILY 10/24/18 10/24/18 History Furosemide [Lasix 40mg tablet] 40 mg PO DAILY 10/24/18 10/24/18 History Gabapentin [Neurontin 100mg 100 mg PO TID 10/24/18 10/24/18 History cap] Insulin Lispro [HumaLOG 100 5 unit SQ HS 10/24/18 10/24/18 History units/mL 3mL vial (SSI)] Levalbuterol HCl [Xopenex 1.25 mg IH TIDRT 10/24/18 10/24/18 History 1.25mg/3mL neb] Metoprolol Tartrate [Lopressor 50 mg PO BID 10/24/18 10/24/18 History 50mg tablet] Polyethylene Glycol 3350 [Miralax 17 gm PO DAILY 10/24/18 10/24/18 History 17gm Packet] Potassium Chloride [Klor-con 20 20 meq PO DAILY 10/24/18 10/24/18 History mEq tablet] Allergies Allergy/AdvReac Type Severity Reaction Status Date / Time morphine Allergy Unknown hallucinati Verified 08/23/18 15:14 ons Exam Vital signs and Labs for Last 24 Hours: Temp Pulse Resp BP Pulse Ox 100.5 F H 80 24 100/42 L 97 10/24/18 13:30 10/24/18 13:30 10/24/18 13:30 10/24/18 13:30 10/24/18 13:30 Laboratory Results - last 24 hr 10/24/18 08:04: Specimen Source Right radial, O2 % 100%/ra, ABG pH 7.41, ABG pCO 2 42.7, ABG pO2 53.6 L, ABG HCO3 26.3 H, ABG Total CO2 27.6 H, ABG O2 Saturation 89 L, ABG Base Excess 1.6, Maximiliano Test Patient unable 10/24/18 08:08: Urine Color Red, Urine Appearance Turbid, Urine pH 8.5, Ur Specific [place] <= 1.005, Urine Protein 2+, Urine Glucose (UA) Negative, Urine Ketones Negative, Urine Blood 3+, Urine Nitrate Negative, Urine Bilirubin Negative, Urine Urobilinogen 2.0, Ur Leukocyte Esterase Trace, Urine RBC Tntc, Urine WBC 10-20, Ur Squamous Epith Cells Occasional, Urine Bacteria 4+ 10/24/18 08:08: Influenza Type A Ag Negative, Influenza Type B Ag Negative 10/24/18 08:08: Group A Strep Rapid Negative 10/24/18 08:13: WBC 16.7 H, RBC 5.20, Hgb 15.5, Hct 49.4, MCV 94.9 H, MCH 29.9, MCHC 31.5 L, RDW 15.1, Plt Count 165, MPV 7.1 L, Neut % (Auto) 89.4 H, Lymph % (Auto) 0.7 L, [place] % (Auto) 9.4 H, Eos % (Auto) 0.2, Baso % (Auto) 0.3, Neut # (Auto) 14.9 H, Lymph # (Auto) 0.1 L, [place] # (Auto) 1.6 H, Eos # (Auto) 0.0, Baso # (Auto) 0.1, Total Counted 100, Neutrophils % (Manual) 82 H, Band Neutrophils % 8.0, Lymphocytes % (Manual) 1 L, Monocytes % (Manual) 7, Metamyelocytes % 2.0 H, Platelet Estimate Normal, RBC Morphology Not Reportable 10/24/18 08:13: Sodium 146 H, Potassium 3.8, Chloride 107, Carbon Dioxide 28, Anion Gap 14.8, BUN 29 H, Creatinine 2.22 H, Estimated Creat Clear 44, Estimated GFR 30 L, Est GFR ( Amer) 36 L, Glucose 152 H, Calcium 8.5, Total Bilirubin 1.1 H, AST 102 H, ALT 78, Alkaline Phosphatase 107, Total Protein 6.0 L, Albumin 2.6 L, Globulin 3.4 H, Albumin/Globulin Ratio 0.8 L 10/24/18 08:13: Lactate 6.1 H 10/24/18 08:13: Total Creatine Kinase 286, CK-MB (CK-2) 0.7, CK-MB (CK-2) Rel Index 0.2, Troponin I 0.03 10/24/18 08:13: TSH 1.76 D, Free T4 Index 2.4 L, Thyroxine (T4) 6.1, T3 Uptake 39 10/24/18 10:56: Blood Type A Negative, Antibody Screen Negative 10/24/18 13:13: Lactate 5.3 H I & O for Last 24 hours: Intake & Output 10/22/18 10/23/18 10/24/18 10/25/18 11:59 11:59 11:59 11:59 Weight 210 lb 230 lb 4 oz Narrative: Patient is sleeping, he will respond to tactile and verbal stimuli, and apparently is much more responsive than he was in the emergency department according to nursing staff and family. Denies pain. Falls asleep very quickly. Oropharynx dry but clear. No JVD. Lungs have rhonchi diffusely but symmetric air entry. Heart rate tachycardic but regular. Abdomen soft and nontender. Lipoma on left lower arm just above the elbow consistent with prior exams. Perfusion is diminished with capillary refill at 3 seconds. Pulses are diminished in feet but this is baseline. No focal neurologic deficits but exam compromised because of obtundation. Assessment and Plan (1) Pneumonia Current visit: Yes Status: Acute Category: Medical Code(s): J18.9 - Pneumonia, unspecified organism Broad-spectrum antibiotics as noted. (2) Sepsis Current visit: Yes Status: Acute Category: Medical Code(s): A41.9 - Sepsis, unspecified organism Fluid boluses, pressors as indicated. Close observation. Continue to respect DNR status. (3) Urinary tract infection Current visit: Yes Status: Acute Category: Medical Code(s): N39.0 - Urinary tract infection, site not specified Polo catheter seems to be in better position. Urology consultation tomorrow. Treat with antibiotics as noted (4) Acute on chronic renal failure Problem details: Labs in 3 days, avoid nephrotoxic's Current visit: No Status: Acute Category: Medical Code(s): N17.9 - Acute kidney failure, unspecified; N18.9 - Chronic kidney disease, unspecified Close observation of creatinine tonight and then again tomorrow morning.
[2018-10-24 17:28] LABS: Anion Gap 17.4 mEq/L (5-15); Calcium 8.1 mg/dL (8.5-10.1); Potassium 4.4 mmoL/L (3.5-5.1)
[2018-10-25 06:52] LABS: Basophils # 0.1 K/mm3 (0-0.2); Basophils % 0.4 % (0.1-2.0); Eosinophils % 0.1 % (0.1-12.0); Hematocrit 47.9 % (42.0-52.0); Lymphocytes # 0.6 K/mm3 (0.7-4.5); Lymphocytes % 2.8 % (10-50); Mean Corpuscular HGB Conc 31.3 g/dL (31.8-35.4); Mean Corpuscular Hemoglobin 29.7 pg (27.0-31.2); Mean Corpuscular Volume 94.8 fl (80-94); Mean Platelet Volume 8.2 fl (7.4-10.4); Monocytes # 1.4 K/mm3 (0.1-1.0); Monocytes % 6.2 % (1.7-9.3); Neutrophils # 20.5 K/mm3 (1.8-7.8); Neutrophils % 90.6 % (37.0-80.0); Platelet Count 117 K/mm3 (142-424); Red Blood Count 5.06 M/mm3 (4.60-6.20); Red Cell Distribution Width 15.2 % (11.5-17.5); White Blood Count 22.7 K/mm3 (4.8-10.8)
[2018-10-25 06:57] LABS: Anion Gap 16.8 mEq/L (5-15); Calcium 8.4 mg/dL (8.5-10.1); Potassium 5.8 mmoL/L (3.5-5.1)
[2018-10-25 07:25] LABS: Lymphocytes % 2 % (10-50); Monocytes % 4 % (2-9); Neutrophils % 77 % (42-76); Total Cells Counted 100
--- NOTE | 2018-10-25 13:48 | Progress Note ---
Internal Medicine - PN: Subj *Date: 10/25/18 *Time: 08:45 Interval history: Slept poorly overnight. Continued to have abdominal pain. Blood pressure has continued to be low with continued use of levo fed overnight. Able to wean dosage with initiation of metoprolol getting better heart rate control. Additionally patient's Polo catheter stopped having urine output. Has had significant volume instilled to help flush clots. Unfortunately no longer able to extract urine. Development of firm, uncomfortable lower abdominal distention concerning for bladder distention. Remained afebrile. Denies any nausea. Family at bedside during rounds. Exam Vital signs and Labs for Last 24 Hours: Temp Pulse Resp BP Pulse Ox 98.1 F 112 H 20 158/57 H 98 10/25/18 11:45 10/25/18 13:44 10/25/18 11:59 10/25/18 11:59 10/25/18 11:59 Laboratory Results - last 24 hr 10/24/18 15:33: Lactate 4.9 H 10/24/18 17:07: POC Glucose 96 10/24/18 17:10: Sodium 148 H, Potassium 4.4, Chloride 110 H, Carbon Dioxide 25, Anion Gap 17.4 H, BUN 38 H D, Creatinine 2.83 H D, Estimated Creat Clear 37, Estimated GFR 22 L, Est GFR ( Amer) 27 L D, Glucose 118 H D, Calcium 8.1 L 10/24/18 20:10: POC Glucose 91 10/24/18 23:00: Stl Aeromonas (PCR) Not detected, Stl C. cayetanensis PCR Not detected, Stool Rotavirus (PCR) Not detected, Stl Adenov F 40/41 PCR Not detected, Stool Astrovirus (PCR) Not detected, Stool Campylobacter PCR Not detected, Stl C.difficile Tox PCR Not detected, Stool Cryptosporidium PCR Not detected, Stl E.coli Shiga Tox PCR Not detected, Stool E coli O157 PCR Not detected, Stl Enterotoxigenic E PCR Not detected, Stool EPEC (PCR) Not detected, Stool EAEC (PCR) Not detected, Stl E. histolytica PCR Not detected, Stool Giardia Lamblia PCR Not detected, Stool Salmonella PCR Not detected, Stool Sapovirus (PCR) Not detected, Stl P. shigelloides PCR Not detected, Stl Shigella/EIEC PCR Not detected, St Y.enterocolitica PCR Not detected, Stool Vibrio (PCR) Not detected, Stl Vibrio cholerae PCR Not detected, Stl Norovirus GI/GII PCR Not detected 10/25/18 05:44: WBC 22.7 H* D, RBC 5.06, Hgb 15.0, Hct 47.9, MCV 94.8 H, MCH 29.7, MCHC 31.3 L, RDW 15.2, Plt Count 117 L D, MPV 8.2, Neut % (Auto) 90.6 H, Lymph % (Auto) 2.8 L, [place] % (Auto) 6.2, Eos % (Auto) 0.1, Baso % (Auto) 0.4, Neut # (Auto) 20.5 H, Lymph # (Auto) 0.6 L, [place] # (Auto) 1.4 H, Eos # (Auto) 0.0, Baso # (Auto) 0.1, Total Counted 100, Neutrophils % (Manual) 77 H, Band Neutrophils % 11.0 H, Lymphocytes % (Manual) 2 L, Monocytes % (Manual) 4, Metamyelocytes % 6.0 H, Platelet Estimate Moderate decrease 10/25/18 05:44: Sodium 146 H, Potassium 5.8 H D, Chloride 110 H, Carbon Dioxide 25, Anion Gap 16.8 H, BUN 52 H D, Creatinine 3.90 H D, Estimated Creat Clear 28, Estimated GFR 15 L*, Est GFR ( Amer) 19 L* D, Glucose 90 D, Calcium 8.4 L 10/25/18 05:53: POC Glucose 79 10/25/18 11:55: POC Glucose 75 I & O for Last 24 hours: Intake & Output 10/22/18 10/23/18 10/24/18 10/25/18 23:59 23:59 23:59 23:59 Intake Total 270 / 270 2222 / 2222 Output Total 2210 / 2210 Balance 270 / 270 Weight 104.44 kg 107.19 kg Microbiology Reports for the Last 24 Hours: Microbiology 10/24/18 08:08 Throat Group A Streptococcus Screen (EVELIN) - Final Negative for Group A Streptococcus. 10/24/18 08:04 Blood Blood Culture - Preliminary 10/24/18 08:04 Blood Blood Culture - Preliminary 10/24/18 08:08 Urine,Clean Catch Urine Culture - Preliminary Narrative: Patient is awake and alert. Oriented to person and place Moist mucous membranes. No JVD. Lungs have rhonchi diffusely but symmetric air entry. Heart rate tachycardic, irregularly irregular, no murmurs Abdomen soft, tender most prominently in lower abdomen, firm tender mass just below umbilicus concerning for bladder Lipoma on left lower arm just above the elbow consistent with prior exams. Perfusion is adequate with capillary refill at 2-3 seconds. Pulses are diminished in feet but this is baseline. No focal neurologic deficits. Assessment and Plan (1) Pneumonia Current visit: Yes Status: Acute Category: Medical Code(s): J18.9 - Pneumonia, unspecified organism (2) Sepsis Current visit: Yes Status: Acute Category: Medical Code(s): A41.9 - Sepsis, unspecified organism Able to wean off vasopressor today. Continue fluid resuscitation with IV maint enance. Continue antibiotics as ordered, monitor for improvement (3) Urinary tract infection Current visit: Yes Status: Acute Qualifiers: Urinary tract infection type: acute cystitis Hematuria presence: with hematuria Qualified Code(s): N30.01 - Acute cystitis with hematuria Category: Medical Code(s): N39.0 - Urinary tract infection, site not specified Continue current antibiotics. Continues to require catheter. (4) Acute on chronic renal failure Problem details: Labs in 3 days, avoid nephrotoxic's Current visit: No Status: Acute Qualifiers: Acute renal failure type: with other specified pathological lesion Chronic kidney disease stage: stage 3 (moderate) Qualified Code(s): N17.8 - Other acute kidney failure; N18.3 - Chronic kidney disease, stage 3 (moderate) Category: Medical Code(s): N17.9 - Acute kidney failure, unspecified; N18.9 - Chronic kidney disease, unspecified Unclear etiology however use of vasopressor, worsening atrial fibrillation, urinary obstruction all complicate this problem. Monitor for improvement with resolution of obstruction, improved heart rate, ability to wean off vasopressor over the course of the day. Continue IV fluid hydration. Avoid renal toxic's (5) Atrial fibrillation with RVR Problem details: Continue diltiazem transition to long-acting 120 mg daily -Reevaluate anticoagulation during follow-up Current visit: No Status: Acute Category: Medical Code(s): I48.91 - Unspecified atrial fibrillation Acute worsening overnight with unstable rhythm. Suspect secondary to levofed and holding of metoprolol. Reinitiated metoprolol as improved heart rate control will likely improve cardiac output and blood pressure. (6) Renal mass Problem details: The diagnosis, follow-up with Dr. Brooks Current visit: No Status: Chronic Category: Medical Code(s): N28.89 - Other specified disorders of kidney and ureter Unstable for treatment/extraction. (7) Hyperkalemia Current visit: Yes Status: Acute Category: Medical Code(s): E87.5 - Hyperkalemia Due to acute on chronic kidney injury, monitor for improvement with resolution of obstruction of urine output. Repeat labs this evening. (8) Gross hematuria Current visit: Yes Status: Acute Category: Medical Code(s): R31.0 - Gross hematuria Secondary to urethral trauma and cystitis. (9) Urethral trauma Current visit: Yes Status: Acute Category: Medical Code(s): S37.30XA - Unspecified injury of urethra, initial encounter Urology consulted, appreciate recommendations -Three-way catheter placed today for continuous irrigation, continue overnight. Monitor for improvement in clarity of urine. Patient more comfortable after initiation of irrigations. Patient will likely need catheter to remain in place for the next week as trauma heals. Plan to follow-up with urology in the next 2-3 weeks. - Assessment and plan all Dx Assessment and Plan for all problems:: Patient's condition remains serious. Gradual improvement today with ability to wean off levofed. Continue to monitor kidney function. Prognosis remains guarded. Continues to require inpatient management. De-escalate to acute status now that patient is off of vasopressor with improved heart rate control and improvement in his sepsis status.
[2018-10-25 14:51] LABS: Microscopic, Urine URINE MICROSCOPIC (MICROSCOPIC)
[2018-10-25 14:53] LABS: Bilirubin,Urine Negative (Negative); Blood, Urine 3+ (Negative); Color,Urine RED (Yellow); Glucose,Urine (UA) Negative (Negative); Ketones,Urine TRACE (Negative); Leukocyte Esterase,Urine TRACE (Negative); PH,Urine 8.5 (5.0-8.5); Protein,Urine 2+ (Negative); Specific Gravity, Urine 1.015 (1.005-1.030)
[2018-10-25 14:54] LABS: Appearance,Urine Turbid (Clear)
[2018-10-25 15:10] LABS: RBC,Urine TNTC #/hpf (0-3); WBC,Urine Occasional #/hpf (0-3)
--- NOTE | 2018-10-25 17:05 | Consult Report ---
*Admission Date: 10/24/18 *Chief complaint: Hematuria with clot retention and urinary retention *History of present illness: Patient was transferred from [facility] after a catheter was apparently placed in the urethra with the balloon inflated. He was admitted for further intervention. The nursing staff was unable to replace his catheter. He developed difficulty voiding and was unable to pass urine. His lower abdominal area was distended and uncomfortable. Is a history of large renal mass which has not been treated due to comorbidities and high risk of surgery. I was able to pass a 22 [place] three-way Polo catheter with the aid of a catheter guide. This was performed under sterile technique. A large amount of bloody urine was obtained. The catheter was hand irrigated with removal of small amount of organized clot. Continuous irrigation was begun and this cleared to a very light peach color. I recommend continuous bladder irrigation for 24 hours. Considering his urethral trauma I would leave his catheter in place for 1 week. Will follow up with me in 1-2 weeks. Review of Systems - *Neurologic Reports weakness, Denies seizure-like activity [facility] History Medical History: Reports:: Cancer, Cardiomyopathy, Congestive Heart Failure, Chronic Obstructive Pulmonary Disease (COPD) (Oxygen requiring,), Diabetes Mellitus Type 1, Diabetes Mellitus Type 2 (Insulin requiring), Hyperlipidemia, Hypertension Denies:: Internal Pacemaker, MRSA *Have you ever received a pneumonia vaccine?: Yes *Have you received a flu vaccine this season?: No Laterality Cases: Left: Arthroscopy Shoulder Other Surgeries: Yes: Cancer Surgery (skin removal), Cholecystectomy, Skin Cancer Excision. No: Pacemaker Amputation: No Fractures: Yes - *Social History Smoking Status: Former smoker Tobacco Type: cigarettes # Packs/Day (cigarettes): 1 #Yrs smoked (if former smoker): 42 Alcohol Intake: never Alcohol Intake Frequency:: other *Occupational Status:: retired Housing: house Household Members: spouse, children *Travel in the last 8 weeks: None - Psychiatric History Expresses thoughts of harming self/others: None Suicide Plan Description: No Plan Family Hx:: Hypertension Meds Home Medications Medication Instructions Recorded Confirmed Type Acetaminophen [Tylenol 500mg 500 mg PO Q6HP PRN tab 05/27/18 10/24/18 Rx tablet] Hydrocod/Acet 5/325 mg [[place] 1 tab PO Q6HP PRN #20 tab 05/27/18 10/24/18 Rx 5/325mg tablet] Aspirin 81 mg PO DAILY 10/24/18 10/24/18 History Furosemide [Lasix 40mg tablet] 40 mg PO DAILY 10/24/18 10/24/18 History Gabapentin [Neurontin 100mg 100 mg PO TID 10/24/18 10/24/18 History cap] Insulin Lispro [HumaLOG 100 5 unit SQ HS 10/24/18 10/24/18 History units/mL 3mL vial (SSI)] Levalbuterol HCl [Xopenex 1.25 mg IH TIDRT 10/24/18 10/24/18 History 1.25mg/3mL neb] Metoprolol Tartrate [Lopressor 50 mg PO BID 10/24/18 10/24/18 History 50mg tablet] Polyethylene Glycol 3350 [Miralax 17 gm PO DAILY 10/24/18 10/24/18 History 17gm Packet] Potassium Chloride [Klor-con 20 20 meq PO DAILY 10/24/18 10/24/18 History mEq tablet] Allergies Allergy/AdvReac Type Severity Reaction Status Date / Time morphine Allergy Unknown hallucinati Verified 08/23/18 15:14 ons Exam Vital signs and Labs for Last 24 Hours: Temp Pulse Resp BP Pulse Ox 98.8 F 111 H 20 110/61 99 10/25/18 16:00 10/25/18 16:00 10/25/18 16:00 10/25/18 16:00 10/25/18 16:00 Laboratory Results - last 24 hr 10/24/18 17:07: POC Glucose 96 10/24/18 17:10: Sodium 148 H, Potassium 4.4, Chloride 110 H, Carbon Dioxide 25, Anion Gap 17.4 H, BUN 38 H D, Creatinine 2.83 H D, Estimated Creat Clear 37, Estimated GFR 22 L, Est GFR ( Amer) 27 L D, Glucose 118 H D, Calcium 8.1 L 10/24/18 20:10: POC Glucose 91 10/24/18 23:00: Stl Aeromonas (PCR) Not detected, Stl C. cayetanensis PCR Not detected, Stool Rotavirus (PCR) Not detected, Stl Adenov F 40/41 PCR Not detected, Stool Astrovirus (PCR) Not detected, Stool Campylobacter PCR Not detected, Stl C.difficile Tox PCR Not detected, Stool Cryptosporidium PCR Not detected, Stl E.coli Shiga Tox PCR Not detected, Stool E coli O157 PCR Not detected, Stl Enterotoxigenic E PCR Not detected, Stool EPEC (PCR) Not detected, Stool EAEC (PCR) Not detected, Stl E. histolytica PCR Not detected, Stool Giardia Lamblia PCR Not detected, Stool Salmonella PCR Not detected, Stool Sapovirus (PCR) Not detected, Stl P. shigelloides PCR Not detected, Stl Shigell a/EIEC PCR Not detected, St Y.enterocolitica PCR Not detected, Stool Vibrio (PCR) Not detected, Stl Vibrio cholerae PCR Not detected, Stl Norovirus GI/GII PCR Not detected 10/25/18 05:44: WBC 22.7 H* D, RBC 5.06, Hgb 15.0, Hct 47.9, MCV 94.8 H, MCH 2 9.7, MCHC 31.3 L, RDW 15.2, Plt Count 117 L D, MPV 8.2, Neut % (Auto) 90.6 H, Lymph % (Auto) 2.8 L, [place] % (Auto) 6.2, Eos % (Auto) 0.1, Baso % (Auto) 0.4, Neut # (Auto) 20.5 H, Lymph # (Auto) 0.6 L, [place] # (Auto) 1.4 H, Eos # (Auto) 0.0, Baso # (Auto) 0.1, Total Counted 100, Neutrophils % (Manual) 77 H, Band Neutrophils % 11.0 H, Lymphocytes % (Manual) 2 L, Monocytes % (Manual) 4, Metamyelocytes % 6.0 H, Platelet Estimate Moderate decrease 10/25/18 05:44: Sodium 146 H, Potassium 5.8 H D, Chloride 110 H, Carbon Dioxide 25, Anion Gap 16.8 H, BUN 52 H D, Creatinine 3.90 H D, Estimated Creat Clear 28, Estimated GFR 15 L*, Est GFR ( Amer) 19 L* D, Glucose 90 D, Calcium 8.4 L 10/25/18 05:53: POC Glucose 79 10/25/18 11:30: Urine Color Red, Urine Appearance Turbid, Urine pH 8.5, Ur Specific [place] 1.015, Urine Protein 2+, Urine Glucose (UA) Negative, Urine Ketones Trace, Urine Blood 3+, Urine Nitrate Positive, Urine Bilirubin Negative, Urine Urobilinogen 1.0, Ur Leukocyte Esterase Trace, Urine RBC Tntc, Urine WBC Occasional, Ur Squamous Epith Cells None 10/25/18 11:55: POC Glucose 75 10/25/18 16:34: POC Glucose 72 I & O for Last 24 hours: Intake & Output 10/22/18 10/23/18 10/24/18 10/25/18 23:59 23:59 23:59 23:59 Intake Total 270 / 270 2842 / 2842 Output Total 2460 / 2460 Balance 270 / 270 382 / 382 Weight 104.44 kg 107.19 kg Microbiology Reports for the Last 24 Hours: Microbiology 10/24/18 08:08 Throat Group A Streptococcus Screen (EVELIN) - Final Negative for Group A Streptococcus. 10/24/18 08:04 Blood Blood Culture - Preliminary 10/24/18 08:04 Blood Blood Culture - Preliminary 10/24/18 08:08 Urine,Clean Catch Urine Culture - Preliminary Results - Labs 10/25/18 05:44 10/25/18 05:44 Laboratory Results - last 24 hr 10/24/18 17:07: POC Glucose 96 10/24/18 17:10: Sodium 148 H, Potassium 4.4, Chloride 110 H, Carbon Dioxide 25, Anion Gap 17.4 H, BUN 38 H D, Creatinine 2.83 H D, Estimated Creat Clear 37, Estimated GFR 22 L, Est GFR ( Amer) 27 L D, Glucose 118 H D, Calcium 8.1 L 10/24/18 20:10: POC Glucose 91 10/24/18 23:00: Stl Aeromonas (PCR) Not detected, Stl C. cayetanensis PCR Not detected, Stool Rotavirus (PCR) Not detected, Stl Adenov F 40/41 PCR Not detected, Stool Astrovirus (PCR) Not detected, Stool Campylobacter PCR Not detected, Stl C.difficile Tox PCR Not detected, Stool Cryptosporidium PCR Not detected, Stl E.coli Shiga Tox PCR Not detected, Stool E coli O157 PCR Not detected, Stl Enterotoxigenic E PCR Not detected, Stool EPEC (PCR) Not detected, Stool EAEC (PCR) Not detected, Stl E. histolytica PCR Not detected, Stool Giardia Lamblia PCR Not detected, Stool Salmonella PCR Not detected, Stool Sapovirus (PCR) Not detected, Stl P. shigelloides PCR Not detected, Stl Shigella/EIEC PCR Not detected, St Y.enterocolitica PCR Not detected, Stool Vibrio (PCR) Not detected, Stl Vibrio cholerae PCR Not detected, Stl Norovirus GI/GII PCR Not detected 10/25/18 05:44: WBC 22.7 H* D, RBC 5.06, Hgb 15.0, Hct 47.9, MCV 94.8 H, MCH 29.7, MCHC 31.3 L, RDW 15.2, Plt Count 117 L D, MPV 8.2, Neut % (Auto) 90.6 H, Lymph % (Auto) 2.8 L, [place] % (Auto) 6.2, Eos % (Auto) 0.1, Baso % (Auto) 0.4, Neut # (Auto) 20.5 H, Lymph # (Auto) 0.6 L, [place] # (Auto) 1.4 H, Eos # (Auto) 0.0, Baso # (Auto) 0.1, Total Counted 100, Neutrophils % (Manual) 77 H, Band Neutrophils % 11.0 H, Lymphocytes % (Manual) 2 L, Monocytes % (Manual) 4, Metamyelocytes % 6.0 H, Platelet Estimate Moderate decrease 10/25/18 05:44: Sodium 146 H, Potassium 5.8 H D, Chloride 110 H, Carbon Dioxide 25, Anion Gap 16.8 H, BUN 52 H D, Creatinine 3.90 H D, Estimated Creat Clear 28, Estimated GFR 15 L*, Est GFR ( Amer) 19 L* D, Glucose 90 D, Calcium 8.4 L 10/25/18 05:53: POC Glucose 79 10/25/18 11:30: Urine Color Red, Urine Appearance Turbid, Urine pH 8.5, Ur Specific [place] 1.015, Urine Protein 2+, Urine Glucose (UA) Negative, Urine Ketones Trace, Urine Blood 3+, Urine Nitrate Positive, Urine Bilirubin Negative, Urine Urobilinogen 1.0, Ur Leukocyte Esterase Trace, Urine RBC Tntc, Urine WBC Occasional, Ur Squamous Epith Cells None 10/25/18 11:55: POC Glucose 75 10/25/18 16:34: POC Glucose 72 Assessment and Plan (1) Pneumonia Current visit: Yes Status: Acute Category: Medical Code(s): J18.9 - Pneumonia, unspecified organism (2) Sepsis Current visit: Yes Status: Acute Category: Medical Code(s): A41.9 - Sepsis, unspecified organism (3) Urinary tract infection Current visit: Yes Status: Acute Category: Medical Code(s): N39.0 - Urinary tract infection, site not specified (4) Acute on chronic renal failure Problem details: Labs in 3 days, avoid nephrotoxic's Current visit: No Status: Acute Category: Medical Code(s): N17.9 - Acute kidney failure, unspecified; N18.9 - Chronic kidney disease, unspecified
[2018-10-25 18:12] LABS: Anion Gap 16.2 mEq/L (5-15); Calcium 7.7 mg/dL (8.5-10.1); Potassium 5.2 mmoL/L (3.5-5.1)
[2018-10-26 06:16] LABS: Basophils % 0.1 % (0.1-2.0); Eosinophils % 0.2 % (0.1-12.0); Hematocrit 41.5 % (42.0-52.0); Hemoglobin 13.3 g/dL (14.1-18.0); Lymphocytes # 0.7 K/mm3 (0.7-4.5); Lymphocytes % 4.3 % (10-50); Mean Corpuscular HGB Conc 32.1 g/dL (31.8-35.4); Mean Corpuscular Volume 93.4 fl (80-94); Monocytes # 0.7 K/mm3 (0.1-1.0); Monocytes % 4.5 % (1.7-9.3); Neutrophils % 90.9 % (37.0-80.0); Platelet Count 60 K/mm3 (142-424); Red Blood Count 4.45 M/mm3 (4.60-6.20); Red Cell Distribution Width 14.9 % (11.5-17.5); White Blood Count 15.4 K/mm3 (4.8-10.8)
[2018-10-26 06:25] LABS: Anion Gap 11.4 mEq/L (5-15); Calcium 8.3 mg/dL (8.5-10.1); Potassium 4.4 mmoL/L (3.5-5.1)
[2018-10-26 07:18] LABS: Lymphocytes % 2 % (10-50); Monocytes % 5 % (2-9); Neutrophils % 80 % (42-76); Total Cells Counted 100
[2018-10-26 07:19] LABS: RBC Morphology Normal
--- NOTE | 2018-10-26 08:31 | Progress Note ---
Internal Medicine - PN: Subj *Date: 10/26/18 *Time: 08:29 Interval history: Patient did fairly well overnight. He is more alert, responsive, and recognizes me. Has been drinking fluids but has no desire to eat solids. Exam Vital signs and Labs for Last 24 Hours: Temp Pulse Resp BP Pulse Ox 98.6 F 119 H 22 123/76 95 10/26/18 08:00 10/26/18 08:00 10/26/18 08:00 10/26/18 08:00 10/26/18 08:00 Laboratory Results - last 24 hr 10/24/18 08:08: Urine Color Red, Urine Appearance Turbid, Urine pH 8.5, Ur Specific [place] <= 1.005, Urine Protein 2+, Urine Glucose (UA) Negative, Urine Ketones Negative, Urine Blood 3+, Urine Nitrate Negative, Urine Bilirubin Negative, Urine Urobilinogen 2.0, Ur Leukocyte Esterase Trace, Urine RBC Tntc, Urine WBC 10-20, Ur Squamous Epith Cells Occasional, Urine Bacteria 4+ 10/25/18 11:30: Urine Color Red, Urine Appearance Turbid, Urine pH 8.5, Ur Specific [place] 1.015, Urine Protein 2+, Urine Glucose (UA) Negative, Urine Ketones Trace, Urine Blood 3+, Urine Nitrate Positive, Urine Bilirubin Negative, Urine Urobilinogen 1.0, Ur Leukocyte Esterase Trace, Urine RBC Tntc, Urine WBC Occasional, Ur Squamous Epith Cells None 10/25/18 11:55: POC Glucose 75 10/25/18 16:34: POC Glucose 72 10/25/18 17:55: Sodium 145, Potassium 5.2 H, Chloride 110 H, Carbon Dioxide 24, Anion Gap 16.2 H, BUN 63 H, Creatinine 3.98 H, Estimated Creat Clear 27, Estimated GFR 15 L*, Est GFR ( Amer) 18 L*, Glucose 94, Calcium 7.7 L 10/25/18 20:09: POC Glucose 81 10/26/18 05:14: POC Glucose 83 10/26/18 05:55: WBC 15.4 H D, RBC 4.45 L, Hgb 13.3 L, Hct 41.5 L, MCV 93.4, MCH 30.0, MCHC 32.1, RDW 14.9, Plt Count 60 L D, MPV 9.0, Neut % (Auto) 90.9 H, Lymph % (Auto) 4.3 L, [place] % (Auto) 4.5, Eos % (Auto) 0.2, Baso % (Auto) 0.1, Neut # (Auto) 14.0 H, Lymph # (Auto) 0.7, [place] # (Auto) 0.7, Eos # (Auto) 0.0, Baso # (Auto) 0.0, Total Counted 100, Neutrophils % (Manual) 80 H, Band Neutrophils % 9.0 H, Lymphocytes % (Manual) 2 L, Atypical Lymphs % 1.0, Monocytes % (Manual) 5, Metamyelocytes % 3.0 H, Platelet Estimate Moderate decrease, RBC Morphology Normal 10/26/18 05:55: Sodium 148 H, Potassium 4.4, Chloride 113 H, Carbon Dioxide 28, Anion Gap 11.4, BUN 61 H, Creatinine 2.63 H D, Estimated Creat Clear 41, Estimated GFR 24 L, Est GFR ( Amer) 30 L D, Glucose 89, Calcium 8.3 L I & O for Last 24 hours: Intake & Output 10/23/18 10/24/18 10/25/18 10/26/18 11:59 11:59 11:59 11:59 Intake Total 2292 / 2292 6922 / 6922 Output Total 2210 / 2210 1650 / 1650 Balance 82 / 82 5272 / 5272 Weight 210 lb 236 lb 5 oz Microbiology Reports for the Last 24 Hours: Microbiology 10/24/18 08:04 Blood Blood Culture - Preliminary Gram Negative Rods Gram Negative Rods#2 10/24/18 08:04 Blood Blood Culture - Preliminary Gram Negative Rods Gram Negative Rods#2 10/24/18 08:08 Urine,Clean Catch Urine Culture - Preliminary Gram Negative Rods Gram Negative Rods#2 10/24/18 08:08 Throat Group A Streptococcus Screen (EVELIN) - Final Negative for Group A Streptococcus. Narrative: Patient's more alert as noted. Cranial nerves are symmetric. Lungs rhonchi throughout but slightly better air entry. Abdomen soft. Heart rate regular. Perfusion status is vastly improved, and he is able to move all of his extremities but globally exceedingly weak. Polo catheter with irrigation device is draining tea colored urine. Much clearer than yesterday. Assessment and Plan (1) Pneumonia Current visit: Yes Status: Acute Category: Medical Code(s): J18.9 - Pneumonia, unspecified organism (2) Sepsis Current visit: Yes Status: Acute Category: Medical Code(s): A41.9 - Seps is, unspecified organism Initial blood cultures appear to be E. coli species. Continue current broad- spectrum antibiotics. Await official cultures and sensitivities before narrowing/continuing therapy. Patient will need PICC line placement today for ongoing antibiotic therapy. (3) Urinary tract infection Current visit: Yes Status: Acute Qualifiers: Urinary tract infection type: acute cystitis Hematuria presence: with hematuria Qualified Code(s): N30.01 - Acute cystitis with hematuria Category: Medical Code(s): N39.0 - Urinary tract infection, site not specified Appreciate urology consult from yesterday. Continue irrigation. (4) Acute on chronic renal failure Problem details: Labs in 3 days, avoid nephrotoxic's Current visit: No Status: Acute Qualifiers: Acute renal failure type: with other specified pathological lesion Chronic kidney disease stage: stage 3 (moderate) Qualified Code(s): N17.8 - Other acute kidney failure; N18.3 - Chronic kidney disease, stage 3 (moderate) Category: Medical Code(s): N17.9 - Acute kidney failure, unspecified; N18.9 - Chronic kidney disease, unspecified Has stabilized and in fact has improved. Monitor tomorrow. (5) Atrial fibrillation with RVR Problem details: Continue diltiazem transition to long-acting 120 mg daily -Reevaluate anticoagulation during follow-up Current visit: No Status: Acute Category: Medical Code(s): I48.91 - Unspecified atrial fibrillation (6) Renal mass Problem details: The diagnosis, follow-up with Dr. Brooks Current visit: No Status: Chronic Category: Medical Code(s): N28.89 - Other specified disorders of kidney and ureter (7) Hyperkalemia Current visit: Yes Status: Acute Category: Medical Code(s): E87.5 - Hyperkalemia (8) Gross hematuria Current visit: Yes Status: Acute Category: Medical Code(s): R31.0 - Gross hematuria (9) Urethral trauma Current visit: Yes Status: Acute Category: Medical Code(s): S37.30XA - Unspecified injury of urethra, initial encounter
[2018-10-27 06:31] LABS: Basophils % 0.1 % (0.1-2.0); Eosinophils # 0.1 K/mm3 (0.0-0.4); Eosinophils % 0.4 % (0.1-12.0); Hematocrit 38.9 % (42.0-52.0); Hemoglobin 12.1 g/dL (14.1-18.0); Lymphocytes # 0.7 K/mm3 (0.7-4.5); Lymphocytes % 5.7 % (10-50); Mean Corpuscular HGB Conc 31.2 g/dL (31.8-35.4); Mean Corpuscular Hemoglobin 29.7 pg (27.0-31.2); Mean Corpuscular Volume 95.3 fl (80-94); Mean Platelet Volume 8.8 fl (7.4-10.4); Monocytes # 0.5 K/mm3 (0.1-1.0); Monocytes % 3.8 % (1.7-9.3); Neutrophils # 11.1 K/mm3 (1.8-7.8); Neutrophils % 90.1 % (37.0-80.0); Red Blood Count 4.08 M/mm3 (4.60-6.20); Red Cell Distribution Width 14.6 % (11.5-17.5); White Blood Count 12.3 K/mm3 (4.8-10.8)
[2018-10-27 06:50] LABS: Anion Gap 6.3 mEq/L (5-15); Calcium 8.2 mg/dL (8.5-10.1); Potassium 4.3 mmoL/L (3.5-5.1)
[2018-10-27 07:22] LABS: Platelet Count 46 K/mm3 (142-424)
[2018-10-27 07:24] LABS: Lymphocytes % 4 % (10-50); Monocytes % 3 % (2-9); Neutrophils % 87 % (42-76); Total Cells Counted 100
[2018-10-27 07:25] LABS: RBC Morphology Normal
--- NOTE | 2018-10-27 08:52 | Progress Note ---
Internal Medicine - PN: Subj *Date: 10/27/18 *Time: 07:30 Interval history: Patient states he feels "better." Reports some right low back pain, states "I think its from laying in this bed." Exam Vital signs and Labs for Last 24 Hours: Temp Pulse Resp BP Pulse Ox 99.0 F 103 H 18 124/87 96 10/27/18 07:38 10/27/18 07:38 10/27/18 07:38 10/27/18 07:38 10/27/18 07:38 Laboratory Results - last 24 hr 10/26/18 11:19: POC Glucose 79 10/26/18 16:33: POC Glucose 94 10/26/18 18:38: POC Glucose 133 H 10/26/18 19:55: POC Glucose 113 H 10/27/18 05:20: WBC 12.3 H, RBC 4.08 L, Hgb 12.1 L, Hct 38.9 L, MCV 95.3 H, MCH 29.7, MCHC 31.2 L, RDW 14.6, Plt Count 46 L*, MPV 8.8, Neut % (Auto) 90.1 H, Lymph % (Auto) 5.7 L, [place] % (Auto) 3.8, Eos % (Auto) 0.4, Baso % (Auto) 0.1, Neut # (Auto) 11.1 H, Lymph # (Auto) 0.7, [place] # (Auto) 0.5, Eos # (Auto) 0.1, Baso # (Auto) 0.0, Total Counted 100, Neutrophils % (Manual) 87 H, Band Neutrophils % 4.0, Lymphocytes % (Manual) 4 L, Atypical Lymphs % 1.0, Monocytes % (Manual) 3, Metamyelocytes % 1.0, Platelet Estimate Marked decrease, RBC Morphology Normal 10/27/18 05:20: Sodium 148 H, Potassium 4.3, Chloride 114 H, Carbon Dioxide 32, Anion Gap 6.3, BUN 42 H D, Creatinine 1.30 D, Estimated Creat Clear 83, Estimated GFR 55 L, Est GFR ( Amer) 67 D, Glucose 107 H D, Calcium 8.2 L 10/27/18 05:21: POC Glucose 97 I & O for Last 24 hours: Intake & Output 10/24/18 10/25/18 10/26/18 02/21/19 11:59 11:59 11:59 11:59 Intake Total 2292 / 2292 6922 / 6922 1334 / 1334 Output Total 2210 / 2210 1650 / 1650 5750 / 5750 Balance 82 / 82 5272 / 5272 -4416 / -4416 Weight 210 lb 236 lb 5 oz 236 lb Microbiology Reports for the Last 24 Hours: Microbiology 10/24/18 08:04 Blood Blood Culture - Preliminary Gram Negative Rods Gram Negative Rods#2 10/24/18 08:04 Blood Blood Culture - Preliminary Gram Negative Rods Gram Negative Rods#2 10/24/18 08:08 Urine,Clean Catch Urine Culture - Final Escherichia coli Providencia rettgeri Narrative: Alert and oriented x3. Poor dentition. Rate and rhythm regular. No LE edema. Fine crackles bilateral bases. Abdomen soft and nontender Assessment and Plan (1) Pneumonia Current visit: Yes Status: Acute Category: Medical Code(s): J18.9 - Pneumonia, unspecified organism (2) Sepsis Current visit: Yes Status: Acute Category: Medical Code(s): A41.9 - Sepsis, unspecified organism (3) Urinary tract infection Current visit: Yes Status: Acute Qualifiers: Urinary tract infection type: acute cystitis Hematuria presence: with hematuria Qualified Code(s): N30.01 - Acute cystitis with hematuria Category: Medical Code(s): N39.0 - Urinary tract infection, site not specified (4) Acute on chronic renal failure Problem details: Labs in 3 days, avoid nephrotoxic's Current visit: No Status: Acute Qualifiers: Acute renal failure type: with other specified pathological lesion Chronic kidney disease stage: stage 3 (moderate) Qualified Code(s): N17.8 - Other acute kidney failure; N18.3 - Chronic kidney disease, stage 3 (moderate) Category: Medical Code(s): N17.9 - Acute kidney failure, unspecified; N18.9 - Chronic kidney disease, unspecified (5) Atrial fibrillation with RVR Problem details: Continue diltiazem transition to long-acting 120 mg daily -Reevaluate anticoagulation during follow-up Current visit: No Status: Acute Category: Medical Code(s): I48.91 - Unspecified atrial fibrillation (6) Renal mass Problem details: The diagnosis, follow-up with Dr. Brooks Current visit: No Status: Chronic Category: Medical Code(s): N28.89 - Other specified disorders of kidney and ureter (7) Hyperkalemia Current visit: Yes Status: Acute Category: Medical Code(s): E87.5 - Hyperkalemia (8) Gross hematuria Current visit: Yes Status: Acute Category: Medical Code(s): R31.0 - Gross hematuria (9) Urethral trauma Current visit: Yes Status: Acute Category: Medical Code(s): S37.30XA - Unspecified injury of urethra, initial encounter - Assessment and plan all Dx Assessment and Plan for all problems:: Urine culture revealed E. Coli and Providencia Rettgeri both sensitive to zosyn. Blood cultures show growth as well. PICC line placement yesterday. D/c ceftriaxone and levaquin as they may be contributing to his thrombocytopenia. Recheck CBC in the am. Urine is clearing, d/c bladder irrigation. PT/OT evaluate and treat today. Will consider d/c back to [facility] for IV antibiotics tomorrow.
[2018-10-28 06:57] LABS: Basophils % 0.1 % (0.1-2.0); Eosinophils # 0.1 K/mm3 (0.0-0.4); Eosinophils % 1.2 % (0.1-12.0); Hematocrit 38.5 % (42.0-52.0); Hemoglobin 11.9 g/dL (14.1-18.0); Lymphocytes # 0.9 K/mm3 (0.7-4.5); Lymphocytes % 8.4 % (10-50); Mean Corpuscular HGB Conc 31.1 g/dL (31.8-35.4); Mean Corpuscular Hemoglobin 29.7 pg (27.0-31.2); Mean Corpuscular Volume 95.5 fl (80-94); Mean Platelet Volume 9.1 fl (7.4-10.4); Monocytes # 0.6 K/mm3 (0.1-1.0); Monocytes % 5.4 % (1.7-9.3); Neutrophils # 8.9 K/mm3 (1.8-7.8); Neutrophils % 84.9 % (37.0-80.0); Platelet Count 55 K/mm3 (142-424); Red Blood Count 4.03 M/mm3 (4.60-6.20); Red Cell Distribution Width 14.5 % (11.5-17.5); White Blood Count 10.5 K/mm3 (4.8-10.8)
[2018-10-28 07:03] LABS: Anion Gap 5.3 mEq/L (5-15); Calcium 8.3 mg/dL (8.5-10.1); Potassium 4.3 mmoL/L (3.5-5.1)
--- NOTE | 2018-10-28 08:15 | Pharmacy Consult Notes ---
- Pharmacy Consult Date: 10/28/18 Time: 08:14 Referring provider: DR. LERMA Reason for Consult:: GENTAMICIN DOSING Allergies and ADEs:: Allergies Allergy/AdvReac Type Severity Reaction Status Date / Time morphine Allergy Unknown hallucinati Verified 08/23/18 15:14 ons Home Medications:: Home Medications Medication Instructions Recorded Confirmed Type Acetaminophen [Tylenol 500mg 500 mg PO Q6HP PRN tab 05/27/18 10/24/18 Rx tablet] Hydrocod/Acet 5/325 mg [[place] 1 tab PO Q6HP PRN #20 tab 05/27/18 10/24/18 Rx 5/325mg tablet] Aspirin 81 mg PO DAILY 10/24/18 10/24/18 History Furosemide [Lasix 40mg tablet] 40 mg PO DAILY 10/24/18 10/24/18 History Gabapentin [Neurontin 100mg 100 mg PO TID 10/24/18 10/24/18 History cap] Insulin Lispro [HumaLOG 100 5 unit SQ HS 10/24/18 10/24/18 History units/mL 3mL vial (SSI)] Levalbuterol HCl [Xopenex 1.25 mg IH TIDRT 10/24/18 10/24/18 History 1.25mg/3mL neb] Metoprolol Tartrate [Lopressor 50 mg PO BID 10/24/18 10/24/18 History 50mg tablet] Polyethylene Glycol 3350 [Miralax 17 gm PO DAILY 10/24/18 10/24/18 History 17gm Packet] Potassium Chloride [Klor-con 20 20 meq PO DAILY 10/24/18 10/24/18 History mEq tablet] Height: 1.83 m Weight: 111.584 kg Laboratory Results:: Laboratory Results - last 24 hr 10/24/18 07:58: POC Glucose 128 H 10/24/18 08:08: Urine Color Red, Urine Appearance Turbid, Urine pH 8.5, Ur Specific [place] <= 1.005, Urine Protein 2+, Urine Glucose (UA) Negative, Urine Ketones Negative, Urine Blood 3+, Urine Nitrate Negative, Urine Bilirubin Negative, Urine Urobilinogen 2.0, Ur Leukocyte Esterase Trace, Urine RBC Tntc, Urine WBC 10-20, Ur Squamous Epith Cells Occasional, Urine Bacteria 4+ 02/21/19 11:32: POC Glucose 111 H 10/27/18 16:52: POC Glucose 91 10/27/18 21:06: POC Glucose 106 10/28/18 06:08: POC Glucose 88 10/28/18 06:10: Sodium 147 H, Potassium 4.3, Chloride 113 H, Carbon Dioxide 33 H , Anion Gap 5.3, BUN 21 H D, Creatinine 0.91 D, Estimated Creat Clear 113, Estimated GFR 83, Est GFR ( Amer) 101 D, Glucose 95, Calcium 8.3 L 10/28/18 06:10: WBC 10.5, RBC 4.03 L, Hgb 11.9 L, Hct 38.5 L, MCV 95.5 H, MCH 29.7, MCHC 31.1 L, RDW 14.5, Plt Count 55 L, MPV 9.1, Neut % (Auto) 84.9 H, Lymph % (Auto) 8.4 L, [place] % (Auto) 5.4, Eos % (Auto) 1.2, Baso % (Auto) 0.1, Neut # (Auto) 8.9 H, Lymph # (Auto) 0.9, [place] # (Auto) 0.6, Eos # (Auto) 0.1, Baso # (Auto) 0.0 Medical History: Reports:: Cancer, Cardiomyopathy, Congestive Heart Failure, Chronic Obstructive Pulmonary Disease (COPD) (Oxygen requiring,), Diabetes Mellitus Type 1, Diabetes Mellitus Type 2 (Insulin requiring), Hyperlipidemia, Hypertension Denies:: Internal Pacemaker, MRSA Assessment and Plan (1) Pneumonia Current visit: Yes Status: Acute Category: Medical Code(s): J18.9 - Pneumonia, unspecified organism (2) Sepsis Current visit: Yes Status: Acute Category: Medical Code(s): A41.9 - Sepsis, unspecified organism (3) Urinary tract infection Current visit: Yes Status: Acute Qualifiers: Urinary tract infection type: acute cystitis Hematuria presence: with hematuria Qualified Code(s): N30.01 - Acute cystitis with hematuria Category: Medical Code(s): N39.0 - Urinary tract infection, site not specified (4) Acute on chronic renal failure Problem details: Labs in 3 days, avoid nephrotoxic's Current visit: No Status: Acute Qualifiers: Acute renal failure type: with other specified pathological lesion Chronic kidney disease stage: stage 3 (moderate) Qualified Code(s): N17.8 - Other acute kidney failure; N18.3 - Chronic kidney disease, stage 3 (moderate) Category: Medical Code(s): N17.9 - Acute kidney failure, unspecified; N18.9 - Chronic kidney disease, unspecified (5) Atrial fibrillation with RVR Problem details: Continue diltiazem transition to long-acting 120 mg daily -Reevaluate anticoagulation during follow-up Current visit: No Status: Acute Category: Medical Code(s): I48.91 - Unspecified atrial fibrillation (6) Renal mass Problem details: The diagnosis, follow-up with Dr. Brooks Current visit: No Status: Chronic Category: Medical Code(s): N28.89 - Other specified disorders of kidney and ureter (7) Hyperkalemia Current visit: Yes Status: Acute Category: Medical Code(s): E87.5 - Hyperkalemia (8) Gross hematuria Current visit: Yes Status: Acute Category: Medical Code(s): R31.0 - Gross hematuria (9) Urethral trauma Current visit: Yes Status: Acute Category: Medical Code(s): S37.30XA - Unspecified injury of urethra, initial encounter - Assessment and plan all Dx Assessment and Plan for all problems:: BASED ON PATIENT'S FACTORS, RECOMMEND STARTING GENTAMICIN 480 MG Q24H AT THIS TIME. PHARMACY WILL FOLLOW DAILY AND ADJUST APPROPRIATE. JOSE LUIS VEGA, PHARMD
--- NOTE | 2018-10-28 08:28 | Discharge Summary ---
General - General Admission date:: 10/24/18 Discharge date: 10/28/18 HPI HPI: 68-year-old white male with chronic lung disease, end-stage emphysema-chronic renal insufficiency and renal mass suspicious for carcinoma who has been a resident of a local long term over the past couple of months for strengthening/ongoing medical care who was in his normal state of compromised health until yesterday afternoon when he began to have some effusion and fevers. His noticed that his Polo catheter seem discolored and apparently the Polo catheter was replaced by nursing staff at the long term but this replacement was apparently secured in the urethra. Patient this morning became lethargic, obtunded, febrile and was brought to the emergency department here. Polo catheter was noted to be in the urethra and was placed, significant hematuria was observed, evidence of leukocytes and nitrates in urine dipstick was noted and patient had infiltrates on chest x-ray along with fever, tachycardia and low blood pressure as well as high lactic acid levels. Initial diagnosis of sepsis possibly from UTI versus pneumonia was entertained, patient has been placed on broad-spectrum antibiotics, fluid boluses and levofed and transition to floor bed. Hospital Course Hospital Course: Patient admitted as no low and sepsis protocol was initiated with broad-spectrum antibiotics. Patient's hematuria slowly resolved with Polo catheterization and bladder irrigation -- urology consult reviewed and appreciated. Hemodynamic status improved nicely Cultures from urine grew Providencia species E. coli, sensitive to several antibiotic choices, blood cultures grew 3 different gram-negative rods, with official education pending. Patient had medically improved on current medic therapy with normalized white c ounts. His creatinine is also normalized with correction of his bladder outlet obstruction from the inappropriately placed Polo catheter from the long term and patient improving and has been to take p.o. intake. PT/OT consultation from yesterday. Plan will be to transfer to long term today with the following skilled care orders: 1. He will need Cefipime 1 g twice daily for 10 more days along with gentamicin 480 mg daily for the next 10 days. 2. He will need CBC/CMP on Wednesday, 10/11, along with gentamicin peak and trough levels. 3. Polo catheter will need to remain in place without change for the next 2 weeks. 4. low intensity sliding scale insulin. 5. Soft mechanical diet with Ensure at each meal 6. PT/OT evaluation. He will continue to maintain DNR status. We will see him on regular long term next week. Objective Vital signs: Temp Pulse Resp BP Pulse Ox 98.2 F 104 H 20 122/89 94 L 10/28/18 04:00 10/28/18 06:34 10/28/18 04:00 10/28/18 04:00 10/28/18 06:34 Narrative: Patient is awake. Alert. Oriented. A little fuzzy about the date but vastly improved over his baseline. Lungs have rhonchi but good treatment. Heart rate regular. Abdomen soft and nontender. No edema noted. Good perfusion in extremities. Polo catheter in good patient. Draining clear but lightly stained urine. Able to all extremities but very weak. Results Labs on day of discharge: Labs from last 24 hours 10/28/18 10/28/18 10/28/18 06:10 06:10 06:08 WBC 10.5 RBC 4.03 L Hgb 11.9 L Hct 38.5 L MCV 95.5 H MCH 29.7 MCHC 31.1 L RDW 14.5 Plt Count 55 L MPV 9.1 Neut % (Auto) 84.9 H Lymph % (Auto) 8.4 L [place] % (Auto) 5.4 Eos % (Auto) 1.2 Baso % (Auto) 0.1 Neut # (Auto) 8.9 H Lymph # (Auto) 0.9 [place] # (Auto) 0.6 Eos # (Auto) 0.1 Baso # (Auto) 0.0 Sodium 147 H Potassium 4.3 Chloride 113 H Carbon Dioxide 33 H Anion Gap 5.3 BUN 21 H D Creatinine 0.91 D Estimated Creat Clear 113 Estimated GFR 83 Est GFR ( Amer) 101 D Glucose 95 POC Glucose 88 Calcium 8.3 L Urine Color Urine Appearance Urine pH Ur Specific [place] Urine Protein Urine Glucose (UA) Urine Ketones Urine Blood Urine Nitrate Urine Bilirubin Urine Urobilinogen Ur Leukocyte Esterase Urine RBC Urine WBC Ur Squamous Epith Cells Urine Bacteria 10/27/18 10/27/18 10/27/18 21:06 16:52 11:32 WBC RBC Hgb Hct MCV MCH MCHC RDW Plt Count MPV Neut % (Auto) Lymph % (Auto) [place] % (Auto) Eos % (Auto) Baso % (Auto) Neut # (Auto) Lymph # (Auto) [place] # (Auto) Eos # (Auto) Baso # (Auto) Sodium Potassium Chloride Carbon Dioxide Anion Gap BUN Creatinine Estimated Creat Clear Estimated GFR Est GFR ( Amer) Glucose POC Glucose 106 91 111 H Calcium Urine Color Urine Appearance Urine pH Ur Specific [place] Urine Protein Urine Glucose (UA) Urine Ketones Urine Blood Urine Nitrate Urine Bilirubin Urine Urobilinogen Ur Leukocyte Esterase Urine RBC Urine WBC Ur Squamous Epith Cells Urine Bacteria 10/24/18 10/24/18 08:08 07:58 WBC RBC Hgb Hct MCV MCH MCHC RDW Plt Count MPV Neut % (Auto) Lymph % (Auto) [place] % (Auto) Eos % (Auto) Baso % (Auto) Neut # (Auto) Lymph # (Auto) [place] # (Auto) Eos # (Auto) Baso # (Auto) Sodium Potassium Chloride Carbon Dioxide Anion Gap BUN Creatinine Estimated Creat Clear Estimated GFR Est GFR ( Amer) Glucose POC Glucose 128 H Calcium Urine Color Red Urine Appearance Turbid Urine pH 8.5 Ur Specific [place] <= 1.005 Urine Protein 2+ Urine Glucose (UA) Negative Urine Ketones Negative Urine Blood 3+ Urine Nitrate Negative Urine Bilirubin Negative Urine Urobilinogen 2.0 Ur Leukocyte Esterase Trace Urine RBC Tntc Urine WBC 10-20 Ur Squamous Epith Cells Occasional Urine Bacteria 4+ Preliminary micro results at discharge 10/24/18 08:04 Blood Culture - Preliminary Blood Gram Negative Rods Gram Negative Rods#2 Gram Negative Rods#3 10/24/18 08:04 Blood Culture - Preliminary Blood Gram Negative Rods Gram Negative Rods#2 Gram Negative Rods#3 DS: Diagnosis - Discharge Diagnosis (1) Pneumonia Status: Acute (2) Sepsis Status: Acute (3) Urinary tract infection Status: Acute (4) Acute on chronic renal failure Status: Resolved Problem details: Labs in 3 days, avoid nephrotoxic's (5) Atrial fibrillation with RVR Status: Chronic Problem details: Continue diltiazem transition to long-acting 120 mg daily -Reevaluate anticoagulation during follow-up (6) Renal mass Status: Chronic Problem details: The diagnosis, follow-up with Dr. Brooks (7) Hyperkalemia Status: Resolved (8) Gross hematuria Status: Chronic (9) Urethral trauma Status: Chronic Discharge Plan - Patient Discharge Instructions ACTIVITY: Continue current activity DIET: continue same diet Patient Instructions: How to Care for Your Polo Catheter -- Male, DI for Pneumonia -- Adult, DI for Urinary Tract Infection (UTI), Peripherally Inserted Central Catheter, DI for Hematuria, Peripherally Inserted Central Catheter Infections, DI for Sepsis -- Adult - Follow up Plan Follow up with: Maia Doan APRN [Nurse Practitioner] - Disposition: er [facility] Home Medications: Home Medications Medication Instructions Recorded Confirmed Type Acetaminophen [Tylenol 500mg 500 mg PO Q6HP PRN tab 05/27/18 10/24/18 Rx tablet] Hydrocod/Acet 5/325 mg [[place] 1 tab PO Q6HP PRN #20 tab 05/27/18 10/24/18 Rx 5/325mg tablet] Aspirin 81 mg PO DAILY 10/24/18 10/24/18 History Furosemide [Lasix 40mg tablet] 40 mg PO DAILY 10/24/18 10/24/18 History Gabapentin [Neurontin 100mg 100 mg PO TID 10/24/18 10/24/18 History cap] Insulin Lispro [HumaLOG 100 5 unit SQ HS 10/24/18 10/24/18 History units/mL 3mL vial (SSI)] Levalbuterol HCl [Xopenex 1.25 mg IH TIDRT 10/24/18 10/24/18 History 1.25mg/3mL neb] Metoprolol Tartrate [Lopressor 50 mg PO BID 10/24/18 10/24/18 History 50mg tablet] Polyethylene Glycol 3350 [Miralax 17 gm PO DAILY 10/24/18 10/24/18 History 17gm Packet] Potassium Chloride [Klor-con 20 20 meq PO DAILY 10/24/18 10/24/18 History mEq tablet] Cefepime HCl in Dextrose 5 % 1 gm IV BID 10 Days piggyback 10/28/18 Rx [Cefepime-Dextrose 1 gm/50 ml] Gentamicin Sulf/Sodium Citrate 480 mcg IV DAILY 10 Days vial 10/28/18 Rx [Gentamicin 320 Mcg/ml-Sod Citr] Prescriptions/Medication Reconciliation: New Cefepime HCl in Dextrose 5 % [Cefepime-Dextrose 1 gm/50 ml] 1 gm IV BID 10 Days piggyback Gentamicin Sulf/Sodium Citrate [Gentamicin 320 Mcg/ml-Sod Citr] 480 mcg IV DAILY 10 Days vial Continue Acetaminophen [Tylenol 500mg tablet] 500 mg PO Q6HP PRN tab PRN Reason: As Needed For Fever Or Pain Metoprolol Tartrate [Lopressor 50mg tablet] 50 mg PO BID Levalbuterol HCl [Xopenex 1.25mg/3mL neb] 1.25 mg IH TIDRT Gabapentin [Neurontin 100mg cap] 100 mg PO TID Discontinued Hydrocod/Acet 5/325 mg [[place] 5/325mg tablet] 1 tab PO Q6HP PRN #20 tab PRN Reason: Moderate Pain Insulin Lispro [HumaLOG 100 units/mL 3mL vial (SSI)] 5 unit SQ HS Furosemide [Lasix 40mg tablet] 40 mg PO DAILY Polyethylene Glycol 3350 [Miralax 17gm Packet] 17 gm PO DAILY Aspirin 81 mg PO DAILY Potassium Chloride [Klor-con 20 mEq tablet] 20 meq PO DAILY
== END 2018-10-28 14:48 | DRG 871 ==
LOC: ER 08:04 → 2ND 11:51
PROVIDERS: ADMIT Internal Medicine Adolescent Medicine; ATTEND Internal Medicine Adolescent Medicine
CPT/HCPCS: 36415; 36569; 70450; 71010; 71045; 72170; 74176; 80048; 80053; 80170; 81001; 82550; 82553; 82803; 82962; 83605; 84436; 84443; 84479; 84484; 85007; 85025; 86850; 87040; 87077; 87086; 87088; 87186; 87275; 87276; 87430; 87507; 93005; 94640; 94761; 96365; 96367; 96375; 97163; 97530; 99285; C1751; J0692; J1956; J2405; J2543

== ENCOUNTER → 2018-10-29 13:16 | Outpatient (REF) | payer MEDICARE, MEDICAID, SELFPAY ==
[2018-10-29 14:08] LABS: Gentamicin,Trough 0.5 ug/mL (0.0-2.0)
== END ==
LOC: LAB.DROPOF 13:16
PROVIDERS: Visit Provider Internal Medicine Adolescent Medicine
DX: J18.9 Pneumonia, unspecified organism (principal); A41.9 Sepsis, unspecified organism; N39.0 Urinary tract infection, site not specified
CPT/HCPCS: 80170

== ENCOUNTER → 2018-11-05 14:06 | Outpatient (CLI) | payer MEDICARE, MEDICAID, SELFPAY ==
[2018-11-05 14:55] LABS: Gentamicin,Trough 1.7 ug/mL (0.0-2.0)
== END ==
PROVIDERS: Visit Provider Internal Medicine Adolescent Medicine
DX: J18.9 Pneumonia, unspecified organism (principal); N39.0 Urinary tract infection, site not specified; A41.9 Sepsis, unspecified organism; Z51.81 Encounter for therapeutic drug level monitoring
CPT/HCPCS: 80170

== ENCOUNTER 2019-04-09 00:23 | Observation (INO) ==
[2019-04-09 00:42] LABS: Appearance,Urine TURBID (Clear); Bilirubin,Urine Negative (Negative); Blood, Urine 3+ (Negative); Color,Urine RED (Yellow); Glucose,Urine (UA) Negative (Negative); Ketones,Urine TRACE (Negative); Leukocyte Esterase,Urine 2+ (Negative); Microscopic, Urine URINE MICROSCOPIC (MICROSCOPIC); Protein,Urine 3+ (Negative); Specific Gravity, Urine 1.025 (1.005-1.030); Urobilinogen,Urine 0.2 EU/dl (0.2)
[2019-04-09 00:43] LABS: RBC,Urine TNTC #/hpf (0-3); WBC,Urine 50-100 #/hpf (0-3)
[2019-04-09 01:14] LABS: Basophils % 0.2 % (0.1-2.0); Eosinophils # 0.1 K/mm3 (0.0-0.4); Eosinophils % 0.6 % (0.1-12.0); Lymphocytes # 1.2 K/mm3 (0.7-4.5); Lymphocytes % 7.2 % (10-50); Mean Corpuscular HGB Conc 30.1 g/dL (31.8-35.4); Mean Corpuscular Volume 93.6 fl (80-94); Mean Platelet Volume 6.8 fl (7.4-10.4); Monocytes # 0.9 K/mm3 (0.1-1.0); Monocytes % 5.5 % (1.7-9.3); Neutrophils # 14.5 K/mm3 (1.8-7.8); Neutrophils % 86.4 % (37.0-80.0); Platelet Count 286 K/mm3 (142-424); Red Blood Count 5.34 M/mm3 (4.60-6.20); Red Cell Distribution Width 14.8 % (11.5-17.5); White Blood Count 16.8 K/mm3 (4.8-10.8)
[2019-04-09 01:33] LABS: Alanine Aminotransferase 21 U/L (12-78); Albumin Level 2.9 gm/dL (3.4-5.0); Albumin/Globulin Ratio 0.7 (1.1-1.8); Alkaline Phosphatase 78 U/L (46-116); Aspartate Amino Transferase 21 U/L (15-37); Bilirubin,Total 0.5 mg/dL (0.2-1.0); Blood Urea Nitrogen 39 mg/dL (7-18); Carbon Dioxide 36 mmol/L (21.0-32.0); Chloride 103 mmol/L (98-107); Globulin 4.1 gm/dl (1.3-3.2)
--- NOTE | 2019-04-09 01:42 | Emergency Department Note ---
ED Disposition Clinical Impression: Acute delirium, TRAN (acute kidney injury), Hyperkalemia, Diabetes mellitus type 2 in nonobese, Gross hematuria UTI (urinary tract infection) Qualifiers: Urinary tract infection type: acute cystitis Hematuria presence: with hematuria Qualified Code(s): N30.01 - Acute cystitis with hematuria A-fib Qualifiers: Atrial fibrillation type: chronic Qualified Code(s): I48.2 - Chronic atrial fibrillation Disposition: Admitted as Observation Condition on Discharge: Fair Instructions: DI for Altered Mental Status Referrals: Dami Finch MD [Primary Care Provider] - - Critical Care Critical Care Time: No Attestation: On 04/09/19, the high probability of a clinically significant, sudden or life threatening deterioration of the following system(s) required my full and direct attention, intervention and personal management. The time I documented below is in addition to time spent performing reported procedures but includes the following listed in this critical care notation. Medical Decision Making - Medical Records Medical records reviewed: Yes: I reviewed the patient's medical records. - Carlos Inquiry Pt receiving controlled substance: No Vital Signs: 04/09/19 00:23 04/09/19 01:53 04/09/19 03:53 Temperature 99.2 F Temperature Source Rectal Pulse Rate [Right Radial] 90 89 77 Respiratory Rate 20 18 18 Blood Pressure [Right Arm] 96/51 L 135/73 168/78 H Blood Pressure Mean [Right Arm] 66 93 108 Blood Pressure Source [Right Arm] Blood Pressure Position [Right Arm] 02 Sat by Pulse Oximetry 98 92 L 96 Oxygen Delivery Method Nasal Cannula Nasal Cannula Oxygen Flow Rate (LPM) 3.5 3 04/09/19 04:21 04/09/19 04:40 Temperature Temperature Source Pulse Rate [Right Radial] 105 H 100 H Respiratory Rate 18 20 Blood Pressure [Right Arm] 99/52 L 96/55 L Blood Pressure Mean [Right Arm] 67 68 Blood Pressure Source [Right Arm] Automatic Cuff Automatic Cuff Blood Pressure Position [Right Arm] Sitting Supine 02 Sat by Pulse Oximetry 97 100 Oxygen Delivery Method Nasal Cannula Nasal Cannula Oxygen Flow Rate (LPM) 2 2 - Lab Data Lab results reviewed: Yes: I reviewed the patient's lab results. Lab Results 04/09/19 00:32: Urine Color Red, Urine Appearance Turbid, Urine pH 7.0, Ur Specific [place] 1.025, Urine Protein 3+, Urine Glucose (UA) Negative, Urine Ketones Trace, Urine Blood 3+, Urine Nitrate Positive, Urine Bilirubin Negative, Urine Urobilinogen 0.2, Ur Leukocyte Esterase 2+ A, Urine RBC Tntc, Urine WBC 50-100 04/09/19 00:54: WBC 16.8 H, RBC 5.34, Hgb 15.0, Hct 50.0, MCV 93.6, MCH 28.2, MCHC 30.1 L, RDW 14.8, Plt Count 286, MPV 6.8 L, Neut % (Auto) 86.4 H, Lymph % (Auto) 7.2 L, [place] % (Auto) 5.5, Eos % (Auto) 0.6, Baso % (Auto) 0.2, Neut # (Auto) 14.5 H, Lymph # (Auto) 1.2, [place] # (Auto) 0.9, Eos # (Auto) 0.1, Baso # (Auto) 0.0, Total Counted 100, Neutrophils % (Manual) 80 H, Band Neutrophils % 12.0 H, Lymphocytes % (Manual) 5 L, Monocytes % (Manual) 3, Platelet Estimate Normal, RBC Morphology Not Reportable, Hypochromasia 1+ 04/09/19 00:54: Lactate 3.7 H 04/09/19 02:25: Sodium 143, Potassium 6.3 H*, Chloride 103, Carbon Dioxide 36 H, Anion Gap 10.3, BUN 39 H, Creatinine 2.61 H, Estimated Creat Clear 39, Estimated GFR 25 L, Est GFR ( Amer) 30 L, Glucose 164 H, Calcium 9.2, Total Bilirubin 0.5, AST 21, ALT 21, Alkaline Phosphatase 78, Troponin I < 0.02, C- Reactive Protein 22.7 H, Total Protein 7.0, Albumin 2.9 L, Globulin 4.1 H, Albumin/Globulin Ratio 0.7 L 04/09/19 02:25: ESR 11 Result diagrams: 04/09/19 00:54 04/09/19 02:25 Orders (Tests/Meds): ED MEDICATIONS Generic Name Dose Route Start Last Admin Trade Name Freq PRN Reason Stop Dose Admin Sodium Chloride 1,000 mls @ 999 mls/hr 04/09/19 00:45 04/09/19 01:04 Sod Chlor 0.9% 1000ml Bag IV 04/09/19 01:45 999 mls/hr .Q1H1M OFELIA Administration Ceftriaxone Sodium 1 gm/ 50 mls @ 100 mls/hr 04/09/19 04:16 04/09/19 04:33 Sodium Chloride IV 04/09/19 04:45 100 mls/hr ONCE ONE Administration Protocol Sodium Chloride 1,000 mls @ 999 mls/hr 04/09/19 04:30 04/09/19 04:34 Sod Chlor 0.9% 1000ml Bag IV 04/09/19 05:30 999 mls/hr .Q1H1M OFELIA Administration Discontinued Medications Generic Name Dose Route Start Last Admin Trade Name Freq PRN Reason Stop Dose Admin Albuterol Sulfate 2.5 mg 04/09/19 04:19 04/09/19 04:32 Albuterol 0.083% 2.5mg/3ml Neb IH 04/09/19 04:20 2.5 mg ONCE ONE Administration Dextrose 50 ml 04/09/19 04:19 04/09/19 04:33 Dextrose 50% 50ml Syringe IVP 04/09/19 04:20 50 ml ONCE ONE Administration Insulin Human Regular 5 unit 04/09/19 04:19 04/09/19 04:32 Humulin R Insulin 100 Units/Ml 10ml Vial IVP 04/09/19 04:20 5 unit ONCE ONE Administration Sodium Polystyrene Sulfonate 15 gm 04/09/19 04:19 04/09/19 04:32 Kayexalate 15gm/60ml Bottle PO 04/09/19 04:20 15 gm ONCE ONE Administration ORDERS Category Date Time Status CT abdomen pelvis wo con Stat Cat Scan 04/09/19 00:[address] head/brain wo con Stat Cat Scan 04/09/19 00:33 Taken XR chest portable Stat Exams 04/09/19 00:32 Taken Blood Culture Stat Micro 04/09/19 00:54 Received Urine Culture Stat Micro 04/09/19 00:32 Received - Radiology Data #1 Image(s): Chest Image Reviewed: Yes I reviewed the patient's radiology image Preliminary Findings: Abnormal (chronic changes ) - CT Data CT Scan: Head, Abdomen, Pelvis Time Received: 04:[address] Reviewed: Yes: I have viewed the radiologist's interpretation Preliminary Findings: Abnormal (changes to bladder and abn ct with possible mass and has changes to brain ct - rad feels not blood ) - ECG Data Tracing #1 Arrhythmias present: afib Ischemic changes: non-specific ST-T wave changes ECG compared to prior tracings: there are no significant changes Male Urogenital HPI - General Chief complaint: Altered Mental Status Stated complaint: altered mental status Time Seen by Provider: 04/09/19 00:35 Mode of Arrival: EMS Source of Information: Patient, Relative, EMS, Medical Record Limitations: No Limitations Description of Symptoms (Recalled from ER Triage Doc. by RN): pt presents to the ed with c/o hematuria, altered mental status and low sao2 as reported by [facility]. - History of Present Illness HPI Narrative: wm sent from [facility] for eval of hematuria and change in mental status- pt has chronic martin - no fever or trauma - MD Complaint: other (hematuria) Onset (ago): hour(s) Duration: constant Severity: moderate Reports: blood in urine - Related Data Sexually active: No Home Medications Medication Instructions Recorded Confirmed Gabapentin [Neurontin 100mg 100 mg PO TID 10/24/18 04/09/19 cap] Levalbuterol HCl [Xopenex 1.25 mg IH TIDRT 10/24/18 04/09/19 1.25mg/3mL neb] Metoprolol Tartrate [Lopressor 50 mg PO BID 10/24/18 04/09/19 50mg tablet] loperamide 2 mg capsule 2 - 4 mg PO Q4H PRN 11/08/18 04/09/19 Escitalopram Oxalate [Lexapro] 20 mg PO DAILY 04/09/19 04/09/19 Saccharomyces Boulardii [Florastor] 250 mg PO DAILY 04/09/19 04/09/19 Previous Rx's Medication Instructions Recorded Acetaminophen [Tylenol 500mg 500 mg PO Q6HP PRN tab 05/27/18 tablet] Allergies Allergy/AdvReac Type Severity Reaction Status Date / Time morphine Allergy Unknown hallucinati Verified 04/09/19 00:32 ons [facility] History - Hepatitis A Screen Drug use history?: No High risk sexual behaviors?: No History of sexually transmitted infection?: No Currently employed?: No Childcare worker?: No Do you have indoor plumbing?: Yes Do you have electricity?: Yes Attestation statement:: This patient has been screened for Hepatitis A risk factors. I have reviewed the patient's past medical history: Yes Medical History: Reports:: Atrial Fibrillation, Cancer, Cardiomyopathy, Congestive Heart Failure, Chronic Obstructive Pulmonary Disease (COPD), Diabetes Mellitus Type 1, Diabetes Mellitus Type 2, Hyperlipidemia, Hypertension Denies:: Internal Pacemaker, MRSA Laterality Cases: Left: Arthroscopy Shoulder Other Surgeries: Yes: Cancer Surgery (skin removal), Cholecystectomy, Skin Cancer Excision, Other. No: Pacemaker Amputation: No Fractures: Yes - Social History Smoking Status: Unknown if ever smoked Tobacco Type: cigarettes # Packs/Day (cigarettes): 1 #Yrs smoked (if former smoker): 42 Alcohol Intake: never Alcohol Intake Frequency:: other Substance Use Type: denies use Occupational Status: disabled Housing: [facility] Household Members: spouse, children Family Hx:: Unable to obtain ROS Obtained: Yes All systems reviewed & no additional complaints - Constitutional Constitutional: Denies fever(s) - Eyes Eyes: Denies change in vision - ENT Ears, Nose, Mouth, and Throat: Denies sore throat - Cardiovascular Cardiovascular: Denies chest pain - Respiratory Respiratory: No cough - Gastrointestinal Gastrointestingal: Denies: abdominal pain - Genitourinary Male Genitourinary: Reports as per HPI, Reports hematuria, Reports other (chronic martin) - Musculoskeletal Musculoskeletal: Denies joint swelling - Integumentary/Breasts Skin/Breast: Denies rash - Neurologic Neurologic: Denies confusion, Denies focal weakness, Denies seizure-like activity Physical Exam - General General appearance: alert - Head Head exam: normocephalic - Eye Eye exam: Present: PERRL, EOMI - ENT ENT exam: Present: mucous membranes dry - Neck Neck exam: Present: trachea midline - Respiratory Respiratory exam: Absent: respiratory distress - Cardiovascular Cardiovascular exam: Present: irregular rhythm, systolic murmur, +S4 - Abdominal Exam Abdominal exam: Present: soft. Absent: tenderness - exam: Present: other (has martin with hematuria ) - Extremities Exam Extremities exam: Present: full ROM, pedal edema - Neurological Exam Neurological exam: Present: alert, CN II-XII intact, other (has periods of confusion ) - Skin Skin exam: Absent: rash
[2019-04-09 02:06] LABS: Hypochromasia 1+; Lymphocytes % 5 % (10-50); Monocytes % 3 % (2-9); Neutrophils % 80 % (42-76); Total Cells Counted 100
[2019-04-09 02:43] LABS: Anion Gap 10.3 mEq/L (5-15); Sodium 143 mmol/L (136-145)
[2019-04-09 02:52] LABS: Calcium 9.2 mg/dL (8.5-10.1); Glucose 164 mg/dL (74-106)
[2019-04-09 02:59] LABS: C-Reactive Protein 22.7 mg/dL (0.0-0.9)
[2019-04-09 07:11] LABS: Basophils % 0.1 % (0.1-2.0); Eosinophils % 0.2 % (0.1-12.0); Hematocrit 44.4 % (42.0-52.0); Lymphocytes # 0.9 K/mm3 (0.7-4.5); Lymphocytes % 7.1 % (10-50); Mean Corpuscular HGB Conc 29.7 g/dL (31.8-35.4); Mean Corpuscular Volume 92.9 fl (80-94); Mean Platelet Volume 6.9 fl (7.4-10.4); Monocytes # 1.1 K/mm3 (0.1-1.0); Monocytes % 8.2 % (1.7-9.3); Neutrophils # 11.1 K/mm3 (1.8-7.8); Neutrophils % 84.5 % (37.0-80.0); Platelet Count 252 K/mm3 (142-424); Red Blood Count 4.77 M/mm3 (4.60-6.20); Red Cell Distribution Width 14.8 % (11.5-17.5); White Blood Count 13.1 K/mm3 (4.8-10.8)
[2019-04-09 07:13] LABS: Hemoglobin 13.2 g/dL (14.1-18.0)
[2019-04-09 07:18] LABS: Anion Gap 6.7 mEq/L (5-15); Calcium 9.2 mg/dL (8.5-10.1)
--- NOTE | 2019-04-09 08:14 | History & Physical Report ---
*Admission Date: 04/09/19 *Chief complaint: Mental status change/dehydration/urinary tract infection *History of present illness: 68-year-old with multiple medical problems including severe urinary retention, chronic hematuria, recurrent urinary tract infections, diabetes, obesity, and renal mass, probable renal cell cancer but unable to be resected because of patient's significant cardiac comorbidities, who was brought to the emergency department because of cloudy urine, mental status change and confusion. ER work-up revealed significant urinary tract infection with evidence of pyelonephritis. Leukocytosis. Also revealed acute kidney injury. CT scan of head showed new changes, somewhat poorly defined, consistent with either ischemic disease versus metastatic disease, as well as enlarging renal mass on CT scan. Admitted to hospital for further diagnostic testing and treatment of his severe [facility] acquired urinary tract infection. [facility] History I have reviewed the patient's past medical history: Yes Medical History: Reports:: Atrial Fibrillation, Cancer, Cardiomyopathy (Severe disease with EF less than 30%), Congestive Heart Failure, Chronic Obstructive Pulmonary Disease (COPD), Diabetes Mellitus Type 1, Diabetes Mellitus Type 2, Hyperlipidemia, Hypertension Denies:: Internal Pacemaker, MRSA *Have you ever received a pneumonia vaccine?: Yes *Have you received a flu vaccine this season?: Yes Comment:: Renal mass for 2 years-unable to be resected because of cardiac comorbidities Laterality Cases: Left: Arthroscopy Shoulder Other Surgeries: Yes: Cancer Surgery (skin removal), Cholecystectomy, Skin Cancer Excision, Other. No: Pacemaker Amputation: No Fractures: Yes - *Social History Educational Level: Completed College Smoking Status: Unknown if ever smoked Tobacco Type: cigarettes # Packs/Day (cigarettes): 1 #Yrs smoked (if former smoker): 42 Alcohol Intake: never Alcohol Intake Frequency:: other Substance Use Type: denies use *Occupational Status:: disabled Housing: [facility] Household Members: spouse, children *Travel in the last 8 weeks: None - Psychiatric History Expresses thoughts of harming self/others: None Suicide Plan Description: No Plan Family Hx:: No significant family history, Non-contributory Review of Systems - Review of Systems Review of systems:: pertinent systems reviewed and negative unless documented below - Constitutional Denies anorexia, Denies body ache(s), Denies fatigue - Eyes Denies blurry vision - ENT Denies abnormal hearing, Denies poor balance - *Cardiovascular Reports shortness of breath, Reports shortness of breath with activity, Denies excessive sweating - *Respiratory Reports cough, Denies change in phlegm color, Denies chest congestion - *Gastrointestinal Reports abdominal pain, Denies change in stools - *Genitourinary Reports blood in urine - Integumentary/Breasts Denies acne, Denies hair loss - *Neurologic Denies confusion, Denies localized weakness, Denies seizure-like activity Meds Home Medications Medication Instructions Recorded Confirmed Type Acetaminophen [Tylenol 500mg 500 mg PO Q6HP PRN tab 05/27/18 04/09/19 Rx tablet] Gabapentin [Neurontin 100mg 100 mg PO TID 10/24/18 04/09/19 History cap] Levalbuterol HCl [Xopenex 1.25 mg IH TIDRT 10/24/18 04/09/19 History 1.25mg/3mL neb] Metoprolol Tartrate [Lopressor 50 mg PO BID 10/24/18 04/09/19 History 50mg tablet] loperamide 2 mg capsule 2 - 4 mg PO Q4H PRN 11/08/18 04/09/19 History Escitalopram Oxalate [Lexapro] 20 mg PO DAILY 04/09/19 04/09/19 History Saccharomyces Boulardii [Florastor] 250 mg PO DAILY 04/09/19 04/09/19 History Allergies Allergy/AdvReac Type Severity Reaction Status Date / Time morphine Allergy Unknown hallucinati Verified 04/09/19 00:32 ons Exam Vital signs and Labs for Last 24 Hours: Temp Pulse Resp BP Pulse Ox 98.0 F 108 H 20 93/73 L 94 L 04/09/19 06:00 04/09/19 07:03 04/09/19 07:03 04/09/19 06:00 04/09/19 07:03 Laboratory Results - last 24 hr 04/09/19 00:32: Urine Color Red, Urine Appearance Turbid, Urine pH 7.0, Ur Specific [place] 1.025, Urine Protein 3+, Urine Glucose (UA) Negative, Urine Ketones Trace, Urine Blood 3+, Urine Nitrate Positive, Urine Bilirubin Negative, Urine Urobilinogen 0.2, Ur Leukocyte Esterase 2+ A, Urine RBC Tntc, Urine WBC 50-100 04/09/19 00:54: WBC 16.8 H, RBC 5.34, Hgb 15.0, Hct 50.0, MCV 93.6, MCH 28.2, MCHC 30.1 L, RDW 14.8, Plt Count 286, MPV 6.8 L, Neut % (Auto) 86.4 H, Lymph % (Auto) 7.2 L, [place] % (Auto) 5.5, Eos % (Auto) 0.6, Baso % (Auto) 0.2, Neut # (Auto) 14.5 H, Lymph # (Auto) 1.2, [place] # (Auto) 0.9, Eos # (Auto) 0.1, Baso # (Auto) 0.0, Total Counted 100, Neutrophils % (Manual) 80 H, Band Neutrophils % 12.0 H, Lymphocytes % (Manual) 5 L, Monocytes % (Manual) 3, Platelet Estimate Normal, RBC Morphology Not Reportable, Hypochromasia 1+ 04/09/19 00:54: Lactate 3.7 H 04/09/19 02:25: Sodium 143, Potassium 6.3 H*, Chloride 103, Carbon Dioxide 36 H, Anion Gap 10.3, BUN 39 H, Creatinine 2.61 H, Estimated Creat Clear 39, Estimated GFR 25 L, Est GFR ( Amer) 30 L, Glucose 164 H, Calcium 9.2, Total Bilirubin 0.5, AST 21, ALT 21, Alkaline Phosphatase 78, Troponin I < 0.02, C-Reactive Protein 22.7 H, Total Protein 7.0, Albumin 2.9 L, Globulin 4.1 H, Albumin/Globulin Ratio 0.7 L 04/09/19 02:25: ESR 11 04/09/19 04:47: Lactate 2.5 H 04/09/19 06:35: POC Glucose 107 04/09/19 06:50: WBC 13.1 H, RBC 4.77, Hgb 13.2 L D, Hct 44.4, MCV 92.9, MCH 27.6, MCHC 29.7 L, RDW 14.8, Plt Count 252, MPV 6.9 L, Neut % (Auto) 84.5 H, Lymph % (Auto) 7.1 L, [place] % (Auto) 8.2, Eos % (Auto) 0.2, Baso % (Auto) 0.1, Neut # (Auto) 11.1 H, Lymph # (Auto) 0.9, [place] # (Auto) 1.1 H, Eos # (Auto) 0.0, Baso # (Auto) 0.0 04/09/19 06:50: Sodium 144, Potassium 4.7 D, Chloride 106, Carbon Dioxide 36 H, Anion Gap 6.7, BUN 41 H, Creatinine 2.37 H, Estimated Creat Clear 44, Estimated GFR 28 L, Est GFR ( Amer) 33 L, Glucose 111 H D, Calcium 9.2 04/09/19 06:50: Lactate 2.3 H 04/09/19 07:17: POC Glucose 108 I & O for Last 24 hours: Intake & Output 04/06/19 04/07/19 04/08/19 04/09/19 11:59 11:59 11:59 11:59 Weight 226 lb 6 oz Narrative: Patient is awake. States that he feels better than yesterday in the emergency department. He is alert and oriented x2, a little fuzzy about the date. ENT exam clear, edentulous, no lesions. Lungs have scattered coarse rhonchi at his baseline. Heart rate regular. Abdomen is soft, nontender. No masses palpable. Grossly, cranial nerves are intact, moving all extremities well. Good distal tissue perfusion. Polo catheter is draining creamy purulent urine. Assessment and Plan (1) Renal mass Current visit: Yes Status: Acute Category: Medical Code(s): N28.89 - Other specified disorders of kidney and ureter Possible enlargement. Continue supportive care/palliative care. If brain mass represents metastasis we will need to get hospice care involved. (2) Cardiomyopathy Current visit: Yes Status: Acute Category: Medical Code(s): I42.9 - Cardiomyopathy, unspecified Currently stable on medications. Watch fluid status carefully. (3) Brain mass Current visit: Yes Status: Acute Category: Medical Code(s): G93.89 - Other specified disorders of brain See notes above. CT scan final report pending. Will probably need MRI as an outpatient. (4) TRAN (acute kidney injury) Current visit: Yes Status: Acute Category: Medical Code(s): N17.9 - Acute kidney failure, unspecified Improving this morning. Track tomorrow. (5) Acute delirium Current visit: Yes Status: Acute Category: Medical Code(s): R41.0 - Disorientation, unspecified Improving with treatment of urinary tract infection (6) Urinary tract infection Current visit: Yes Status: Acute Qualifiers: Urinary tract infection type: acute cystitis Hematuria presence: with hematuria Qualified Code(s): N30.01 - Acute cystitis with hematuria Category: Medical Code(s): N39.0 - Urinary tract infection, site not specified Ceftriaxone on board currently. Await culture results (7) Diabetes mellitus type 2 in nonobese Problem details: Resume home regimen at discharge Current visit: Yes Status: Chronic Category: Medical Code(s): E11.9 - Type 2 diabetes mellitus without complications Complicates all aspects of his care. (8) Gross hematuria Current visit: Yes Status: Chronic Category: Medical Code(s): R31.0 - Gross hematuria Improving. Now that IV antibiotics are in system I have asked the nurses to change his Polo catheter.
--- NOTE | 2019-04-09 09:08 | Pharmacy Consult Notes ---
[facility] Pharmacy VTE Monitoring - Patient Demographics Admission date: 04/09/19 Report Date: 04/09/19 Time: 09:08 Allergies/Adverse Reactions: Patient Allergies morphine Allergy (Unknown, Verified 04/09/19 00:32) hallucinations Height: 1.83 m Weight: 102.682 kg Patient Problems: Current Active Problems Diabetes mellitus type 2 in nonobese (Chronic) Urinary tract infection (Acute) Gross hematuria (Chronic) Acute delirium (Acute) A-fib (Acute) TRAN (acute kidney injury) (Acute) Hyperkalemia (Acute) Renal mass (Acute) Cardiomyopathy (Acute) Brain mass (Acute) - VTE Risk Labs: VTE Related Lab Results Hgb 13.2 g/dL (14.1-18.0) L D 04/09/19 06:50 Hct 44.4 % (42.0-52.0) 04/09/19 06:50 Plt Count 252 K/mm3 (142-424) 04/09/19 06:50 BUN 41 mg/dL (7-18) H 04/09/19 06:50 Creatinine 2.37 mg/dL (0.70-1.30) H 04/09/19 06:50 Estimated Creat Clear 44 mL/min (50-200) 04/09/19 06:50 Was VTE Risk Assessment Performed: Yes VTE Score: 4 VTE Risk Level: Low Risk - Prophylaxis VTE Prophylaxis Ordered?: Yes Types of VTE Prophylaxis: TEDS Knee High Location of Applied Device: Bilateral Lower Extremeties
[2019-04-10 07:49] LABS: Basophils % 0.1 % (0.1-2.0); Eosinophils # 0.1 K/mm3 (0.0-0.4); Eosinophils % 1.1 % (0.1-12.0); Hematocrit 46.6 % (42.0-52.0); Hemoglobin 14.4 g/dL (14.1-18.0); Lymphocytes % 9.7 % (10-50); Mean Corpuscular HGB Conc 30.9 g/dL (31.8-35.4); Mean Corpuscular Volume 92.4 fl (80-94); Mean Platelet Volume 7.1 fl (7.4-10.4); Monocytes # 0.9 K/mm3 (0.1-1.0); Monocytes % 8.9 % (1.7-9.3); Neutrophils # 8.4 K/mm3 (1.8-7.8); Neutrophils % 80.1 % (37.0-80.0); Platelet Count 197 K/mm3 (142-424); Red Blood Count 5.04 M/mm3 (4.60-6.20); Red Cell Distribution Width 14.9 % (11.5-17.5); White Blood Count 10.5 K/mm3 (4.8-10.8)
[2019-04-10 07:59] LABS: Albumin Level 2.6 gm/dL (3.4-5.0); Albumin/Globulin Ratio 0.6 (1.1-1.8); Anion Gap 10.5 mEq/L (5-15); Bilirubin,Total 0.5 mg/dL (0.2-1.0); Calcium 9.4 mg/dL (8.5-10.1); Globulin 4.1 gm/dl (1.3-3.2); Total Protein,Serum 6.7 gm/dL (6.4-8.2)
--- NOTE | 2019-04-10 08:19 | Discharge Summary ---
General - General Admission date:: 04/09/19 Discharge date: 04/10/19 HPI HPI: 68-year-old with multiple medical problems including severe urinary retention, chronic hematuria, recurrent urinary tract infections, diabetes, obesity, and renal mass, probable renal cell cancer but unable to be resected because of patient's significant cardiac comorbidities, who was brought to the emergency department because of cloudy urine, mental status change and confusion. ER work-up revealed significant urinary tract infection with evidence of pyelonephritis. Leukocytosis. Also revealed acute kidney injury. CT scan of head showed new changes, somewhat poorly defined, consistent with either ischemic disease versus metastatic disease, as well as enlarging renal mass on CT scan. Admitted to hospital for further diagnostic testing and treatment of his severe custodial acquired urinary tract infection. Hospital Course Hospital Course: Patient was admitted to hospital. Urine culture was obtained, shows gram-negative rods at this juncture, final pathogen identification is pending. CT scan of head showed evidence of mass, consistent with metastatic tumor disease. Does not appear to be consistent with stroke. Given his known renal mass this is most probably a metastasis. Patient's acute kidney injury improved, and antibiotics and IV fluids were continued. This morning patient is confused but pleasant, oriented x1, and able to follow commands. His urine has cleared, vital signs have normalized, and his acute kidney injury has almost resolved and his leukocytosis is improving. Plan will be to DC back to the custodial with intravenous ceftriaxone for 5 more days, 1 g daily, while we await urine culture and sensitivity. He will need to have an MRI of his brain scheduled for the end of the week to follow-up this abnormality on CT scan. I would like a hospice consultation at the custodial. Apparently hospice has been consulted before but because of financial issues that would have meant more [id number] cost of the family hospice had not enrolled the patient. Now that patient has evidence of brain metastases and increasing confusion he certainly is more appropriate for hospice care. DNR status will continue. Objective Vital signs: Temp Pulse Resp BP Pulse Ox 98.0 F 114 H 18 128/68 93 L 04/10/19 04:00 04/10/19 06:31 04/10/19 04:00 04/10/19 04:00 04/10/19 06:31 Narrative: Patient is awake, recognizes me but is extremely confused about where he has been overnight, he states [place]ig[place] at the [place] [facility]. Heart rate regular. Lungs have good air movement, abdomen is soft. Polo catheter draining cloudy but much clearer urine. ENT exam clear. Oropharynx clear. Cranial nerves are nonfocal. Able to move all extremities. Results Labs on day of discharge: Labs from last 24 hours 04/10/19 04/10/19 04/10/19 07:06 07:06 06:27 WBC 10.5 RBC 5.04 Hgb 14.4 Hct 46.6 MCV 92.4 MCH 28.6 MCHC 30.9 L RDW 14.9 Plt Count 197 MPV 7.1 L Neut % (Auto) 80.1 H Lymph % (Auto) 9.7 L [place] % (Auto) 8.9 Eos % (Auto) 1.1 Baso % (Auto) 0.1 Neut # (Auto) 8.4 H Lymph # (Auto) 1.0 [place] # (Auto) 0.9 Eos # (Auto) 0.1 Baso # (Auto) 0.0 Sodium 147 H Potassium 4.5 Chloride 108 H Carbon Dioxide 33 H Anion Gap 10.5 BUN 31 H Creatinine 1.14 D Estimated Creat Clear 91 Estimated GFR 64 Est GFR ( Amer) 78 D Glucose 86 POC Glucose 83 Calcium 9.4 Total Bilirubin 0.5 AST 10 L D ALT 20 Alkaline Phosphatase 78 Total Protein 6.7 Albumin 2.6 L D Globulin 4.1 H Albumin/Globulin Ratio 0.6 L Urine Color Urine Appearance Urine pH Ur Specific [place] Urine Protein Urine Glucose (UA) Urine Ketones Urine Blood Urine Nitrate Urine Bilirubin Urine Urobilinogen Ur Leukocyte Esterase Urine RBC Urine WBC 04/09/19 04/09/19 04/09/19 20:14 16:00 12:14 WBC RBC Hgb Hct MCV MCH MCHC RDW Plt Count MPV Neut % (Auto) Lymph % (Auto) [place] % (Auto) Eos % (Auto) Baso % (Auto) Neut # (Auto) Lymph # (Auto) [place] # (Auto) Eos # (Auto) Baso # (Auto) Sodium Potassium Chloride Carbon Dioxide Anion Gap BUN Creatinine Estimated Creat Clear Estimated GFR Est GFR ( Amer) Glucose POC Glucose 178 H 189 H 131 H Calcium Total Bilirubin AST ALT Alkaline Phosphatase Total Protein Albumin Globulin Albumin/Globulin Ratio Urine Color Urine Appearance Urine pH Ur Specific [place] Urine Protein Urine Glucose (UA) Urine Ketones Urine Blood Urine Nitrate Urine Bilirubin Urine Urobilinogen Ur Leukocyte Esterase Urine RBC Urine WBC 04/09/19 00:32 WBC RBC Hgb Hct MCV MCH MCHC RDW Plt Count MPV Neut % (Auto) Lymph % (Auto) [place] % (Auto) Eos % (Auto) Baso % (Auto) Neut # (Auto) Lymph # (Auto) [place] # (Auto) Eos # (Auto) Baso # (Auto) Sodium Potassium Chloride Carbon Dioxide Anion Gap BUN Creatinine Estimated Creat Clear Estimated GFR Est GFR ( Amer) Glucose POC Glucose Calcium Total Bilirubin AST ALT Alkaline Phosphatase Total Protein Albumin Globulin Albumin/Globulin Ratio Urine Color Red Urine Appearance Turbid Urine pH 7.0 Ur Specific [place] 1.025 Urine Protein 3+ Urine Glucose (UA) Negative Urine Ketones Trace Urine Blood 3+ Urine Nitrate Positive Urine Bilirubin Negative Urine Urobilinogen 0.2 Ur Leukocyte Esterase 2+ A Urine RBC Tntc Urine WBC 50-100 Preliminary micro results at discharge 04/09/19 00:32 Urine Culture - Preliminary Urine,Clean Catch Gram Negative Rods DS: Diagnosis - Discharge Diagnosis (1) Renal mass Status: Chronic (2) Cardiomyopathy Status: Chronic (3) Brain mass Status: Acute (4) TRAN (acute kidney injury) Status: Resolved (5) Acute delirium Status: Chronic (6) Urinary tract infection Status: Acute (7) Diabetes mellitus type 2 in nonobese Status: Chronic Problem details: Resume home regimen at discharge (8) Gross hematuria Status: Resolved Discharge Plan - Patient Discharge Instructions ACTIVITY: Limited activity DIET: continue same diet Patient Instructions: Urinary Tract Infection, DI for Urinary Tract Infection (UTI), DI for Hyperkalemia, Hyperkalemia - Follow up Plan Follow up with: Maia Doan APRN [Nurse Practitioner] - Disposition: [facility] Home Medications: Home Medications Medication Instructions Recorded Confirmed Type Acetaminophen [Tylenol 500mg 500 mg PO Q6HP PRN tab 05/27/18 04/09/19 Rx tablet] Gabapentin [Neurontin 100mg 100 mg PO TID 10/24/18 04/09/19 History cap] Levalbuterol HCl [Xopenex 1.25 mg IH TIDRT 10/24/18 04/09/19 History 1.25mg/3mL neb] Metoprolol Tartrate [Lopressor 50 mg PO BID 10/24/18 04/09/19 History 50mg tablet] loperamide 2 mg capsule 2 - 4 mg PO Q6HP PRN 11/08/18 04/09/19 History Escitalopram Oxalate [Lexapro] 20 mg PO HS 04/09/19 04/09/19 History Saccharomyces Boulardii [Florastor] 250 mg PO DAILY 04/09/19 04/09/19 History Ceftriaxone 1 gm [Rocephin 1gm ADV] 1 gm IV DAILY #5 [email or web address] 04/10/19 Rx Prescriptions/Medication Reconciliation: New Ceftriaxone 1 gm [Rocephin 1gm ADV] 1 gm IV DAILY #5 [email or web address] Continued loperamide 2 mg capsule 2 - 4 mg PO Q6HP PRN PRN Reason: Diarrhea Acetaminophen [Tylenol 500mg tablet] 500 mg PO Q6HP PRN tab PRN Reason: As Needed For Fever Or Pain Metoprolol Tartrate [Lopressor 50mg tablet] 50 mg PO BID Levalbuterol HCl [Xopenex 1.25mg/3mL neb] 1.25 mg IH TIDRT Gabapentin [Neurontin 100mg cap] 100 mg PO TID Saccharomyces Boulardii [Florastor] 250 mg PO DAILY Escitalopram Oxalate [Lexapro] 20 mg PO HS
== END 2019-04-10 11:40 ==
LOC: ER 00:23 → 2ND 00:23
PROVIDERS: ADMIT Emergency Medicine; ATTEND Internal Medicine Adolescent Medicine
DX: F17.210 Nicotine dependence, cigarettes, uncomplicated; I42.9 Cardiomyopathy, unspecified; Z46.6 Encounter for fitting and adjustment of urinary device; E27.9 Disorder of adrenal gland, unspecified; N28.89 Other specified disorders of kidney and ureter; E11.9 Type 2 diabetes mellitus without complications; N40.0 Benign prostatic hyperplasia without lower urinary tract symptoms; B96.4 Proteus (mirabilis) (morganii) as the cause of diseases classified elsewhere; I48.2 Chronic atrial fibrillation; D49.6 Neoplasm of unspecified behavior of brain; Z79.4 Long term (current) use of insulin; N30.01 Acute cystitis with hematuria
CPT/HCPCS: 36415; 70450; 71010; 71045; 74176; 80048; 80053; 81001; 82962; 83605; 84484; 85007; 85025; 85651; 86140; 87040; 87086; 87088; 87186; 93005; 94640; 94761; 96365; 96366; 96367; 96375; 99285; G0378

== ENCOUNTER → 2019-04-19 11:06 | Outpatient (CLI) | payer MEDICARE, MEDICAID, SELFPAY ==
--- NOTE | 2019-04-19 11:11 | MR_ITS ---
PROCEDURE: MR HEAD/BRAIN WO/W CON CLINICAL INDICATION: ABNORMAL CT SCAN Confusion, insomnia, follow-up abnormal head CT COMPARISON: CTHEADW/O from 04/09/[address] head/brain wo con from 04/09/2019 TECHNIQUE: Routine pre and post multiplanar multi echo sequences performed FINDINGS: No midline shift, mass effect, or hydrocephalus. There is diffuse atrophy with prominent periventricular and subcortical T2 white matter hyperintensity consistent with ischemic gliotic change from microvascular disease. There is a small area of hyperintense T1 and T2 signal in the right posterior temporal lobe measuring approximately 1 by 0.6 cm. This shows hyperintensity on the diffusion and ADC images and is hypointense on the flash hemo images consistent with an area of intraparenchymal hemorrhage. This is more prominent on the flash hemo images measuring up to 16 mm consistent with an area of subacute hemorrhage. No abnormal enhancement in this region. The no areas of acute infarction. The cerebellopontine angles, cerebellum, and brainstem are unremarkable. The pituitary, optic chiasm, and cranial cervical junction has an unremarkable appearance. Upper cervical images show bulging disc at C3-C4 with canal stenosis. This is on the edge of the film and not well demonstrated. There does appear to be some cord impingement at this area. No mastoid effusion or sinus air-fluid level. IMPRESSION: 1. Abnormal area of signal intensity in the right posterior and inferior temporal lobe as described above consistent with an area of subacute hemorrhage/small intraparenchymal hematoma without significant mass effect. No abnormal enhancement. 2. Atrophy with chronic ischemic changes. 3. 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 MRI of the cervical spine may be of further value if clinically warranted Dictated by: Maximiliano Reina MD 04/25/2019 06:28 Signed by: <Electronically signed by Maximiliano Reina MD in [place]> 04/25/2019 06:28
== END ==
PROVIDERS: PCP Internal Medicine Adolescent Medicine; Visit Provider Internal Medicine Adolescent Medicine
DX: R93.0 Abnormal findings on diagnostic imaging of skull and head, not elsewhere classified (principal)
CPT/HCPCS: 70553; A9576

== ENCOUNTER → 2019-07-02 16:19 | Outpatient (CLI) | payer MEDICARE, MEDICAID, SELFPAY ==
[2019-07-02 17:04] LABS: Microscopic,Cath URINE MICROSCOPIC (MICROSCOPIC)
[2019-07-02 17:08] LABS: Appearance,Urine/Cath CLOUDY (Clear); Basophils # 0.1 K/mm3 (0-0.2); Basophils % 1.4 % (0.1-2.0); Bilirubin,Cath Negative (Negative); Blood, Urine/Cath 3+ (Negative); Eosinophils # 0.7 K/mm3 (0.0-0.4); Eosinophils % 10.5 % (0.1-12.0); Glucose,Urine/Cath (UA) Negative (Negative); Hemoglobin 12.8 g/dL (14.1-18.0); Ketones,Urine/Cath Negative (Negative); Leukocyte Esterase,Cath TRACE (Negative); Lymphocytes # 1.1 K/mm3 (0.7-4.5); Lymphocytes % 15.8 % (10-50); Mean Corpuscular HGB Conc 31.4 g/dL (31.8-35.4); Mean Corpuscular Hemoglobin 29.3 pg (27.0-31.2); Mean Corpuscular Volume 93.5 fl (80-94); Mean Platelet Volume 7.8 fl (7.4-10.4); Monocytes # 0.5 K/mm3 (0.1-1.0); Monocytes % 7.8 % (1.7-9.3); Neutrophils # 4.4 K/mm3 (1.8-7.8); Neutrophils % 64.6 % (37.0-80.0); Nitrate,Cath Negative (Negative); Platelet Count 272 K/mm3 (142-424); Protein,Urine/Cath 2+ (Negative); Red Blood Count 4.38 M/mm3 (4.60-6.20); Red Cell Distribution Width 15.4 % (11.5-17.5); Urobilinogen,Cath 0.2 EU/dl (0.2); White Blood Count 6.8 K/mm3 (4.8-10.8)
[2019-07-02 17:16] LABS: Bacteria,Urine/Cath TRACE /lpf; Color,Urine/Cath Orange (Yellow); RBC,Urine/Cath 50-100 # /hpf (0-3); Squamous Epithelial Ur./Cath Occasional #/hpf (0-5); WBC,Urine/Cath Occasional #/hpf (0-3)
== END ==
PROVIDERS: Visit Provider Internal Medicine Adolescent Medicine
DX: R31.9 Hematuria, unspecified
CPT/HCPCS: 81001; 85025; 87086; 87088; 87186

== ENCOUNTER → 2019-07-29 14:53 | Outpatient (REF) | payer MEDICARE, MEDICAID, SELFPAY ==
[2019-07-29 15:43] LABS: Microscopic, Urine URINE MICROSCOPIC (MICROSCOPIC)
[2019-07-29 16:25] LABS: Appearance,Urine CLEAR (Clear); Bilirubin,Urine Negative (Negative); Blood, Urine 1+ (Negative); Color,Urine YELLOW (Yellow); Glucose,Urine (UA) Negative (Negative); Ketones,Urine Negative (Negative); Leukocyte Esterase,Urine 3+ (Negative); Nitrate,Urine POSITIVE (Negative); PH,Urine 7.5 (5.0-8.5); Protein,Urine Negative (Negative); Specific Gravity, Urine 1.015 (1.005-1.030); Urobilinogen,Urine 0.2 EU/dl (0.2)
[2019-07-29 16:39] LABS: Amorphous Sediment,Urine 1+ /lpf; Bacteria,Urine 1+ /lpf
== END ==
LOC: LAB.DROPOF 14:53
PROVIDERS: Visit Provider Internal Medicine Adolescent Medicine
DX: N39.0 Urinary tract infection, site not specified (principal)
CPT/HCPCS: 81001; 87086; 87088; 87186

== ENCOUNTER → 2019-09-28 13:18 | Outpatient (CLI) | payer MEDICARE, MEDICAID, SELFPAY ==
--- NOTE | 2019-09-28 13:25 | CT_ITS ---
PROCEDURE: CT HEAD/BRAIN WO CON CLINICAL INDICATION: INCREASED CONFUSION COMPARISON: CT HEAD/BRAIN WO CON from 09/04/2019 TECHNIQUE: Axial images obtained. All CT scans at the facility use one or more dose reduction, viz: automated exposure control, ma/kV adjustment per patient size (including targeted exams where dose is matched to indication, i.e. head), or iterative reconstruction technique. FINDINGS: No midline shift, mass effect, intracranial hemorrhage, hydrocephalus, or extra-axial fluid collection is evident. Moderate to large amount of 4white matter hypodensity consistent with small it systems analyst vessel ischemic gliotic disease is noted. The calvarium has an unremarkable appearance. No mastoid effusion. No sinus air-fluid level. IMPRESSION: No acute intracranial finding Dictated by: Johny Quiñones 09/28/2019 14:27 Electronically signed by Johny Quiñones in [place] 09/28/2019 14:27
== END ==
PROVIDERS: PCP Internal Medicine Adolescent Medicine; Visit Provider Internal Medicine Adolescent Medicine
DX: R41.0 Disorientation, unspecified (principal)
CPT/HCPCS: 70450

== ENCOUNTER → 2020-10-05 15:41 | Outpatient (CLI) | payer MEDICARE, MEDICAID, SELFPAY | PROVIDERS: Visit Provider Nurse Practitioner Family | DX: J44.9 Chronic obstructive pulmonary disease, unspecified (principal) | CPT/HCPCS: 87070; 87205 ==

== ENCOUNTER 2020-10-11 07:04 | Day surgery (SDC) | payer MEDICARE, MEDICAID, SELFPAY ==
[2020-10-08 09:09] VITALS: BMI 29.9
[2020-10-11 08:02] VITALS: BP 124/83; PULSE 92; RESP 18; TEMP 36.3; O2SAT 97
[2020-10-11 08:24] LABS: POC Glucose,Bedside 81 (70-110)
--- NOTE | 2020-10-11 09:48 | P.PN_ITS ---
[facility] Anesthesia Checklist - Structural Data Admitted From: [place] Planned Operative Procedure/s: cysto/suprapubic cath Consent for Planned Operative Procedure(s) Verified: Yes - Additional verifications Anesthesia Reactions: No Hx Blood Transfusions: Yes Blood Transfusion Reaction: No - Airway Assessment C-Spine Mobility Assessed: Yes TMJ Mobility Assessed: Yes Dentition: Poor Dentition - Neurological Assessment Level of Consciousness: Awake, Alert, Appropriate - Anesthesia Plan Anesthesia Risk discussed: Yes Anesthesia Plan: Verified ASA Class: III Anesthesia Type: MAC [facility] History I have reviewed the patient's past medical history: Yes Medical History: Reports:: Atrial Fibrillation, Cancer, Cardiomyopathy, Congestive Heart Failure, Chronic Obstructive Pulmonary Disease (COPD), Diabetes Mellitus Type 2, Hyperlipidemia, Hypertension, Renal Disease, Seizures, Urinary Tract Infection Denies:: Diabetes Mellitus Type 1, Internal Pacemaker, MRSA *Have you ever received a pneumonia vaccine?: Yes *Have you received a flu vaccine this season?: Yes Other Medical History: Denies: Blood Transfusion Reaction Anesthesia experience/problems:: none Laterality Cases: Left: Arthroscopy Shoulder Other Surgeries: Yes: No Previous Surgery, Cancer Surgery (skin removal), Cholecystectomy, Colonoscopy, Skin Cancer Excision, Other. No: Pacemaker Amputation: No Fractures: Yes - *Social History Smoking Status: Former smoker Tobacco Type: cigarettes # Packs/Day (cigarettes): 1 #Yrs smoked (if former smoker): 42 Alcohol Intake: never Alcohol Intake Frequency:: other Substance Use Type: denies use *Occupational Status:: disabled Housing: intermediate Household Members: spouse, children *Travel in the last 8 weeks: None Family Hx:: No significant family history, Non-contributory
[2020-10-11 09:53] VITALS: TEMP 43
[2020-10-11 10:10] VITALS: BP 146/86; PULSE 99; RESP 18; TEMP 36.3; O2SAT 94
[2020-10-11 10:20] VITALS: BP 150/94; PULSE 90; RESP 18; O2SAT 95
[2020-10-11 10:30] VITALS: BP 152/91; PULSE 93; RESP 18; O2SAT 94
[2020-10-11 10:47] VITALS: BP 134/85; PULSE 93; RESP 18; O2SAT 95
--- NOTE | 2020-10-11 12:54 | P.OP_ITS ---
Date of procedure: 10/11/20 Pre-op Diagnosis:: Traumatic hypospadias and recurring urinary tract infections from chronic indwelling Polo Post-op Diagnosis:: Traumatic hypospadias/neurogenic bladder/BPH with bullous edema from the chronic indwelling Polo Procedure performed:: Cystotomy with placement of a suprapubic tube Surgeon:: Kermit Davies MD STORYBOARD ARTIST:: Cory Durham Anesthesia: MAC Estimated blood loss (mL): 0 Clinical Note:: Patient is a 70-year-old white male who is resident of a local senior living. He has had a chronic indwelling Polo for several years. Beginning to have some mild traumatic hypospadias from the indwelling Polo. He also has a history of repeated urinary tract infections. He has asked to be considered for placement of a suprapubic tube and presents for such today. Operative findings:: Cystoscopy revealed trilobar hyperplasia. There was some mild trabeculation and evidence of a [place] tree type bladder. There is also evidence of bullous edema from the chronic indwelling Polo. Operative note:: Patient taken to the operating room after informed consent was pain. Was placed on the operating table in the supine position and monitored anesthesia care administered. He was then placed into the dorsal lithotomy position and prepped draped in the standard surgical fashion. Preoperative antibiotics and sequential compression devices were placed. A 22 Vietnamese rigid cystoscope passed into the urethra into the prostatic urethra which showed trilobar hyperplasia. The bladder was entered and examined in a systematic fashion. There was bullous edema noted along the lateral and bladder base. The ureteral orifices were obscured by the bullous edema. There is evidence of some elongation of the bladder anterior and cephalad. The anticipated area of the cystotomy was made while indenting the bladder downwards and viewed by the cystoscope. We then removed the cystoscope and local anesthetic placed into the the marked area of the incision. A small incision was then made in the Karl tractor passed into the urethra and into the bladder. The instrument was placed upwards against the abdominal skin and Bovie cautery was used to incise over the Maria in the Karl came through the bladder defect. 16 Vietnamese Polo catheter then placed onto the Karl and it was removed back through the incision and into the bladder. Lastly was reviewed the standard 15 cc of water placed into the balloon. The cystoscope was replaced ensuring that the catheter was in the correct position and it was. The bladder then emptied and the scope removed. A 2-0 silk suture was used to close the suprapubic site and secured the suprapubic catheter to the skin. Patient tolerated procedure well there is minimal blood loss. Condition: stable Disposition: same day Specimens:: None Complications:: None
== END 2020-10-11 10:48 | disposition home or self-care (01) ==
PROVIDERS: PCP Internal Medicine Adolescent Medicine; Visit Provider Urology
PROC: 0TJB8ZZ Inspection of Bladder, Via Natural or Artificial Opening Endoscopic (ICD-10-PCS; CPT 52000; principal; 2020-10-11 09:00)
DX: N31.9 Neuromuscular dysfunction of bladder, unspecified (principal); Q54.8 Other hypospadias; N40.1 Benign prostatic hyperplasia with lower urinary tract symptoms; R60.9 Edema, unspecified; Z96.0 Presence of urogenital implants; Z87.440 Personal history of urinary (tract) infections; Z85.9 Personal history of malignant neoplasm, unspecified; I42.9 Cardiomyopathy, unspecified; I50.9 Heart failure, unspecified; J44.9 Chronic obstructive pulmonary disease, unspecified; E11.9 Type 2 diabetes mellitus without complications; I11.0 Hypertensive heart disease with heart failure; E78.5 Hyperlipidemia, unspecified; I48.91 Unspecified atrial fibrillation
CPT/HCPCS: 51102; 77002; 36415; 80048; 82962; 85025; 86328; 96374

== ENCOUNTER → 2020-10-11 07:12 | Outpatient (CLI) | payer MEDICARE, MEDICAID, SELFPAY ==
[2020-10-11 07:36] LABS: Basophils # 0.1 K/mm3 (0-0.2); Basophils % 0.9 % (0.1-2.0); Eosinophils # 0.3 K/mm3 (0.0-0.4); Eosinophils % 3.8 % (0.1-12.0); Hematocrit 53.6 % (42.0-52.0); Hemoglobin 16.1 g/dL (14.1-18.0); Lymphocytes # 1.7 K/mm3 (0.7-4.5); Lymphocytes % 19.3 % (10-50); Mean Corpuscular HGB Conc 30.1 g/dL (31.8-35.4); Mean Corpuscular Hemoglobin 29.9 pg (27.0-31.2); Mean Corpuscular Volume 99.4 fl (80-94); Mean Platelet Volume 6.9 fl (7.4-10.4); Monocytes # 0.5 K/mm3 (0.1-1.0); Monocytes % 5.4 % (1.7-9.3); Neutrophils # 6.3 K/mm3 (1.8-7.8); Neutrophils % 70.6 % (37.0-80.0); Platelet Count 307 K/mm3 (142-424); Red Cell Distribution Width 13.9 % (11.5-17.5); White Blood Count 8.9 K/mm3 (4.8-10.8)
[2020-10-11 07:37] LABS: Chloride 99 mmol/L (98-107); Potassium 4.6 mmoL/L (3.5-5.1); Sodium 141 mmol/L (136-145)
[2020-10-11 07:40] LABS: Anion Gap 8.6 mEq/L (5-15); Blood Urea Nitrogen 21 mg/dl (9-20); Carbon Dioxide 38 mmol/L (22.0-30.0); Estimated Glomerular Filt Rate 84 ml/min (>60); GFR (African American) 101 ML/MIN (>60)
[2020-10-11 07:41] LABS: Calcium 10.1 mg/dl (8.4-10.2); Glucose 103 mg/dl (74-100)
[2020-10-11 08:03] LABS: Coronavirus 19 IgG Antibody Positive (Negative); Coronavirus 19 IgM Antibody Negative (Negative)
== END ==
PROVIDERS: Visit Provider Urology
DX: N31.9 Neuromuscular dysfunction of bladder, unspecified (principal)
CPT/HCPCS: 36415; 80048; 85025; 86328

== ENCOUNTER → 2020-10-15 06:55 | Outpatient (CLI) | payer MEDICARE, MEDICAID, SELFPAY ==
[2020-10-15 14:26] LABS: Blood Urea Nitrogen 25 mg/dl (9-20); Estimated Glomerular Filt Rate 96 ml/min (>60); GFR (African American) 116 ML/MIN (>60)
== END ==
PROVIDERS: Visit Provider Nurse Practitioner Family
DX: Z01.818 Encounter for other preprocedural examination (principal); N31.9 Neuromuscular dysfunction of bladder, unspecified
CPT/HCPCS: 36415; 82565; 84520

== ENCOUNTER → 2020-10-23 13:22 | Outpatient (CLI) | payer MEDICARE, MEDICAID, SELFPAY ==
--- NOTE | 2020-10-23 13:29 | CT_ITS ---
PROCEDURE: CT CHEST WO/W CON CLINCAL INDICATION: LUNG NODULE COMPARISON: CT CHESTW CT chest w con from 05/16/2018 TECHNIQUE: IV Contrast: 75ml Isovue 370 Axial images obtained with sagittal and coronal reformats. All CT scans at the facility use one or more dose reduction, viz: automated exposure control, ma/kV adjustment per patient size (including targeted exams where dose is matched to indication, i.e. head), or iterative reconstruction technique. FINDINGS: There has been interval development the 2.3 by 1.9 by 1.7 centimeter right upper lobe lung nodule with an area of cavitation and spiculated margins. Appearance is most consistent with a malignant lesion such as squamous cell carcinoma metastatic lesion from head and neck cancer. A CT of the neck with contrast is recommended for further workup. Tuberculosis skin test could be performed for reassurance. The right basilar calcified granuloma is incidentally noted. There is a 2.1 by 1.0 facet either right lower lobe lobulated density and smaller densities peripherally worrisome for additional location of metastatic disease. Distal infectious component cannot be excluded. Left lung is clear. 1.5 centimeter hypodense nodule with microcalcifications in the right lobe of the thyroid gland. This was present on 2018 CT therefore does not represent a metastatic lesion, however slow growing thyroid malignancy can't be entirely excluded. Further evaluation with thyroid ultrasound on a nonemergent basis is recommended, unless ultrasound monitoring is already on going. There is no suspicious thoracic adenopathy visible on noncontrast CT. Visualized vasculature is has an unremarkable unenhanced appearance. There is minimal pericardial fluid layering superiorly within normal limits. Limited images of the upper abdomen reveal extensive motion artifact from positioning of patient's arms and GI tract movement. Suspicious right renal lesion there are small nonobstructing renal stones and additional bilateral renal cysts. There is a left adrenal nodule which measures 4.1 centimeters on current axial images. In 2018 on a slightly different projection this measured greater than 4.5 centimeters. Macroscopic fat is present, however urology consultation is recommended given the size of the lesion. Visualization of the remaining upper abdominal structures is nearly nondiagnostic. A small hiatal hernia is noted however. Small bone 9 left rib sclerotic lesion is unchanged since 2018. A large benign hemangioma is present in the 9th vertebral body. These are benign however when large can cause weakening of the bony structure of the vertebral body. IMPRESSION: 1. A 2.3 centimeter spiculated right upper lobe pulmonary nodule highly suspicious for malignancy. Infectious cause cannot be entirely excluded and TB test may be reassuring. CT of the neck with contrast recommended. 2. A 2.1 centimeter right lower lobe nodule with peripheral densities worrisome for additional area of malignancy. Distal infectious component cannot be excluded. 3. Abnormal thyroid nodule. Ultrasound follow-up recommended. 4. Stable 4.1 centimeter left adrenal nodule. Urology consultation may be appropriate given size of the lesion. 5. Other minor findings as described above. Dictated by: Bhavani Vergara MD 10/23/2020 17:16 Bhavani Vergara MD in [place] 10/23/2020 17:16
== END ==
PROVIDERS: PCP Internal Medicine Adolescent Medicine; Visit Provider Internal Medicine Adolescent Medicine
DX: R91.1 Solitary pulmonary nodule (principal)
CPT/HCPCS: 71270; Q9967

== ENCOUNTER 2020-11-25 06:54 | Day surgery (SDC) | payer MEDICARE, MEDICAID, SELFPAY ==
[2020-11-25] VITALS (10 sets, daily range): BP systolic 117–179; BP diastolic 77–111; PULSE 76–95; RESP 16–18; TEMP 36.4–36.9; O2SAT 94–100; BMI 25.7
--- NOTE | 2020-11-25 09:06 | HMH.ANESCL ---
[facility] Anesthesia Checklist - Patient Identification Patient Identification: Arm Band - Structural Data Admitted From: Home Planned Operative Procedure/s: Cysto Consent for Planned Operative Procedure(s) Verified: Yes - Additional verifications Anesthesia Reactions: No Hx Blood Transfusions: Yes Blood Transfusion Reaction: No - Airway Assessment C-Spine Mobility Assessed: Yes TMJ Mobility Assessed: Yes Dentition: Poor Dentition - Neurological Assessment Level of Consciousness: Awake, Alert Hx Seizures: Yes Numbness or tingling in extremities: No - Anesthesia Plan Anesthesia Risk discussed: Yes Anesthesia Plan: Verified ASA Class: III Anesthesia Type: General [facility] History I have reviewed the patient's past medical history: Yes Medical History: Reports:: Atrial Fibrillation, Cancer, Cardiomyopathy, Congestive Heart Failure, Chronic Obstructive Pulmonary Disease (COPD), Diabetes Mellitus Type 2, Hyperlipidemia, Hypertension, Renal Disease, Seizures, Urinary Tract Infection Denies:: Diabetes Mellitus Type 1, Internal Pacemaker, MRSA *Have you ever received a pneumonia vaccine?: Yes *Have you received a flu vaccine this season?: Yes Other Medical History: Denies: Blood Transfusion Reaction Anesthesia experience/problems:: PONV Laterality Cases: Left: Arthroscopy Shoulder Other Surgeries: Yes: No Previous Surgery, Cancer Surgery (skin removal), Cardiac Catheterization, Cholecystectomy, Colonoscopy, Skin Cancer Excision, Other. No: Pacemaker Amputation: No Fractures: Yes - *Social History Smoking Status: Former smoker Tobacco Type: cigarettes # Packs/Day (cigarettes): 1 #Yrs smoked (if former smoker): 42 Alcohol Intake: never Alcohol Intake Frequency:: other Substance Use Type: denies use *Occupational Status:: disabled Housing: long term *Travel in the last 8 weeks: None Family Hx:: No significant family history, Non-contributory
[2020-11-25 09:07] LABS: Basophils # 0.1 K/mm3 (0-0.2); Basophils % 0.6 % (0.1-2.0); Eosinophils # 0.2 K/mm3 (0.0-0.4); Eosinophils % 2.3 % (0.1-12.0); Hematocrit 50.9 % (42.0-52.0); Hemoglobin 15.9 g/dL (14.1-18.0); Lymphocytes # 0.7 K/mm3 (0.7-4.5); Lymphocytes % 7.9 % (10-50); Mean Corpuscular HGB Conc 31.2 g/dL (31.8-35.4); Mean Corpuscular Hemoglobin 30.8 pg (27.0-31.2); Mean Corpuscular Volume 98.7 fl (80-94); Mean Platelet Volume 7.5 fl (7.4-10.4); Monocytes # 0.3 K/mm3 (0.1-1.0); Monocytes % 3.1 % (1.7-9.3); Neutrophils # 7.6 K/mm3 (1.8-7.8); Neutrophils % 86.1 % (37.0-80.0); Platelet Count 258 K/mm3 (142-424); Red Blood Count 5.15 M/mm3 (4.60-6.20); Red Cell Distribution Width 14.3 % (11.5-17.5); White Blood Count 8.9 K/mm3 (4.8-10.8)
[2020-11-25 09:08] LABS: MANUAL DIFFERENTIAL MANUAL DIFFERENTIAL (MANUAL DIFF)
[2020-11-25 09:09] LABS: Chloride 107 mmol/L (98-107); Potassium 4.6 mmoL/L (3.5-5.1); Sodium 140 mmol/L (136-145)
[2020-11-25 09:10] LABS: POC Glucose,Bedside 94 (70-110)
[2020-11-25 09:12] LABS: Blood Urea Nitrogen 19 mg/dl (9-20); Creatinine Clearance Estimated 85 mL/min (50-200); Estimated Glomerular Filt Rate 96 ml/min (>60); GFR (African American) 116 ML/MIN (>60)
[2020-11-25 09:13] LABS: Anion Gap 8.6 mEq/L (5-15); Calcium 9.6 mg/dl (8.4-10.2); Carbon Dioxide 29 mmol/L (22.0-30.0); Glucose 116 mg/dl (74-100)
[2020-11-25 09:40] LABS: Eosinophils % 1 % (0-3); Lymphocytes % 7 % (10-50); Monocytes % 2 % (2-9); Neutrophils % 90 % (42-76); Platelet Estimate Normal; RBC Morphology Normal; Total Cells Counted 100
[2020-11-25 09:52] LABS: Coronavirus 19 IgG Antibody Positive (Negative); Coronavirus 19 IgM Antibody Negative (Negative)
--- NOTE | 2020-11-25 10:37 | HMH.ANESI ---
[facility] Anesthesia Record Part I Intake, IV Amount: 600 Estimated blood loss (mL): 0 Urine output (mL): 0 Blood Pressure: 126/78 SaO2: 100 Pulse Rate: 95 Respiratory Rate: 16 Temperature: 98.0 F Patient is:: Drowsy Stable to PACU at:: 10:33
--- NOTE | 2020-11-25 11:01 | P.OP_ITS ---
Date of procedure: 11/25/20 Pre-op Diagnosis:: Neurogenic bladder Post-op Diagnosis:: Same Procedure performed:: Cystostomy with suprapubic tube placement Surgeon:: Kermit Davies MD OTHER SPORTS OFFICIAL:: Other (ruth abrroso) Anesthesia: GETA Estimated blood loss (mL): 0 Clinical Note:: Patient is a 70-year-old white male who is resident of a local personal long-term. He has had an indwelling Polo catheter for several years and has some traumatic hypospadias. He returns for placement of suprapubic tube. Suprapubic tube placement was performed last month and patient states that it drained well for a week and then stopped draining. He states there may have been some trauma from the catheter getting caught on something during moving him. Operative findings:: Cystoscopy revealed some bullous edema in the base the bladder. There is evidence of trabeculation and cellule formation. Prostatic urethra is long and obstructing. Operative note:: Patient taken to the operating room after informed consent was obtained. Was placed on the operating table in the supine position and general anesthesia ad ministered. Preoperative antibiotics were administered and he was placed into the dorsal lithotomy position. His Polo catheter was removed prior to prepping and draping. Cystoscopy was performed revealing an elongated prostate and by lobar hyperplasia. Bladder was entered and examined in a systematic fashion. Again noted was trabeculation, cellule formation and bullous edema along the floor the bladder. The previously noted site of cystostomy placement was not evident on the anterior bladder. The cystoscope removed and our [place] tractor passed into the bladder and angled superiorly an incision was made in the previously performed suprapubic site. Bovie cautery was used to cauterize on top of the tip of the Karl tractor until the tractor came through the bladder wall. The Karl then opened and an 18 Italian catheter placed onto the Karl and it was pulled back through the cystostomy. 15 cc placed into the balloon and the Karl removed. Cystoscopy was again performed verifying that the balloon was inflated and was in the proper position. A silk suture was used to secure the catheter to the skin and it was pulled up to the anterior part of the bladder. Sterile dressing applied. Patient tolerated the procedure well there are no complications. Condition: stable Disposition: PACU Specimens:: None Complications:: None
--- NOTE | 2020-11-26 08:33 | P.PN_ITS ---
[facility] Anesthesia Record Part II Discharge Time: 11:03 Destination: Surgical Day Care (OP Surgery) PACU nurse assessment reviewed?: Yes Patient Condition:: Good Anesthesia Complications:: None Swallowing reflex intact?: Yes Cyanosis?: No Blood Pressure: 138/81 Pulse Rate: 83 Temperature: 97.9 F Mental Status: Alert & Oriented Pain level:: 0 Nausea and/or vomitting:: None Intake, IV Amount: 0
[2020-11-26 08:34] VITALS: BP 138/81; PULSE 83; TEMP 36.6
== END 2020-11-25 11:52 | disposition home or self-care (01) ==
LOC: OR 06:55
PROVIDERS: PCP Internal Medicine Adolescent Medicine; Visit Provider Urology
PROC: (CPT 51102; principal; 2020-11-25 09:00)
DX: N31.9 Neuromuscular dysfunction of bladder, unspecified (principal); Q54.8 Other hypospadias; R60.9 Edema, unspecified; N36.8 Other specified disorders of urethra; N32.89 Other specified disorders of bladder; N40.1 Benign prostatic hyperplasia with lower urinary tract symptoms; E11.9 Type 2 diabetes mellitus without complications; I11.0 Hypertensive heart disease with heart failure; I50.9 Heart failure, unspecified; I48.91 Unspecified atrial fibrillation; J44.9 Chronic obstructive pulmonary disease, unspecified; Z85.9 Personal history of malignant neoplasm, unspecified; N28.9 Disorder of kidney and ureter, unspecified
CPT/HCPCS: 51705; 36415; 80048; 82962; 85007; 85025; 86328; 96374; J2405

== ENCOUNTER → 2021-01-14 09:10 | Outpatient (CLI) | payer MEDICARE, MEDICAID, SELFPAY ==
[2021-01-14 14:13] LABS: Basophils # 0.1 K/mm3 (0-0.2); Eosinophils # 0.2 K/mm3 (0.0-0.4); Eosinophils % 4.1 % (0.1-12.0); Hematocrit 47.2 % (42.0-52.0); Hemoglobin 14.6 g/dL (14.1-18.0); Lymphocytes # 1.3 K/mm3 (0.7-4.5); Lymphocytes % 21.8 % (10-50); Mean Corpuscular Hemoglobin 30.8 pg (27.0-31.2); Mean Corpuscular Volume 99.3 fl (80-94); Mean Platelet Volume 8.5 fl (7.4-10.4); Monocytes # 0.4 K/mm3 (0.1-1.0); Neutrophils # 3.9 K/mm3 (1.8-7.8); Neutrophils % 66.1 % (37.0-80.0); Platelet Count 318 K/mm3 (142-424); Red Blood Count 4.75 M/mm3 (4.60-6.20); Red Cell Distribution Width 14.2 % (11.5-17.5); White Blood Count 5.9 K/mm3 (4.8-10.8)
[2021-01-14 14:16] LABS: Alanine Aminotransferase 8 U/L (12-78); Albumin Level 3.3 g/dl (3.5-5.0); Albumin/Globulin Ratio 1.2 (1.1-1.8); Alkaline Phosphatase 118 U/L (38-126); Anion Gap 7.7 mEq/L (5-15); Aspartate Amino Transferase 17 U/L (17-59); Bilirubin,Total 0.4 mg/dl (0.2-1.3); Blood Urea Nitrogen 17 mg/dl (9-20); Calcium 9.1 mg/dl (8.4-10.2); Carbon Dioxide 30 mmol/L (22.0-30.0); Chloride 104 mmol/L (98-107); Estimated Glomerular Filt Rate 96 ml/min (>60); GFR (African American) 116 ML/MIN (>60); Globulin 2.7 g/dL (1.3-3.2); Glucose 76 mg/dl (74-100); Potassium 4.7 mmoL/L (3.5-5.1); Sodium 137 mmol/L (136-145)
[2021-01-14 15:00] LABS: Hemoglobin A1C 5.4 % (4.0-6.0)
== END ==
PROVIDERS: Visit Provider Nurse Practitioner Family
DX: I10 Essential (primary) hypertension (principal); E11.9 Type 2 diabetes mellitus without complications; I48.91 Unspecified atrial fibrillation
CPT/HCPCS: 36415; 80053; 83036; 85025

== ENCOUNTER → 2021-04-14 07:08 | Outpatient (CLI) | payer MEDICARE, MEDICAID, SELFPAY ==
[2021-04-14 14:05] LABS: Alanine Aminotransferase 6 U/L (12-78); Albumin/Globulin Ratio 1.1 (1.1-1.8); Alkaline Phosphatase 124 U/L (38-126); Aspartate Amino Transferase 15 U/L (17-59); Bilirubin,Total 0.5 mg/dl (0.2-1.3); Blood Urea Nitrogen 18 mg/dl (9-20); Calcium 8.6 mg/dl (8.4-10.2); Carbon Dioxide 29 mmol/L (22.0-30.0); Chloride 104 mmol/L (98-107); Cholesterol 83 mg/dl (140-200); Estimated Glomerular Filt Rate 112 ml/min (>60); GFR (African American) 135 ML/MIN (>60); Globulin 2.8 g/dL (1.3-3.2); Glucose 79 mg/dl (74-100); HDL Cholesterol 41 mg/dl (40-60); Sodium 139 mmol/L (136-145); Total Protein,Serum 5.8 g/dl (6.3-8.2); Triglycerides 39 mg/dl (30-150); VLDL Cholesterol 8 mg/dL (0-40)
[2021-04-14 14:11] LABS: Basophils # 0.1 K/mm3 (0-0.2); Basophils % 1.2 % (0.1-2.0); Eosinophils # 0.3 K/mm3 (0.0-0.4); Eosinophils % 5.6 % (0.1-12.0); Hematocrit 43.5 % (42.0-52.0); Hemoglobin 13.7 g/dL (14.1-18.0); Lymphocytes # 1.3 K/mm3 (0.7-4.5); Lymphocytes % 23.4 % (10-50); Mean Corpuscular HGB Conc 31.5 g/dL (31.8-35.4); Mean Corpuscular Hemoglobin 30.3 pg (27.0-31.2); Mean Corpuscular Volume 96.1 fl (80-94); Mean Platelet Volume 8.6 fl (7.4-10.4); Monocytes # 0.5 K/mm3 (0.1-1.0); Monocytes % 8.3 % (1.7-9.3); Neutrophils # 3.5 K/mm3 (1.8-7.8); Neutrophils % 61.5 % (37.0-80.0); Platelet Count 332 K/mm3 (142-424); Red Blood Count 4.53 M/mm3 (4.60-6.20); Red Cell Distribution Width 14.5 % (11.5-17.5); White Blood Count 5.7 K/mm3 (4.8-10.8)
[2021-04-14 14:16] LABS: Direct LDL Cholesterol 32.49 mg/dL (100-129)
[2021-04-14 14:38] LABS: Hemoglobin A1C 5.5 % (4.0-6.0)
== END ==
PROVIDERS: Visit Provider Nurse Practitioner Family
DX: E11.9 Type 2 diabetes mellitus without complications (principal); I10 Essential (primary) hypertension; Z79.4 Long term (current) use of insulin; Z79.899 Other long term (current) drug therapy
CPT/HCPCS: 36415; 80053; 80061; 83036; 85025

== ENCOUNTER → 2021-05-18 06:43 | Outpatient (CLI) | payer MEDICARE, MEDICAID, SELFPAY ==
[2021-05-19 06:47] LABS: Microscopic, Urine URINE MICROSCOPIC (MICROSCOPIC)
[2021-05-19 13:51] LABS: Appearance,Urine CLEAR (Clear); Blood, Urine 3+ (Negative); Color,Urine YELLOW (Yellow); Glucose,Urine (UA) Negative (Negative); Ketones,Urine Negative (Negative); Leukocyte Esterase,Urine 1+ (Negative); Nitrate,Urine POSITIVE (Negative); Protein,Urine 2+ (Negative); Specific Gravity, Urine 1.025 (1.005-1.030)
[2021-05-19 14:08] LABS: Bilirubin,Urine Negative (Negative)
[2021-05-19 14:09] LABS: Bacteria,Urine 4+ /lpf; RBC,Urine 20-50 #/hpf (0-3); Squamous Epithelial Cell,Urine Occasional #/hpf (0-5); WBC,Urine 50-100 #/hpf (0-3)
== END ==
PROVIDERS: Visit Provider Internal Medicine Adolescent Medicine
DX: N39.0 Urinary tract infection, site not specified (principal); B96.20 Unspecified Escherichia coli [E. coli] as the cause of diseases classified elsewhere; B96.5 Pseudomonas (aeruginosa) (mallei) (pseudomallei) as the cause of diseases classified elsewhere
CPT/HCPCS: 81001; 87086; 87088; 87186

== ENCOUNTER → 2021-07-22 18:55 | Outpatient (CLI) | payer MEDICARE, MEDICAID, SELFPAY ==
[2021-07-22 19:19] LABS: Basophils # 0.1 K/mm3 (0-0.2); Eosinophils # 0.3 K/mm3 (0.0-0.4); Eosinophils % 4.4 % (0.1-12.0); Hematocrit 46.3 % (42.0-52.0); Hemoglobin 14.2 g/dL (14.1-18.0); Lymphocytes # 0.8 K/mm3 (0.7-4.5); Lymphocytes % 13.4 % (10-50); Mean Corpuscular HGB Conc 30.7 g/dL (31.8-35.4); Mean Corpuscular Volume 101.1 fl (80-94); Mean Platelet Volume 8.9 fl (7.4-10.4); Monocytes # 0.5 K/mm3 (0.1-1.0); Monocytes % 7.8 % (1.7-9.3); Neutrophils # 4.4 K/mm3 (1.8-7.8); Neutrophils % 73.4 % (37.0-80.0); Platelet Count 380 K/mm3 (142-424); Red Blood Count 4.58 M/mm3 (4.60-6.20); White Blood Count 5.9 K/mm3 (4.8-10.8)
[2021-07-22 19:41] LABS: Alanine Aminotransferase 6 U/L (12-78); Albumin Level 3.2 g/dl (3.5-5.0); Albumin/Globulin Ratio 1.1 (1.1-1.8); Alkaline Phosphatase 119 U/L (38-126); Anion Gap 7.8 mEq/L (5-15); Aspartate Amino Transferase 17 U/L (17-59); Bilirubin,Total 0.2 mg/dl (0.2-1.3); Blood Urea Nitrogen 15 mg/dl (9-20); Calcium 8.8 mg/dl (8.4-10.2); Carbon Dioxide 35 mmol/L (22.0-30.0); Chloride 103 mmol/L (98-107); Cholesterol 96 mg/dl (140-200); Estimated Glomerular Filt Rate 96 ml/min (>60); GFR (African American) 116 ML/MIN (>60); Glucose 102 mg/dl (74-100); HDL Cholesterol 49 mg/dl (40-60); Potassium 4.8 mmoL/L (3.5-5.1); Sodium 141 mmol/L (136-145); Total Protein,Serum 6.2 g/dl (6.3-8.2); Triglycerides 49 mg/dl (30-150); VLDL Cholesterol 10 mg/dL (0-40)
[2021-07-22 19:52] LABS: Direct LDL Cholesterol 36.24 mg/dL (100-129)
[2021-07-22 22:48] LABS: Hemoglobin A1C 5.4 % (4.0-6.0)
== END ==
PROVIDERS: Visit Provider Nurse Practitioner Family
DX: E11.9 Type 2 diabetes mellitus without complications (principal); N18.30 Chronic kidney disease, stage 3 unspecified; Z79.899 Other long term (current) drug therapy
CPT/HCPCS: 36415; 80053; 80061; 83036; 85025

== ENCOUNTER → 2021-08-05 07:41 | Outpatient (CLI) | payer MEDICARE, MEDICAID, SELFPAY ==
[2021-08-05 07:47] LABS: Microscopic, Urine URINE MICROSCOPIC (MICROSCOPIC)
[2021-08-05 15:17] LABS: Basophils # 0.2 K/mm3 (0-0.2); Basophils % 1.6 % (0.1-2.0); Eosinophils # 0.1 K/mm3 (0.0-0.4); Eosinophils % 1.2 % (0.1-12.0); Hematocrit 46.5 % (42.0-52.0); Hemoglobin 14.2 g/dL (14.1-18.0); Lymphocytes # 0.4 K/mm3 (0.7-4.5); Lymphocytes % 3.6 % (10-50); Mean Corpuscular HGB Conc 30.5 g/dL (31.8-35.4); Mean Corpuscular Hemoglobin 31.1 pg (27.0-31.2); Mean Corpuscular Volume 101.8 fl (80-94); Mean Platelet Volume 9.8 fl (7.4-10.4); Monocytes # 0.5 K/mm3 (0.1-1.0); Monocytes % 5.3 % (1.7-9.3); Neutrophils # 8.9 K/mm3 (1.8-7.8); Neutrophils % 88.2 % (37.0-80.0); Platelet Count 324 K/mm3 (142-424); Red Blood Count 4.57 M/mm3 (4.60-6.20); Red Cell Distribution Width 14.5 % (11.5-17.5); White Blood Count 10.1 K/mm3 (4.8-10.8)
[2021-08-05 15:36] LABS: MANUAL DIFFERENTIAL MANUAL DIFFERENTIAL (MANUAL DIFF)
[2021-08-05 16:28] LABS: Chloride 102 mmol/L (98-107); Potassium 4.7 mmoL/L (3.5-5.1); Sodium 141 mmol/L (136-145)
[2021-08-05 16:30] LABS: Blood Urea Nitrogen 39 mg/dl (9-20); Estimated Glomerular Filt Rate 55 ml/min (>60); GFR (African American) 66 ML/MIN (>60)
[2021-08-05 16:31] LABS: Alanine Aminotransferase 4 U/L (12-78); Alkaline Phosphatase 122 U/L (38-126); Anion Gap 10.7 mEq/L (5-15); Aspartate Amino Transferase 18 U/L (17-59); Bilirubin,Total 0.3 mg/dl (0.2-1.3); Calcium 9.1 mg/dl (8.4-10.2); Carbon Dioxide 33 mmol/L (22.0-30.0); Glucose 87 mg/dl (74-100)
[2021-08-05 16:42] LABS: Eosinophils % 2 % (0-3); Lymphocytes % 4 % (10-50); Macrocytosis 1+; Monocytes % 5 % (2-9); Neutrophils % 89 % (42-76); Platelet Estimate Normal; Total Cells Counted 100
[2021-08-05 17:01] LABS: Thyroid Stimulating Hormone 0.68 uIU/mL (0.465-4.68)
[2021-08-05 18:43] LABS: Appearance,Urine CLOUDY (Clear); Bilirubin,Urine Negative (Negative); Blood, Urine 3+ (Negative); Color,Urine YELLOW (Yellow); Glucose,Urine (UA) Negative (Negative); Ketones,Urine Negative (Negative); Leukocyte Esterase,Urine 3+ (Negative); Nitrate,Urine POSITIVE (Negative); PH,Urine 8.5 (5.0-8.5); Protein,Urine 2+ (Negative); Urobilinogen,Urine 0.2 EU/dl (0.2)
[2021-08-05 20:06] LABS: Bacteria,Urine 4+ /lpf; Squamous Epithelial Cell,Urine Occasional #/hpf (0-5)
== END ==
PROVIDERS: Visit Provider Nurse Practitioner Family
DX: N39.0 Urinary tract infection, site not specified (principal); B96.4 Proteus (mirabilis) (morganii) as the cause of diseases classified elsewhere; Z79.899 Other long term (current) drug therapy
CPT/HCPCS: 36415; 80053; 81001; 84443; 85007; 85025; 87086; 87088; 87186

== ENCOUNTER → 2021-10-06 12:05 | Outpatient (CLI) | payer OTHER, MEDICARE, MEDICAID, SELFPAY ==
[2021-10-06 12:09] LABS: Microscopic, Urine URINE MICROSCOPIC (MICROSCOPIC)
[2021-10-06 12:27] LABS: Appearance,Urine CLEAR (Clear); Bilirubin,Urine Negative (Negative); Blood, Urine 1+ (Negative); Color,Urine YELLOW (Yellow); Glucose,Urine (UA) Negative (Negative); Ketones,Urine Negative (Negative); Leukocyte Esterase,Urine 2+ (Negative); Nitrate,Urine POSITIVE (Negative); PH,Urine 8.5 (5.0-8.5); Protein,Urine TRACE (Negative)
[2021-10-06 13:00] LABS: Amorphous Sediment,Urine 1+ /lpf; Bacteria,Urine 3+ /lpf; RBC,Urine Occasional #/hpf (0-3); Triple Phosphate Crystal,Urine 1+ /lpf
== END ==
LOC: LAB.DROPOF 12:06 → HMH.JM 10-07 10:50
PROVIDERS: Visit Provider Nurse Practitioner Family
DX: R41.89 Other symptoms and signs involving cognitive functions and awareness (principal); B96.89 Other specified bacterial agents as the cause of diseases classified elsewhere; R82.90 Unspecified abnormal findings in urine
CPT/HCPCS: 81001; 87086; 87088; 87186

== ENCOUNTER → 2021-10-13 06:27 | Outpatient (CLI) | payer OTHER, MEDICARE, MEDICAID, SELFPAY ==
[2021-10-13 08:09] LABS: Basophils # 0.1 K/mm3 (0-0.2); Basophils % 1.3 % (0.1-2.0); Eosinophils # 0.1 K/mm3 (0.0-0.4); Eosinophils % 2.6 % (0.1-12.0); Hematocrit 47.4 % (42.0-52.0); Hemoglobin 14.1 g/dL (14.1-18.0); Mean Corpuscular HGB Conc 29.7 g/dL (31.8-35.4); Mean Corpuscular Hemoglobin 31.2 pg (27.0-31.2); Mean Corpuscular Volume 104.9 fl (80-94); Mean Platelet Volume 8.3 fl (7.4-10.4); Monocytes # 0.4 K/mm3 (0.1-1.0); Monocytes % 8.5 % (1.7-9.3); Neutrophils # 3.2 K/mm3 (1.8-7.8); Neutrophils % 66.5 % (37.0-80.0); Platelet Count 397 K/mm3 (142-424); Red Blood Count 4.52 M/mm3 (4.60-6.20); Red Cell Distribution Width 17.2 % (11.5-17.5); White Blood Count 4.8 K/mm3 (4.8-10.8)
[2021-10-13 08:42] LABS: Chloride 102 mmol/L (98-107); Sodium 134 mmol/L (136-145)
[2021-10-13 08:43] LABS: Potassium 5.5 mmoL/L (3.5-5.1)
[2021-10-13 08:45] LABS: Alanine Aminotransferase 6 U/L (12-78); Alkaline Phosphatase 149 U/L (38-126); Aspartate Amino Transferase 19 U/L (17-59); Bilirubin,Total 0.4 mg/dl (0.2-1.3); Blood Urea Nitrogen 19 mg/dl (9-20); Estimated Glomerular Filt Rate 74 ml/min (>60); GFR (African American) 89 ML/MIN (>60)
[2021-10-13 08:46] LABS: Albumin Level 2.9 g/dl (3.5-5.0); Anion Gap 9.5 mEq/L (5-15); Calcium 8.9 mg/dl (8.4-10.2); Carbon Dioxide 28 mmol/L (22.0-30.0); Glucose 71 mg/dl (74-100); Total Protein,Serum 5.9 g/dl (6.3-8.2)
[2021-10-13 11:16] LABS: Hemoglobin A1C 5.3 % (4.0-6.0)
== END ==
PROVIDERS: Visit Provider Nurse Practitioner Family
DX: E11.9 Type 2 diabetes mellitus without complications (principal)
CPT/HCPCS: 36415; 80053; 83036; 85025